=== PATIENT | female | born 1940 | race Caucasian/White ===

== ENCOUNTER → 2018-02-16 13:00 | Outpatient (CLI) | payer MEDICARE, SELFPAY | PROVIDERS: PCP Family Medicine | DX: Z23 Encounter for immunization (principal) | CPT/HCPCS: 90471; 90662 ==

== ENCOUNTER → 2018-06-16 08:42 | Outpatient (CLI) | payer MEDICARE, SELFPAY ==
[2018-06-16 10:00] LABS: Hemoglobin A1C% w Est Avg Glu 5.7 % (4.0-6.0)
[2018-06-16 10:43] LABS: Alanine Aminotransferase 25 IU/L (9-52); Albumin 4.4 g/dL (3.5-5.0); Albumin Globulin Ratio 1.5 (1.0-2.8); Alkaline Phosphatase 53 U/L (38-126); Aspartate Aminotransferase 27 IU/L (14-36); BUN Creatinine Ratio 25.7 (6-22); Bilirubin Total 0.7 mg/dL (0.2-1.3); Blood Urea Nitrogen 18 mg/dL (7-17); Calcium 9.8 mg/dL (8.4-10.2); Carbon Dioxide 28 mmol/L (22-32); Chloride 102 mmol/L (98-107); Cholesterol 203 mg/dL (140-199); Estimated Glomerular Filt Rate > 60.0 mL/min (>60); Globulin 2.9 g/dL (1.7-4.1); Glucose 114 mg/dL (80-110); HDL Cholesterol 55 mg/dL (40-60); HEMOLYSIS < 15 (0-50); LDL Cholesterol Calculated 120 mg/dL (<100); Potassium 5.1 mmol/L (3.4-5.1); Sodium 140 mmol/L (137-145); Total Protein 7.3 g/dL (6.3-8.2); Triglycerides 141 mg/dL (35-150)
== END ==
PROVIDERS: PCP Family Medicine; Visit Provider Family Medicine
DX: E11.9 Type 2 diabetes mellitus without complications (principal); Z13.220 Encounter for screening for lipoid disorders
CPT/HCPCS: 36415; 80053; 80061; 83036

== ENCOUNTER → 2019-03-10 17:59 | Outpatient (CLI) | payer MEDICARE, SELFPAY | PROVIDERS: PCP Family Medicine | DX: Z23 Encounter for immunization (principal) | CPT/HCPCS: 90471; 90662 ==

== ENCOUNTER → 2020-01-29 14:08 | Outpatient (CLI) | payer MEDICARE, SELFPAY ==
[2020-01-30 22:54] LABS: COVID19 Sendout Not Detected (Not Detected)
== END ==
PROVIDERS: PCP Family Medicine; Visit Provider Physician Assistant
DX: Z11.59 Encounter for screening for other viral diseases (principal)
CPT/HCPCS: 87635

== ENCOUNTER 2020-02-01 10:24 | Day surgery (SDC) | payer MEDICARE, SELFPAY ==
--- NOTE | 2020-01-30 12:48 | PM.PREOP ---
Pre-operative Note COVID-19 COVID-19 status: Negative Interval Note History & Physical reviewed/Exam performed by Physician: Yes Changes to H&P: No H&P completed within 30 days and has changed as indicated here:: Fasting glucose at surgery 120
--- NOTE | 2020-02-01 08:37 | P.OP_ITS ---
Operative Date/Time/Diagnoses Date of procedure: 02/01/20 Time of procedure: 11:45 Procedure & Clinicians Procedure: Preoperative diagnoses: 1. Right nuclear sclerotic and cortical cataract. 2. Diabetes without retinopathy. No longer treated after 100 lb weight loss. 3. status post left lower lid resection for basal cell carcinoma. Postoperative diagnoses: 1. Cataract removed by phacoemulsification with placement of posterior chamber intraocular lens. Procedure: Phacoemulsification with posterior chamber intraocular lens implant Surgeon: Mouna Wang MD Complications: None Specimen: None Implant: [id number]+22.5 Blood loss: None Anesthesia: Retrobulbar with monitored standby Description of procedure: Patient presents with a complaint of decreased vision due to cataract which is affecting activities of daily living distance and near. The patient wants surgery to improve vision. She understands the extra risk of having surgery during cold with 19 and tested negative prior to surgery for the virus. The patient was taken to the operating room and given IV sedation. A retrobulbar block consisting of 6 cc of 2% xylocaine without epinephrine mixed half and half with 0.5% Marcaine with 1 cc of hyaluronidase added is placed between the medial and lateral 1/3 of the inferior orbital rim. The eye is manually massaged for 30 sec, prepped using Betadine solution, and draped in the usual sterile fashion. Temporal approach was made, a 1 mm side-port incision was made 90? from the proposed clear corneal incision position. Phenylephrine 1.5% mixed with 1% xylocaine 0.2 cc was placed into the anterior chamber. Viscoat followed by Healon was then placed. A 2.6 mm clear incision with a 2.6 mm blade was placed. A 360 degree capsulorrhexis style capsulotomy was then performed with a cystitome needle on a Healon. Hydrodelineation and hydrodissection were performed. The phacoemulsification unit is introduced, and sculpting notice used to groove the central lens. It is then removed in chopping mode. Epi nucleus is removed with epinuclear mode and irrigation aspiration was used to remove the peripheral cortex. The posterior capsule is polished. The intraocular lens is selected, inspected, power confirmed, and placed in the posterior chamber. The wound was stromally hydrated and tested for leaks, there was none and it was left sutureless. Vigamox 0.1 cc was placed into the anterior chamber. Kenalog 0.2 cc was placed in the superior subconjunctival space. A drop of antibiotic and was placed and the eye was patched and shielded. The patient was stable and returned to the recovery room in excellent condition. Dictated by: Mouna Wang MD Copy to: [facility] Same procedure as scheduled: Yes
[2020-02-01] MEDS: PROPARACAINE 0.5% OPHTH SOL 2 DROPS EYE-OP (10:55)
[2020-02-01] MEDS: CATARACT EYE COMPOUND (10 DROPS/SYRINGE) 3 DROPS EYE-OP (10:58)
[2020-02-01 10:59] VITALS: BP 155/78; PULSE 70; RESP 114; TEMP 37; O2SAT 100; BMI 22.6
[2020-02-01] MEDS: LIDOCAINE 2% 4 ML, BUPIVACAINE 0.5% (PF) 4 ML, HYALURONIDASE 150 UNIT INJ (12:13)
[2020-02-01] MEDS: CHONDROIDTIN/SOD HYALURONATE 1.05 ML SYRINGE INTRAOCULA (12:24)
[2020-02-01] MEDS: ERYTHROMYCIN OPHTH 1 GM OINT 1 APPLIC EYE-RIGHT (12:25)
[2020-02-01] MEDS: HYALURONATE SODIUM 10 MG/ML SYRINGE INJ (12:25)
[2020-02-01] MEDS: MOXIFLOXACIN INJ 5 MG/ML VIAL EYE-OP (12:25)
[2020-02-01] MEDS: BALANCED SALT IRRIG SOLN NO.2 500 ML, EPINEPHrine 1 MG IRR (12:26)
[2020-02-01] MEDS: PHENYLEPHRINE/LIDOCAINE VIAL (OR) 0.2 ML EYE-OP (12:26)
[2020-02-01] MEDS: TRIAMCINOLONE 50 MG/5 ML VIAL INJ (12:26)
[2020-02-01 13:00] VITALS: BP 149/76; PULSE 57; RESP 16; TEMP 36.7; O2SAT 100
== END 2020-02-01 13:32 | disposition home or self-care (01) ==
LOC: OR 10:26
PROVIDERS: PCP Family Medicine; Referring Provider Ophthalmology; Visit Provider Ophthalmology
PROC: (CPT 66984; principal; 2020-02-01 11:45)
DX: H25.811 Combined forms of age-related cataract, right eye (principal); E11.9 Type 2 diabetes mellitus without complications
CPT/HCPCS: 66984; J0171; J2704; J3301; J3470

== ENCOUNTER → 2020-02-12 08:57 | Outpatient (CLI) | payer MEDICARE, SELFPAY ==
[2020-02-13 13:21] LABS: COVID19 Sendout Not Detected (Not Detect)
== END ==
PROVIDERS: PCP Family Medicine; Visit Provider Nurse Practitioner
DX: Z11.59 Encounter for screening for other viral diseases (principal)
CPT/HCPCS: 87635

== ENCOUNTER 2020-02-15 07:27 | Day surgery (SDC) | payer MEDICARE, SELFPAY ==
--- NOTE | 2020-02-14 17:36 | PM.PREOP ---
Pre-operative Note COVID-19 COVID-19 status: Negative Interval Note History & Physical reviewed/Exam performed by Physician: Yes Changes to H&P: No H&P completed within 30 days and has changed as indicated here:: No longer diabetic since 60 pound weight loss Fasting glucose this AM 121.
--- NOTE | 2020-02-15 07:41 | PM.OP.1 ---
Operative Date/Time/Diagnoses Date of procedure: 02/15/20 Time of procedure: 08:45 Procedure & Clinicians Procedure: Preoperative diagnoses: 1. Complex left advanced nuclear sclerotic and cortical cataract. 2. Diabetes controlled with weight loss. 3. Basal cell removal left lower lid by Mohs procedure with secondary reconstruction. Postoperative diagnoses: 1. Complex Cataract removed by phacoemulsification with placement of posterior chamber intraocular lens. Capsular dye was used. Procedure: Phacoemulsification with posterior chamber intraocular lens implant Surgeon: Mouna Wang MD Complications: None Specimen: None Implant: +25.5, target -1.50 Blood loss: None Anesthesia: Retrobulbar with monitored standby Description of procedure: Patient presents with a complaint of decreased vision due to cataract which is affecting activities of daily living. The patient wants surgery to improve vision. The cataract is now advanced due to delay of surgery for Covid 19 and for previous resection left lower lid for carcinoma. She required capsular dye. She has chosen a modified monovision target of -1.50. The patient was taken to the operating room and given IV sedation. A retrobulbar block consisting of 6 cc of 2% xylocaine without epinephrine mixed half and half with 0.5% Marcaine with 1 cc of hyaluronidase added is placed between the medial and lateral 1/3 of the inferior orbital rim. The eye is manually massaged for 30 sec, prepped using Betadine solution, and draped in the usual sterile fashion. Temporal approach was made, a 1 mm side-port incision was made 90? from the proposed clear corneal incision position. Phenylephrine 1.5% mixed with 1% xylocaine 0.2 cc was placed into the anterior chamber. A poor red reflex with anterior stromal haze was present. An air bubble was placed in this was followed by vision dye. This was then irrigated out with BSS. Viscoat followed by Healon was then placed. A 2.6 mm clear incision with a 2.6 mm blade was placed. A 360 degree capsulorrhexis style capsulotomy was then performed with a cystitome needle on a Healon greatly aided by the capsular dye. Hydrodelineation and hydrodissection were performed. The phacoemulsification unit is introduced, and sculpting notice used to groove the central lens. It is then removed in chopping mode. Epi nucleus is removed with epinuclear mode and irrigation aspiration was used to remove the peripheral cortex. The posterior capsule is polished. The intraocular lens is selected, inspected, power confirmed, and placed in the posterior chamber. The wound was stromally hydrated and tested for leaks, there was none and it was left sutureless. Vigamox 0.1 cc was placed into the anterior chamber. Kenalog 0.2 cc was placed in the superior subconjunctival space. A drop of antibiotic and was placed and the eye was patched and shielded. The patient was stable and returned to the recovery room in excellent condition. Dictated by: Mouna Wang MD Copy to: [facility] Same procedure as scheduled: Yes
[2020-02-15] MEDS: PROPARACAINE 0.5% OPHTH SOL 2 DROPS EYE-OP (07:55)
[2020-02-15] MEDS: CATARACT EYE COMPOUND (10 DROPS/SYRINGE) 3 DROPS EYE-OP (07:59)
[2020-02-15 08:07] VITALS: BP 180/72; PULSE 67; RESP 16; TEMP 36.8; O2SAT 97; BMI 22.4
[2020-02-15] MEDS: LIDOCAINE 2% 4 ML, BUPIVACAINE 0.5% (PF) 4 ML, HYALURONIDASE 150 UNIT INJ (08:50)
[2020-02-15] MEDS: ERYTHROMYCIN OPHTH 1 GM OINT 1 APPLIC EYE-LEFT (09:07)
[2020-02-15] MEDS: HYALURONATE SODIUM 10 MG/ML SYRINGE INJ (09:07)
[2020-02-15] MEDS: CHONDROIDTIN/SOD HYALURONATE 1.05 ML SYRINGE INTRAOCULA (09:07)
[2020-02-15] MEDS: MOXIFLOXACIN INJ 5 MG/ML VIAL EYE-OP (09:07)
[2020-02-15] MEDS: TRIAMCINOLONE 50 MG/5 ML VIAL INJ (09:08)
[2020-02-15] MEDS: PHENYLEPHRINE/LIDOCAINE VIAL (OR) 0.2 ML EYE-OP (09:08)
[2020-02-15] MEDS: TRYPAN BLUE 0.5 ML SYRINGE INJ (09:08)
[2020-02-15] MEDS: BALANCED SALT IRRIG SOLN NO.2 500 ML, EPINEPHrine 1 MG IRR (09:09)
[2020-02-15 09:35] VITALS: BP 157/72; PULSE 56; RESP 16; TEMP 36.1; O2SAT 98
== END 2020-02-15 10:07 | disposition home or self-care (01) ==
LOC: OR 07:29
PROVIDERS: PCP Family Medicine; Referring Provider Family Medicine; Visit Provider Ophthalmology
PROC: (CPT 66982; principal; 2020-02-15 08:45)
DX: H25.812 Combined forms of age-related cataract, left eye (principal); E11.9 Type 2 diabetes mellitus without complications
CPT/HCPCS: 66982; J0171; J2704; J3301; J3470

== ENCOUNTER → 2020-03-05 07:40 | Outpatient (CLI) | payer MEDICARE, SELFPAY ==
[2020-03-05 08:40] LABS: Hemoglobin A1C% w Est Avg Glu 5.7 % (4.0-6.0)
[2020-03-05 08:54] LABS: Alanine Aminotransferase 18 IU/L (<35); Albumin 4.5 g/dL (3.5-5.0); Albumin Globulin Ratio 1.7 (1.0-2.8); Alkaline Phosphatase 81 U/L (38-126); Aspartate Aminotransferase 27 IU/L (14-36); BUN Creatinine Ratio 25.8 (6-22); Bilirubin Total 0.6 mg/dL (0.2-1.3); Blood Urea Nitrogen 16 mg/dL (7-17); Calcium 9.5 mg/dL (8.4-10.2); Carbon Dioxide 29 mmol/L (22-32); Chloride 98 mmol/L (98-107); Cholesterol 178 mg/dL (140-199); Estimated Glomerular Filt Rate > 60.0 mL/min (>60); Globulin 2.7 g/dL (1.7-4.1); Glucose 96 mg/dL (80-110); HDL Cholesterol 70 mg/dL (40-60); HEMOLYSIS < 15 (0-50); LDL Cholesterol Calculated 90 mg/dL (<100); Potassium 4.7 mmol/L (3.4-5.1); Sodium 135 mmol/L (137-145); Total Protein 7.2 g/dL (6.3-8.2); Triglycerides 91 mg/dL (35-150)
== END ==
PROVIDERS: PCP Family Medicine; Referring Provider Family Medicine; Visit Provider Family Medicine
DX: E11.9 Type 2 diabetes mellitus without complications (principal); E66.3 Overweight; E78.5 Hyperlipidemia, unspecified
CPT/HCPCS: 36415; 80053; 80061; 83036

== ENCOUNTER → 2020-03-08 | Outpatient (CLI) | payer MEDICARE, SELFPAY | PROVIDERS: PCP Family Medicine; Referring Provider Internal Medicine; Visit Provider Internal Medicine | DX: Z23 Encounter for immunization (principal) | CPT/HCPCS: 90471; 90686 ==

== ENCOUNTER → 2020-04-06 09:01 | Outpatient (CLI) | payer MEDICARE, SELFPAY ==
--- NOTE | 2020-04-06 09:03 | DI.MG.S_ITS ---
BILATERAL DIGITAL SCREENING MAMMOGRAM 3D/2D WITH CAD: 04/06/2020 CLINICAL: Routine screening. Comparison is made to exams dated: 10/11/2015 mammogram, 07/25/2014 mammogram, and 02/24/2013 mammogram - [facility]. There are scattered fibroglandular elements in both breasts. Current study was also evaluated with a Computer Aided Detection (CAD) system. No significant masses, calcifications, or other findings are seen in either breast. There has been no significant interval change. IMPRESSION: NEGATIVE There is no mammographic evidence of malignancy. A 1 year screening mammogram is recommended. This exam was interpreted at Station ID: [id number]. NOTE: For mammograms, a report in lay terms will be sent to the patient. Approximately 15% of breast malignancies will not be visualized mammographically. In the management of a palpable breast mass, a negative mammogram must not discourage biopsy of a clinically suspicious lesion. Electronically Signed By: Alfonso dias/komal:04/06/2020 10:59:51 letter sent: Normal Exam ACR BI-RADS Category 1: Negative [id number]
--- NOTE | 2020-04-06 09:03 | DI.ECHO.S_ITS ---
[place]---------+ [facility] +---------+ : : [address] : : : : [phone] : : : : Phone: [phone] Echocardiogram Report + + :Name: MILAN KEITA Study Date: 04/06/2020 Height: 70 in : :[facility] Weight: 153 lb : : Gender: Female BSA: 1.9 m2 : :: 1940 Age: 80 yrs BP: 183/88 mmHg: :Reason For Study: MURMUR : :Ordering Physician: Lily : :Buck Performed By: Hollie Arguello : :Referring: LILY GREY : + + Interpretation Summary 1) Normal left ventricular thickness, size, wall motion, and systolic function (EF 60-65%). 2) The right ventricle is mildly dilated and has normal function. 3) Aortic valve is sclerotic with no stenosis or regurgitation. 4) Severe hypertension present during the study (BP 183/88mmHg). 5) No prior Echo available for comparison. Procedure: A two-dimensional transthoracic echocardiogram with color flow and Doppler was performed. The study quality was technically adequate. There is no prior echocardiogram noted for this patient. The patient was in normal sinus rhythm during the exam. Left Ventricle: The left ventricle is normal in size and wall thickness. Proximal septal thickening is noted. The ejection fraction is estimated to be 60-65%. Left ventricular systolic function appears normal without focal wall motion abnormalities. Diastolic parameters suggest probable normal left ventricular diastolic function and normal filling pressures. Right Ventricle: The right ventricle is mildly dilated. The right ventricular systolic function is normal. Atria: The left atrial size is normal. Right atrial size is normal. There is no Doppler evidence for an interatrial shunt. Mitral Valve: The mitral valve leaflets are mildly calcified. There is mild mitral annular calcification. There is trace mitral regurgitation. Aortic Valve: The aortic valve is trileaflet. The aortic valve opens well. The aortic valve is mildly calcified. There is no aortic valve stenosis. No aortic regurgitation is present. Tricuspid Valve: The tricuspid valve is normal in structure and function. There is mild tricuspid regurgitation. The right ventricular systolic pressure is estimated to be at least 28 mmHg based on an estimated right atrial pressure of 3 mm Hg. Pulmonic Valve: The pulmonic valve leaflets are thin and pliable; valve motion is normal. There is mild pulmonic regurgitation. Great Vessels: The aortic root is normal size. The ascending aorta is at the upper limits of normal in size. The pulmonary artery is normal size. The IVC is of normal diameter and collapses greater than 50% with a sniff. This suggests a low right atrial pressure of 3 mm Hg. Pericardium/ Pleura There is no pericardial effusion. MMode/2D Measurements & Calculations LVIDd: 4.3 cm LVOT diam: 2.2 cm LVIDs: 3.0 cm Ao root diam: 3.3 cm FS: 29.6 % asc Aorta Diam: 3.6 cm IVSd: 0.84 cm LVPWd: 0.75 cm LV connelly. diameter/BSA (cm/m^2): 2.3 LV sys. diameter/BSA (cm/m^2): 1.6 LA A2 area: 22.6 cm2 RA long axis: 5.4 cm LA A4 area: 16.0 cm2 RA area: 16.8 cm2 LA length (vol): 5.0 cm RA vol: 44.3 ml LA vol: 61.1 ml RA : 23.8 ml/m2 LA vol index: 32.8 ml/m2 IVC diam: 2.0 cm RVD1 (basal): 4.7 cm TAPSE: 2.8 cm Doppler Measurements & Calculations Ao V2 max: 189.4 cm/sec LVOT Max Yovany: 139.3 cm/sec Ao V2 mean: 130.6 cm/sec LV V1 max P.8 mmHg Ao max P.3 mmHg LV V1 VTI: 30.9 cm Ao mean P.9 mmHg JACOB(I,D): 2.8 cm2 Ao V2 VTI: 41.3 cm JACOB(V,D): 2.8 cm2 sev ratio: 0.75 JACOB indexed to BSA (cm^2/m^2): 1.5 MV E max yovany: 56.6 cm/sec TR max yovany: 263.5 cm/sec MV A max yovany: 94.8 cm/sec TR max P.9 mmHg MV E/A: 0.60 PA V2 max: 108.2 cm/sec Med Peak E' Yovany: 5.5 cm/sec PA V2 mean: 73.6 cm/sec E/E' med: 10.3 PA mean P.5 mmHg Lat Peak E' Yovany: 5.7 cm/sec PA Accel Time: 0.11 sec E/E' lat: 10.0 E/e' average: 10.2 MV dec time: 0.29 sec SV(LVOT): 117.3 ml Reading Physician:12:20 PM
== END ==
PROVIDERS: PCP Family Medicine; Referring Provider Family Medicine; Visit Provider Family Medicine
DX: I07.1 Rheumatic tricuspid insufficiency (principal); R01.1 Cardiac murmur, unspecified; Z12.31 Encounter for screening mammogram for malignant neoplasm of breast
CPT/HCPCS: 77063; 77067; 93306

== ENCOUNTER 2020-05-26 14:17 | Emergency (ER) | payer MEDICARE, SELFPAY ==
[2020-05-26 14:25] VITALS: BP 202/91; PULSE 76; RESP 16; TEMP 36.1; O2SAT 99; BMI 21.7
[2020-05-26 16:12] VITALS: PULSE 82; O2SAT 96
[2020-05-26 16:13] VITALS: BP 225/98; PULSE 81; O2SAT 98
--- NOTE | 2020-05-26 16:27 | ED_ITS ---
HPI - Back Pain/Injury General Chief Complaint: Back Pain/Injury Stated Complaint: Lower Back Pain, Left Side, Nauseous Time Seen by Provider: 05/26/20 16:13 Source: patient Mode of arrival: Ambulatory Limitations: no limitations History of Present Illness HPI Narrative: 80-year-old female diabetic complains of many days of left lower back pain. She states the pain is worse when she moves and improves with rest. She denies any radiation of the pain. She has no numbness, tingling or weakness. She denies any specific trauma. She denies any urinary complaints such as dysuria, frequency or urgency. She denies any trouble controlling bowel or bladder. She attributes the low back pain to and uncomfortable sleeping situation at home as she has a broken, old mattress. She denies much in the way of improvement with the Tylenol and Motrin she has been taking. She denies headache, blurred vision or trouble with speech. She denies chest pain or shortness of breath. She denies abdominal pain or nausea or vomiting. MD Complaint: back pain Onset (ago): day(s) Duration: constant Similar Symptoms Previously: No Location: lumbar spine Severity: moderate Quality: aching Radiation: none Relieving factors: immobilization Exacerbating factors: walking Associated symptoms: denies other symptoms Related Data Home Medications Medication Instructions Recorded Confirmed NAPROXEN (NAPROSYN) 500 mg PO Q DAY #0 02/04/12 02/29/20 acetaminophen 500 mg capsule 500 - 1,000 mg PO Q6H PRN 10/31/19 02/29/20 Previous Rx's Medication Instructions Recorded oxyquinoline 0.025 %-sodium lauryl 1 each VAG .3x Weekly #113.4 gram 10/31/19 sulfate 0.01 % vaginal gel cyclobenzaprine 10 mg PO TID PRN #14 tab 05/26/20 lidocaine [Lidoderm] 1 patch TOP DAILY #15 each 05/26/20 Allergies Allergy/AdvReac Type Severity Reaction Status Date / Time No Known Drug Allergies Allergy Verified 05/26/20 14:28 Review of Systems Constitutional Constitutional: Denies chills, Denies fatigue, Denies fever(s), Denies frequent falls, Denies lethargy and Denies weakness Eyes Eyes: Denies change in vision, Denies eye discharge, Denies irritation and Denies loss of vision ENT Ears, Nose, Mouth, and Throat: Denies change in voice, Denies dizziness, Denies neck pain, Denies sore throat and Denies throat swelling Cardiovascular Cardiovascular: Denies chest pain, Denies irregular heart rhythm, Denies lightheadedness, Denies palpitations, Denies dyspnea, Denies dyspnea on exertion and Denies orthopnea Respiratory Respiratory: Denies cough, Denies dyspnea, Denies dyspnea on exertion and Denies wheezing Gastrointestinal Gastrointestinal: Denies abdominal pain, Denies change in bowel habits, Denies diarrhea, Denies nausea and Denies vomiting Musculoskeletal Musculoskeletal: Reports back pain, Denies neck pain and Denies numbness Integumentary/Breasts Skin/Breast: Denies pruritus, Denies erythema, Denies rash and Denies wounds Neurologic Neurologic: Denies behavioral changes, Denies confusion, Denies dizziness, Denies frequent falls, Denies loss of vision, Denies numbness and Denies weakness Psychiatric Psychiatric: Denies anxiety, Denies behavioral changes, Denies confusion, Denies depression, Denies homicidal ideation and Denies suicidal ideation Endocrine Endocrine: Denies fatigue, Denies flushing and Denies palpitations Hematologic/Lymphatic Hematologic/Lymphatic: Denies easy bruising Allergic/Immunologic Allergic/Immunologic: Denies urticaria, Denies throat swelling and Denies wheezing Patient History Medical History Arthritis Cataract Chicken pox Diabetes mellitus (1992) Dry skin dermatitis (2011) Foot pain (2012) 1 para 1 Hearing loss (2010) Intracervical pessary Measles (1948) Mumps (1947) Nasal bone fracture Normal Papanicolaou smear Osteoarthritis Peripheral neuropathy (1992) Rubella Skin cancer (1993) Surgical History Anesthesia History of cataract removal with insertion of prosthetic lens History of cataract removal with insertion of prosthetic lens History of third molar tooth extraction (1953) History of tonsillectomy (1947) Status post biopsy of skin (1987) Status post hysterectomy (03/26/09) Family History Father No problems noted. Grandfather Heart attack Grandmother Leukemia Mother Glioblastoma multiforme Brother No problems noted. Family/Other No problems noted. Social History marital status: household members: none Smoking Status: Former smoker alcohol intake: former substance use type: does not use Smoking Status: Former smoker Substance Use Type: does not use Exam Narrative Exam Narrative: GENERAL: [80] year old patient appears stated age. Well- nourished, well-developed patient, in mild distress. Standing upright in her room, rubbing her left lower back HEAD: Atraumatic. Normocephalic. EYES: Pupils equal round and reactive. Extraocular motions intact. No scleral icterus. No injection or drainage. ENT: Nose without bleeding, purulent drainage. Throat without erythema, tonsillar hypertrophy or exudate. Airway patent. NECK: Trachea midline. Non tender CARDIOVASCULAR: Regular rate and rhythm without murmurs, gallops, or rubs. RESPIRATORY: Clear to auscultation. Breath sounds equal bilaterally. No wheezes, rales, or rhonchi. GASTROINTESTINAL: Abdomen soft, non-tender, nondistended. EXTREMITIES: No edema or joint tenderness. BACK: No CVA tenderness. Patient reports pain in a very precise spot just left of the midline on the left upper sacrum. She has no saddle anesthesia, lower extremity weakness, numbness. Patellar reflexes bilaterally 1+ NEURO: AOx3. SKIN: No rash or erythema of visible areas Initial Vital Signs Initial Vital Signs: Vital Signs Temperature 97.0 F L 05/26/20 14:25 Pulse Rate 76 05/26/20 14:25 Respiratory Rate 16 05/26/20 14:25 Blood Pressure 202/91 H 05/26/20 14:25 Pulse Oximetry 99 05/26/20 14:25 Course Orders Ordered: Discontinued Medications Cyclobenzaprine HCl (Cyclobenzaprine 10 Mg Prepack) 1 bottle MISC SEEINSTR ONE Stop: 05/26/20 17:33 Last Admin: 05/26/20 17:38 Dose: 1 bottle Documented by: RIP Lidocaine (Lidocaine Patch 1 Each Adh..Patch) 1 each TOP NOW ONE Stop: 05/26/20 17:33 Last Admin: 05/26/20 17:38 Dose: 1 each Documented by: RIP Vital Signs Vital signs: Vital Signs - 8 hr 05/26/20 14:25 05/26/20 16:12 05/26/20 16:13 Temperature 97.0 F L Pulse Rate 76 82 81 Respiratory Rate 16 Blood Pressure 202/91 H 225/98 H Pulse Oximetry 99 96 98 05/26/20 17:41 Temperature Pulse Rate 76 Respiratory Rate 18 Blood Pressure 216/95 H Pulse Oximetry 98 MDM - Back Pain/Injury MDM Narrative Medical decision making narrative: Multiple etiologies for patient's symptoms considered including: [Musculoskeletal pain versus kidney stone versus UTI versus lumbar radiculopathy versus other. Multiple etiologies of back pain considered including; Epidural abscess, cauda equina, mass occupying lesion, and other considered Patient's symptoms improved over duration of stay with above-stated therapies. Findings and discharge diagnosis discussed with patient/family followed by verbalization of understanding Return precautions discussed with patient/family whom verbalize understanding. Discharge Plan Departure Patient Disposition: Home Clinical Impression: Lumbar paraspinal muscle spasm Activity Restrictions/Additional Instructions: *You have been diagnosed with [lumbar spasm without sciatica] *What to do: *Take medications as directed *Follow up with your primary care provider in 2-3 days, call for an appointment. Let them know you were seen in the Emergency Department and that we ask that you be seen in follow up *Return to ER if you should have any new, worsening or concerning symptoms Prescriptions: New cyclobenzaprine 10 mg tablet 10 mg PO TID PRN (Reason: muscle spasm) Qty: 14 RF: 0 lidocaine [Lidoderm] 5 % adhesive patch,medicated 1 patch TOP DAILY Qty: 15 RF: 0 No Action NAPROXEN (NAPROSYN) 500 mg PO Q DAY Qty: 0 RF: 0 acetaminophen 500 mg capsule 500 - 1,000 mg PO Q6H PRN (Reason: pain) RF: 0 Trimo-Suazo Jelly 0.025-0.01 % gel 1 each VAG .3x Weekly Qty: 113.4 RF: 12 Referrals: Luz Jane DO [Primary Care Provider] -
[2020-05-26] MEDS: CYCLOBENZAPRINE 10 MG PREPACK 1 BOTTLE MISC (17:38)
[2020-05-26] MEDS: LIDOCAINE PATCH 1 EACH ADH..PATCH TOP (17:38)
[2020-05-26 17:41] VITALS: BP 216/95; PULSE 76; RESP 18; O2SAT 98
== END 2020-05-26 17:48 | disposition home or self-care (01) ==
PROVIDERS: Emergency Provider Emergency Medicine; PCP Family Medicine
DX: M62.830 Muscle spasm of back (principal)
CPT/HCPCS: 99281; 99283

== ENCOUNTER → 2020-05-30 11:05 | Outpatient (CLI) | payer MEDICARE, SELFPAY ==
--- NOTE | 2020-05-30 11:06 | DI.RAD.S_ITS ---
PROCEDURE: XR LUMBAR SPINE 2-3V INDICATIONS: low back pain TECHNIQUE: 3 views of the lumbar spine were acquired. COMPARISON: None. FINDINGS: Bones: [id number] compression fractures involving L1, L2, L3. Remaining vertebral body heights appear grossly preserved. Diffuse spondylosis and facet arthropathy. Multilevel degenerative endplate sclerosis and spurring. Mild to moderate diffuse lumbar disc space . Lateral curvature of the spine. Soft tissues: Scattered vascular calcifications seen in the aorta. IMPRESSION: [id number] L1-L2 and L3 compression fractures, technically age indeterminate. Recommend clinical correlation to assess acuity. If necessary, further evaluation with MRI could be performed Dictated by: Keaton Sequeira M.D. on 05/30/2020 at 13:07 Approved by: Keaton Sequeira M.D. on 05/30/2020 at 13:10
== END ==
PROVIDERS: PCP Family Medicine; Referring Provider Family Medicine; Visit Provider Family Medicine
DX: S32.029A Unspecified fracture of second lumbar vertebra, initial encounter for closed fracture (principal); S32.039A Unspecified fracture of third lumbar vertebra, initial encounter for closed fracture; M62.830 Muscle spasm of back
CPT/HCPCS: 72100

== ENCOUNTER → 2020-06-22 08:07 | Outpatient (CLI) | payer MEDICARE, SELFPAY ==
[2020-06-22] MEDS: COVID-19 VACC #1, MRNA(MOD) 100 MCG/0.5 ML VIAL IM (08:13)
== END ==
PROVIDERS: PCP Family Medicine; Visit Provider Internal Medicine
DX: Z23 Encounter for immunization (principal)
CPT/HCPCS: 0011A; 91301

== ENCOUNTER → 2020-07-20 08:04 | Outpatient (CLI) | payer MEDICARE, SELFPAY ==
[2020-07-20] MEDS: COVID-19 VACC #2, MRNA(MOD) 100 MCG/0.5 ML VIAL IM (08:07)
== END ==
PROVIDERS: PCP Family Medicine; Visit Provider Internal Medicine
DX: Z23 Encounter for immunization (principal)
CPT/HCPCS: 0012A; 91301

== ENCOUNTER 2020-09-07 09:45 | Outpatient (RCR) | payer MEDICARE, SELFPAY ==
--- NOTE | 2020-06-14 11:40 | PT.OIE ---
Current Diagnoses Low back pain (06/14/20) Muscle weakness (generalized) (06/14/20) Other abnormalities of gait and mobility (06/14/20) Abnormal posture (06/14/20) Past Medical History (Last Reviewed 05/26/20 @ 18:52 by Kendrick Santizo DO) Arthritis Cataract Chicken pox Diabetes mellitus (1992) Dry skin dermatitis (2011) Foot pain (2012) 1 para 1 Hearing loss (2010) Intracervical pessary Measles (1947) Mumps (1947) Nasal bone fracture Normal Papanicolaou smear Osteoarthritis Peripheral neuropathy (1992) Rubella Skin cancer (1993) Past Surgical History (Last Reviewed 05/26/20 @ 18:52 by Kendrick Santizo DO) Anesthesia History of cataract removal with insertion of prosthetic lens History of cataract removal with insertion of prosthetic lens History of third molar tooth extraction (1953) History of tonsillectomy (1947) Status post biopsy of skin (1987) Status post hysterectomy (03/26/09) Visit Care Team Role Provider Type Luz Jane DO Attending Provider Physician Primary Care Provider Referring Provider Specialty: [facility] Address: [address] [place] [address], [address], [facility] Email: [email or web address] Physical Therapy Initial Evaluation PT-OP-A Visit Information Start: 06/11/20 18:12 Freq: Status: Active Protocol: Document 06/14/20 09:51 LRN (Rec: 06/14/20 11:35 SURIN [id number]) Out-Patient Physical Therapy Visit Information Visit Information Visit Type Initial Evaluation Visit Start Time 09:51 Visit Stop Time 10:40 Total Visit Minutes 49 Visit Number 1 Evaluation Information Evaluation Date 06/14/20 Precautions Precautions X-rays show Compression fx's L1, L2, L3 age indeterminate. Uncontrolled HBP Diabetes II PT-OP-B Current Condition Start: 06/11/20 18:12 Freq: Status: Active Protocol: Document 06/14/20 09:51 LRN (Rec: 06/14/20 11:35 LRN [id number]) Current Condition History of Current Condition Onset Date 05/24/20 Current Complaints Back pain once up and walking. Back brace helps when moving History of Current Condition States has happened once before in March 2020 and with walking, just got over it, and overdosed self on aspirin, without seeing physician. States this time doesn't know what she did to cause the pain. Currently has been wearing a back brace given by primary care physician when up and moving most of the time unless getting up to get water. Walking again, yesterday walked 4/10 of a mile over the course of the day. Prior Treatments and Tests Pt reports she was told X-rays show L1-L3 has compression fractions. Report 05/30/20 indicates: [id number] L1-L2 and L3 compression fractures, technically age indeterminate. Treatment Goals Patient/Caregiver Goals Pt goal with therapy is to get back walking up/down her hallway 30x (mile and half in the house), elminate back pain , return to prior level of functioin without back brace. Prior Functional Status Baseline Function- ADL's Independent Baseline Function- Mobility Independent Baseline Function- Gait Walked 3-4 miles a day. Current Functional Impairments (Reported) Functional Limitations- ADL's Back pain after 10 steps Functional Limitations- Mobility/Gait Hunched over in standing Not walking outside because too unstable. Walks inside 10x in hallway max. With brace on, no back pain; without brace has back pain. Functional Limitations- Other Refuses to take Opioids. Personal Factors Other Personal Factors That May Effect Lives alone, Diabetes II, Therapy/Recovery neuropathy, high blood pressure uncontrolled, fall history with last in 2013. PT-OP-C Subjective Start: 06/11/20 18:12 Freq: Status: Active Protocol: Document 06/14/20 09:51 LRN (Rec: 06/14/20 11:35 LRN [id number]) Patient Questionnaires Oswestry Low Back Index Oswestry Score 15 Oswestry Impairment 1 to 19% Impaired (Score 1-19) OP-PT Pain Assessment Pain Assessment Grid Paper Pain Assessment Grid Completed Yes Location Back Pain Location Details Centered in the back Intensity 3 Scale Used Numeric (0 - 10) Description Aching,Burning,Dull Pain Duration No pain with back brace Pain Aggravating Factors Walking Other Pain Aggravating Factors Hunched over causing pain, wearing brace there is no pain Pain Alleviating Factors Cold,Heat,Sitting Other Pain Alleviating Factors Lying on side to sleep at night. Patient Stated Pain Goal No pain PT-OP-G Mobility & Gait Start: 06/11/20 18:12 Freq: Status: Active Protocol: Document 06/14/20 09:51 LRN (Rec: 06/14/20 11:35 LRN [id number]) OP Gait Assessment Gait Gait Assistance Required: Independent Able to Maintain Weight Bearing Status Yes During Gait Assistive Devices Assistive Device None Gait Deviations General Gait Pattern Wide Based Gait Factors Limiting Gait Function Factors Limiting Gait Function Decreased Activity Tolerance, Pain Comments Gait Comments Pt ambulates into therapy with notable forward bent posturing. PT-OP-H Neuro Start: 06/11/20 18:12 Freq: Status: Active Protocol: Document 06/14/20 09:51 LRN (Rec: 06/14/20 11:35 LRN [id number]) Sensation Evaluation Gross Sensation Gross Sensation WNL Comments Summary Comments Bottoms of feet not checked. PT-OP-J Posture/Palpation/Skin Start: 06/11/20 18:12 Freq: Status: Active Protocol: Document 06/14/20 09:51 LRN (Rec: 06/14/20 11:35 LRN [id number]) Posture Evaluation Position Sitting Evaluation View Anterior & lateral Head/C-Spine Posture Forward Head T-Spine Posture Increased Kyphosis L-Spine Posture Decreased Lordosis Shoulder Posture (L) Rounded,(R) Rounded,(L) Forward,(R) Forward Standing Evaluation View Anterior & Lateral Head/C-Spine Posture Forward Head T-Spine Posture Increased Kyphosis Shoulder Posture (L) Rounded,(R) Rounded,(L) Forward,(R) Forward Pelvis Posture Posterior Tilted,(R) PSIS Posterior,(L) PSIS Inferior Hip Posture (L) Flexed,(R) Flexed Knee Posture (L) Excess Flexion,(R) Excess Flexion Ankle/Foot Posture (L) Pronated,(R) Pronated Palpation Assessment Location L2 spinous process Palpation Location L2 spinous process with PA pressure Palpation Findings Tenderness Palpation Details No pain at transverse processes. No pain at levels of L1 & L3 of spinous process with PA pressure and at transverse processes. Low Back Palpation Location Sacral region and PSIS bilaterally Palpation Findings Tenderness PT-OP-K Range of Motion Start: 06/11/20 18:12 Freq: Status: Active Protocol: Document 06/14/20 09:51 LRN (Rec: 06/14/20 11:35 LRN [id number]) Lumbar Spine Range of Motion Lumbar Spine Active Degrees Testing Position Standing Flexion 100 Extension 10 Lateral Flexion Left 15 Lateral Flexion Right 10 ROM Limitations Pain Comments Trunk flex is with 90 deg's hip flexion (knees flexed) Trunk ext is with 10 deg's hip ext (knees flexed) PT-OP-M Strength Start: 06/11/20 18:12 Freq: Status: Active Protocol: Document 06/14/20 09:51 LRN (Rec: 06/14/20 11:35 LRN [id number]) Hip Strength Hip Manual Muscle Testing Right Flexion (L2) 3 Fair Abduction 5 Normal Adduction 5 Normal Left Flexion (L2) 3 Fair Abduction 5 Normal Adduction 5 Normal Knee Strength Knee Manual Muscle Testing Right Comments Generally 5/5 Left Comments Generally 5/5 Ankle/Foot Strength Ankle and Foot Manual Muscle Testing Left Dorsiflexion (L4) 3 Fair Plantarflexion (S1) 5 Normal Right Dorsiflexion (L4) 5 Normal Plantarflexion (S1) 5 Normal PT-OP-Q Treatments Start: 06/11/20 18:12 Freq: Status: Active Protocol: Document 06/14/20 09:51 LRN (Rec: 06/14/20 11:35 LRN [id number]) Self-Care/Home Management Treatment Education Patient Education Home Exercise Program,Posture Other Education Pt educated in result of evaluation with goals discussed and set. Pt educated in sitting posture with recommendation to try a folded towel in the small of the back to improve sitting posture. Discussed best method of transfers in/out of bed with log roll method. Activities Self-Care/Home Management Activities I/S pt in QL strengthening for postural retraining. I/S with physical cuing given in sidelie and in sitting. Pt needed much cuing to achieve appropriate contraction of QL to achieve lumbar lordosis and improved posture. I/S repeated several time for holding times and force of contraction to be gradual and slow to avoid increasing pain. PT-OP-T Assessment and Plan Start: 06/11/20 18:12 Freq: Status: Active Protocol: Document 06/14/20 09:51 LRN (Rec: 06/14/20 11:35 LRN [id number]) Physical Therapy Assessment Rehab Potential Rehabilitation Potential Good Evaluation Complexity Number of Personal Factors/Comorbidities 3 or More Number of Body Systems Impaired 4 or More Clinical Presentation at Evaluation Evolving Impairments Impairments Activity Tolerance,Gait,Pain, Posture,Soft Tissue Mobility, Strength Other Impairments L1, L2, L3 compression fractures, technically age indeterminate. Goals Four Impairment Poor posture in sitting and standing Short Term Goal (STG) Pt will demonstrate improved sitting posture knowledge by self correcting on request, and improved standing posture with less flexion at hips and knees (Initial: hip flexion 10 deg's, knee flexion 15 deg's) . STG Duration 07/20/20 Sewer Pipe Layer Helper Goal (LTG) Pt will demonstrate improve posture as noted by decrease vertical distance between C7 and L5 (Initial: 49 cm). LTG Duration 09/12/20 Three Impairment Decreased walking ability Short Term Goal (STG) Pt will be able to walk 10x in hallway without back brace without pain (Initial: pt must use back brace for no pain with walking 10x). STG Duration 07/20/20 Intermediate Goal (LTG) Pt will be able to return to her prior function of walking 1.5 miles in the house in a day without back brace and without pain LTG Duration 09/12/20 Two Impairment Low back pain rated 3/10 with activity/walking Short Term Goal (STG) Decrease low back pain to 1-2/ 10 with activity or walking. STG Duration 07/20/20 Sewer Pipe Layer Helper Goal (LTG) Pt will have 0-1/10 back pain with walking and no pain with functional activities at home (able to stand for functional activities such as cooking). LTG Duration 09/12/20 One Impairment Lack of appropriate self care HEP. Short Term Goal (STG) Pt will be educated on a self care spinal extension program. STG Duration 07/06/20 Intermediate Goal (LTG) Pt will be independent on a self care progressive core stablization program. LTG Duration 09/12/20 Assessment Summary Assessment Pt presents with low back pain at the level of the sacrum that appears to be mechanical in nature due to poor posturing. The lumbar compression fractures are much higher than the level of her pain and are contributing to her LBP because she avoids proper standing posture due to the pain, resulting in her forward bending posture at the hips. The pt does appear to have soft tissue nerve dysfunction on the left at the level of L5, as noted by neurological weakness of her L ankle dorsiflexors. She has no sensation changes or pain, only weakness. Her rehabilitation may be prolonged due to her bony changes and her uncontrolled high blooe pressure. The pt will benefit from skilled physical therapy to decrease her back pain, improve her posture, return the pt to her prior level of function and education and placement on a [facility]. Physical Therapy Plan Frequency and Duration Frequency of Treatment 2x/Week Plan of Care Start Date 06/14/20 Plan of Care End Date 09/12/20 Therapeutic Interventions Therapeutic Interventions Gait Training,Home Exercise Program,Joint Mobilizations, Manual Therapy,Neuromuscular Re-education,Patient/Caregiver Education,Self-Care/Home Management,Soft Tissue Mobilization,Therapeutic Exercises Modalities Cold Pack/Ice Massage,Electric Stimulation,Hot Packs, Ultrasound Next Visit Focus/Plan Next Note Type Treatment Note Next Visit Plan Review QL strengthening ex ( tailbone lift). Educate pt in proper sitting posture ( uncross legs and support low back), STM: Lumbar paraspinals, manual pelvic rocking of sacrum. Progress gentle trunk ext strengthening (for compression fractures) & postural stabilization exercises for spinal ext, stretches: Pecs, and chin tucks. Progress towards improved endurance for walking without brace and pain.
--- NOTE | 2020-06-19 14:40 | PT.OTN ---
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 Back brace helps when moving History of Current Condition States has happened once before in March 2020 and with walking, just got over it, and overdosed self on aspirin, without seeing physician. States this time doesn't know what she did to cause the pain. Currently has been wearing a back brace given by primary care physician when up and moving most of the time unless getting up to get water. Walking again, yesterday walked 4/10 of a mile over the course of the day. Prior Treatments and Tests Pt reports she was told X-rays show L1-L3 has compression fractions. Report 05/30/20 indicates: [id number]-rx-avofpigp L1-L2 and L3 compression fractures, technically age indeterminate. Treatment Goals Patient/Caregiver Goals Pt goal with therapy is to get back walking up/down her hallway 30x (mile and half in the house), elminate back pain , return to prior level of functioin without back brace. Prior Functional Status Baseline Function- ADL's Independent Baseline Function- Mobility Independent Baseline Function- Gait Walked 3-4 miles a day. Current Functional Impairments (Reported) Functional Limitations- ADL's Back pain after 10 steps Functional Limitations- Mobility/Gait Hunched over in standing Not walking outside because too unstable. Walks inside 10x in hallway max. With brace on, no back pain; without brace has back pain. Functional Limitations- Other Refuses to take Opioids. Personal Factors Other Personal Factors That May Effect Lives alone, Diabetes II, Therapy/Recovery neuropathy, high blood pressure uncontrolled, fall history with last in 2013. PT-OP-C Subjective Start: 06/11/20 18:12 Freq: Status: Active Protocol: Document 06/19/20 13:51 SP (Rec: 06/19/20 15:14 SP [id number]) OP-PT Subjective Patient Comments Patient Comments Pt reported has been doing her tailbone lift exercise at home per instruction. PT-OP-G Mobility & Gait Start: 06/11/20 18:12 Freq: Status: Active Protocol: Document 06/14/20 09:51 LRN (Rec: 06/14/20 11:35 LRN [id number]) OP Gait Assessment Gait Gait Assistance Required: Independent Able to Maintain Weight Bearing Status Yes During Gait Assistive Devices Assistive Device None Gait Deviations General Gait Pattern Wide Based Gait Factors Limiting Gait Function Factors Limiting Gait Function Decreased Activity Tolerance, Pain Comments Gait Comments Pt ambulates into therapy with notable forward bent posturing. PT-OP-H Neuro Start: 06/11/20 18:12 Freq: Status: Active Protocol: Document 06/14/20 09:51 LRN (Rec: 06/14/20 11:35 LRN [id number]) Sensation Evaluation Gross Sensation Gross Sensation WNL Comments Summary Comments Bottoms of feet not checked. PT-OP-J Posture/Palpation/Skin Start: 06/11/20 18:12 Freq: Status: Active Protocol: Document 06/14/20 09:51 LRN (Rec: 06/14/20 11:35 LRN [id number]) Posture Evaluation Position Sitting Evaluation View Anterior & lateral Head/C-Spine Posture Forward Head T-Spine Posture Increased Kyphosis L-Spine Posture Decreased Lordosis Shoulder Posture (L) Rounded,(R) Rounded,(L) Forward,(R) Forward Standing Evaluation View Anterior & Lateral Head/C-Spine Posture Forward Head T-Spine Posture Increased Kyphosis Shoulder Posture (L) Rounded,(R) Rounded,(L) Forward,(R) Forward Pelvis Posture Posterior Tilted,(R) PSIS Posterior,(L) PSIS Inferior Hip Posture (L) Flexed,(R) Flexed Knee Posture (L) Excess Flexion,(R) Excess Flexion Ankle/Foot Posture (L) Pronated,(R) Pronated Palpation Assessment Location L2 spinous process Palpation Location L2 spinous process with PA pressure Palpation Findings Tenderness Palpation Details No pain at transverse processes. No pain at levels of L1 & L3 of spinous process with PA pressure and at transverse processes. Low Back Palpation Location Sacral region and PSIS bilaterally Palpation Findings Tenderness PT-OP-K Range of Motion Start: 06/11/20 18:12 Freq: Status: Active Protocol: Document 06/14/20 09:51 LRN (Rec: 06/14/20 11:35 LRN [id number]) Lumbar Spine Range of Motion Lumbar Spine Active Degrees Testing Position Standing Flexion 100 Extension 10 Lateral Flexion Left 15 Lateral Flexion Right 10 ROM Limitations Pain Comments Trunk flex is with 90 deg's hip flexion (knees flexed) Trunk ext is with 10 deg's hip ext (knees flexed) PT-OP-M Strength Start: 06/11/20 18:12 Freq: Status: Active Protocol: Document 06/14/20 09:51 LRN (Rec: 06/14/20 11:35 LRN [id number]) Hip Strength Hip Manual Muscle Testing Right Flexion (L2) 3 Fair Abduction 5 Normal Adduction 5 Normal Left Flexion (L2) 3 Fair Abduction 5 Normal Adduction 5 Normal Knee Strength Knee Manual Muscle Testing Right Comments Generally 5/5 Left Comments Generally 5/5 Ankle/Foot Strength Ankle and Foot Manual Muscle Testing Left Dorsiflexion (L4) 3 Fair Plantarflexion (S1) 5 Normal Right Dorsiflexion (L4) 5 Normal Plantarflexion (S1) 5 Normal PT-OP-Q Treatments Start: 06/11/20 18:12 Freq: Status: Active Protocol: Document 06/19/20 13:51 SP (Rec: 06/19/20 15:14 SP [id number]) Therapeutic Exercises Supine Exercises Ls ext Supine Exercise Name towel roll at LS Comments brief, not tolerated so stopped Sidelying Exercises lumbar ext Sidelying Exercise Name tail bone lift QL facilitation Side bilateral Reps/Minutes 10sec x10 Sitting Exercises pirformis stretch Side bilateral Reps/Minutes 30 x2 Comments cued relax shlds, upright posture seated posture Sitting Exercise Name towel at LS Reps/Minutes 3 min Comments cued buttocks all way back, elevated ribcage, CS ext neutral w/ chin tuck Standing Exercises Self STMs Standing Exercise Name glut med, Pirfor, ES, QL Equipment Used racquetball roll back to wall Reps/Minutes 3 min total Comments good feedback results Manual Therapy Treatment Soft Tissue Mobilization Glut med, pirformis, ES, QL Body Location B Mobilization Type Myofascial Release,Strumming, Sustained Pressure,Other Intensity/Depth Moderate Body Position Sidelying Comments Pillow between B LE *Instructed PT-OP-T Assessment and Plan Start: 06/11/20 18:12 Freq: Status: Active Protocol: Document 06/19/20 13:51 SP (Rec: 06/19/20 15:14 SP [id number]) Physical Therapy Assessment Goals Four Impairment Poor posture in sitting and standing Short Term Goal (STG) Pt will demonstrate improved sitting posture knowledge by self correcting on request, and improved standing posture with less flexion at hips and knees (Initial: hip flexion 10 deg's, knee flexion 15 deg's) . STG Duration 07/20/20 Gantry Crane Operator Goal (LTG) Pt will demonstrate improve posture as noted by decrease vertical distance between C7 and L5 (Initial: 49 cm). LTG Duration 09/12/20 Three Impairment Decreased walking ability Short Term Goal (STG) Pt will be able to walk 10x in hallway without back brace without pain (Initial: pt must use back brace for no pain with walking 10x). STG Duration 07/20/20 Gantry Crane Operator Goal (LTG) Pt will be able to return to her prior function of walking 1.5 miles in the house in a day without back brace and without pain LTG Duration 09/12/20 Two Impairment Low back pain rated 3/10 with activity/walking Short Term Goal (STG) Decrease low back pain to 1-2/ 10 with activity or walking. STG Duration 07/20/20 Gantry Crane Operator Goal (LTG) Pt will have 0-1/10 back pain with walking and no pain with functional activities at home (able to stand for functional activities such as cooking). LTG Duration 09/12/20 One Impairment Lack of appropriate self care HEP. Short Term Goal (STG) Pt will be educated on a self care spinal extension program. STG Duration 07/06/20 Correction Goal (LTG) Pt will be independent on a self care progressive core stablization program. LTG Duration 09/12/20 Progress Towards Goals Progress Towards Goals Progressing Toward Goals,Slow Progress due to Activity Tolerance Progress Comments Pt improved on postural awareness and response to LS ext HEP. Assessment Summary Assessment Pt responded well to tx. Tx focused on manual then instruction on self STMs to B glut med, QL and review LS ext (QL facilitation) HEP with response of my back has felt better doing the tailbone lift told to do last time. Physical Therapy Plan Frequency and Duration Frequency of Treatment 2x/Week Plan of Care Start Date 06/14/20 Plan of Care End Date 09/12/20 Therapeutic Interventions Therapeutic Interventions Gait Training,Home Exercise Program,Joint Mobilizations, Manual Therapy,Neuromuscular Re-education,Patient/Caregiver Education,Self-Care/Home Management,Soft Tissue Mobilization,Therapeutic Exercises Modalities Cold Pack/Ice Massage,Electric Stimulation,Hot Packs, Ultrasound Next Visit Focus/Plan Next Note Type Treatment Note Next Visit Plan Assess response to last tx: manual, HEP review tail bone lift, added pirf stretch/ posture sitting w/ towel roll LS, added self STMs at wall and seated posture. Continue per PT POC: Review QL strengthening ex (tailbone lift). Review proper sitting posture (uncross legs and support low back), STM: Lumbar paraspinals, manual pelvic rocking of sacrum. Progress gentle trunk ext strengthening (for compression fractures) & postural stabilization exercises for spinal ext, stretches: Pecs, and chin tucks. Progress towards improved endurance for walking without brace and pain.
--- NOTE | 2020-06-21 13:53 | PT.OTN ---
Current Diagnoses Low back pain (06/21/20) Muscle weakness (generalized) (06/21/20) Other abnormalities of gait and mobility (06/21/20) Abnormal posture (06/21/20) Physical Therapy Treatment Note PT-OP-A Visit Information Start: 06/11/20 18:12 Freq: Status: Active Protocol: Document 06/21/20 09:54 LRN (Rec: 06/21/20 10:36 LRN [id number]) Out-Patient Physical Therapy Visit Information Visit Information Visit Type Treatment Note Visit Start Time 09:54 Visit Stop Time 10:34 Total Visit Minutes 40 Visit Number 3 Evaluation Information Evaluation Date 06/14/20 Precautions Precautions X-rays show Compression fx's L1, L2, L3 age indeterminate. Uncontrolled HBP Diabetes II PT-OP-B Current Condition Start: 06/11/20 18:12 Freq: Status: Active Protocol: Document 06/14/20 09:51 LRN (Rec: 06/14/20 11:35 LRN [id number]) Current Condition History of Current Condition Onset Date 05/24/20 Current Complaints Back pain once up and walking. Back brace helps when moving History of Current Condition States has happened once before in March 2020 and with walking, just got over it, and overdosed self on aspirin, without seeing physician. States this time doesn't know what she did to cause the pain. Currently has been wearing a back brace given by primary care physician when up and moving most of the time unless getting up to get water. Walking again, yesterday walked 4/10 of a mile over the course of the day. Prior Treatments and Tests Pt reports she was told X-rays show L1-L3 has compression fractions. Report 05/30/20 indicates: [id number] L1-L2 and L3 compression fractures, technically age indeterminate. Treatment Goals Patient/Caregiver Goals Pt goal with therapy is to get back walking up/down her hallway 30x (mile and half in the house), elminate back pain , return to prior level of functioin without back brace. Prior Functional Status Baseline Function- ADL's Independent Baseline Function- Mobility Independent Baseline Function- Gait Walked 3-4 miles a day. Current Functional Impairments (Reported) Functional Limitations- ADL's Back pain after 10 steps Functional Limitations- Mobility/Gait Hunched over in standing Not walking outside because too unstable. Walks inside 10x in hallway max. With brace on, no back pain; without brace has back pain. Functional Limitations- Other Refuses to take Opioids. Personal Factors Other Personal Factors That May Effect Lives alone, Diabetes II, Therapy/Recovery neuropathy, high blood pressure uncontrolled, fall history with last in 2013. PT-OP-C Subjective Start: 06/11/20 18:12 Freq: Status: Active Protocol: Document 06/21/20 09:54 LRN (Rec: 06/21/20 10:36 LRN [id number]) OP-PT Subjective Patient Comments Patient Comments States she felt really good with the STM last visit. Improving much faster with PT compared to the last time. OP-PT Pain Assessment Pain Assessment Grid Paper Pain Assessment Grid Completed No Location Back Pain Location Details R SIJ Intensity 5 PT-OP-G Mobility & Gait Start: 06/11/20 18:12 Freq: Status: Active Protocol: Document 06/14/20 09:51 LRN (Rec: 06/14/20 11:35 LRN [id number]) OP Gait Assessment Gait Gait Assistance Required: Independent Able to Maintain Weight Bearing Status Yes During Gait Assistive Devices Assistive Device None Gait Deviations General Gait Pattern Wide Based Gait Factors Limiting Gait Function Factors Limiting Gait Function Decreased Activity Tolerance, Pain Comments Gait Comments Pt ambulates into therapy with notable forward bent posturing. PT-OP-H Neuro Start: 06/11/20 18:12 Freq: Status: Active Protocol: Document 06/14/20 09:51 LRN (Rec: 06/14/20 11:35 LRN [id number]) Sensation Evaluation Gross Sensation Gross Sensation WNL Comments Summary Comments Bottoms of feet not checked. PT-OP-J Posture/Palpation/Skin Start: 06/11/20 18:12 Freq: Status: Active Protocol: Document 06/14/20 09:51 LRN (Rec: 06/14/20 11:35 LRN [id number]) Posture Evaluation Position Sitting Evaluation View Anterior & lateral Head/C-Spine Posture Forward Head T-Spine Posture Increased Kyphosis L-Spine Posture Decreased Lordosis Shoulder Posture (L) Rounded,(R) Rounded,(L) Forward,(R) Forward Standing Evaluation View Anterior & Lateral Head/C-Spine Posture Forward Head T-Spine Posture Increased Kyphosis Shoulder Posture (L) Rounded,(R) Rounded,(L) Forward,(R) Forward Pelvis Posture Posterior Tilted,(R) PSIS Posterior,(L) PSIS Inferior Hip Posture (L) Flexed,(R) Flexed Knee Posture (L) Excess Flexion,(R) Excess Flexion Ankle/Foot Posture (L) Pronated,(R) Pronated Palpation Assessment Location L2 spinous process Palpation Location L2 spinous process with PA pressure Palpation Findings Tenderness Palpation Details No pain at transverse processes. No pain at levels of L1 & L3 of spinous process with PA pressure and at transverse processes. Low Back Palpation Location Sacral region and PSIS bilaterally Palpation Findings Tenderness PT-OP-K Range of Motion Start: 06/11/20 18:12 Freq: Status: Active Protocol: Document 06/14/20 09:51 LRN (Rec: 06/14/20 11:35 LRN [id number]) Lumbar Spine Range of Motion Lumbar Spine Active Degrees Testing Position Standing Flexion 100 Extension 10 Lateral Flexion Left 15 Lateral Flexion Right 10 ROM Limitations Pain Comments Trunk flex is with 90 deg's hip flexion (knees flexed) Trunk ext is with 10 deg's hip ext (knees flexed) PT-OP-M Strength Start: 06/11/20 18:12 Freq: Status: Active Protocol: Document 06/14/20 09:51 LRN (Rec: 06/14/20 11:35 LRN [id number]) Hip Strength Hip Manual Muscle Testing Right Flexion (L2) 3 Fair Abduction 5 Normal Adduction 5 Normal Left Flexion (L2) 3 Fair Abduction 5 Normal Adduction 5 Normal Knee Strength Knee Manual Muscle Testing Right Comments Generally 5/5 Left Comments Generally 5/5 Ankle/Foot Strength Ankle and Foot Manual Muscle Testing Left Dorsiflexion (L4) 3 Fair Plantarflexion (S1) 5 Normal Right Dorsiflexion (L4) 5 Normal Plantarflexion (S1) 5 Normal PT-OP-Q Treatments Start: 06/11/20 18:12 Freq: Status: Active Protocol: Document 06/21/20 09:54 LRN (Rec: 06/21/20 10:36 LRN [id number]) Therapeutic Exercises Sidelying Exercises lumbar ext Sidelying Exercise Name tail bone lift QL facilitation Side bilateral Reps/Minutes 10sec x8 Sitting Exercises Seated Trunk ext Sitting Exercise Name Trunk ext in proper sitting posture Reps/Minutes 10 x 10 with extra time for training pirformis stretch Side bilateral Reps/Minutes 30 x2 Comments cued relax shlds, upright posture seated posture Sitting Exercise Name towel at LS Reps/Minutes 1 min Comments cued buttocks all way back, elevated ribcage, CS ext neutral w/ chin tuck Standing Exercises Iliopsoas stretch Standing Exercise Name Iliopsoas stretch Side bilateral Reps/Minutes 60 hold f/b 10 active stretches, extra time for training Comments Training for max tolerated stretch and proper positioning Self STMs Standing Exercise Name Glut med, Piriformis review Equipment Used Tennis Reps/Minutes 2' Manual Therapy Treatment Soft Tissue Mobilization Glut med, pirformis, ES, QL Body Location R Glut Med, Pirfomis, QL, L/S extensors. Mobilization Type Myofascial Release,Strumming, Sustained Pressure,Other Intensity/Depth Moderate Body Position Sidelying Comments Pillow between B LE Self-Care/Home Management Treatment Education Patient Education Home Exercise Program Activities Self-Care/Home Management Activities Issued & reviewed HEP: Iliopsoas stretch. PT-OP-T Assessment and Plan Start: 06/11/20 18:12 Freq: Status: Active Protocol: Document 06/21/20 09:54 LRN (Rec: 06/21/20 10:36 LRN [id number]) Physical Therapy Assessment Goals Four Impairment Poor posture in sitting and standing Short Term Goal (STG) Pt will demonstrate improved sitting posture knowledge by self correcting on request, and improved standing posture with less flexion at hips and knees (Initial: hip flexion 10 deg's, knee flexion 15 deg's) . STG Duration 07/20/20 Rosin Barrel Filler Goal (LTG) Pt will demonstrate improve posture as noted by decrease vertical distance between C7 and L5 (Initial: 49 cm). LTG Duration 09/12/20 Three Impairment Decreased walking ability Short Term Goal (STG) Pt will be able to walk 10x in hallway without back brace without pain (Initial: pt must use back brace for no pain with walking 10x). STG Duration 07/20/20 [facility] Goal (LTG) Pt will be able to return to her prior function of walking 1.5 miles in the house in a day without back brace and without pain. (06/21/20: Pt walking 1/4 mile total in hallway with rests without pain, wearing back brace). LTG Duration 09/12/20 Two Impairment Low back pain rated 3/10 with activity/walking Short Term Goal (STG) Decrease low back pain to 1-2/ 10 with activity or walking. STG Duration 07/20/20 (06/21/20: Rosin Barrel Filler Goal (LTG) Pt will have 0-1/10 back pain with walking and no pain with functional activities at home (able to stand for functional activities such as cooking). LTG Duration 09/12/20 One Impairment Lack of appropriate self care HEP. Short Term Goal (STG) Pt will be educated on a self care spinal extension program. STG Duration 07/06/20 [facility] Goal (LTG) Pt will be independent on a self care progressive core stablization program. LTG Duration 09/12/20 (06/21/20: Progressing) Progress Towards Goals Progress Comments Pt pain in R SIJ started 10/08, ending 0/10 after treatment ( STM). Piriformis stretching helps reduce pt as well. Assessment Summary Assessment Pt showed very good understanding of her HEP. Pt responding well to therapy with decrease in back pain after STM. Pt able to perform QL contraction in sidelie with L/S positioning to neutral (no lordosis). Physical Therapy Plan Frequency and Duration Frequency of Treatment 2x/Week Plan of Care Start Date 06/14/20 Plan of Care End Date 09/12/20 Next Visit Focus/Plan Next Note Type Treatment Note Next Visit Plan Review Iliopsoas stretch HEP from last tx. Continue per PT POC: Start lumbar ext strengthening ( gentle trunk ext strengthening for compression fractures & postural stabilization exercises for spinal ext), Progress QL strengthening ex ( tailbone lift). Assess pt's sitting posture prior to cuing. Review proper sitting posture (uncross legs and support low back), STM: Lumbar paraspinals, manual pelvic rocking of sacrum. Add Stretches: Pecs. Progress towards improved endurance for walking without brace and pain.
--- NOTE | 2020-06-26 10:32 | PT.OTN ---
Current Diagnoses Low back pain (06/26/20) Muscle weakness (generalized) (06/26/20) Other abnormalities of gait and mobility (06/26/20) Abnormal posture (06/26/20) Physical Therapy Treatment Note PT-OP-A Visit Information Start: 06/11/20 18:12 Freq: Status: Active Protocol: Document 06/26/20 09:46 LD (Rec: 06/26/20 12:03 LD [id number]) Out-Patient Physical Therapy Visit Information Visit Information Visit Type Treatment Note Visit Note CORTES Walter led treatment with supervision of IGOR Saeed. Visit Start Time 09:46 Visit Stop Time 10:32 Total Visit Minutes 45 Visit Number 4 Number of DIRECTOR OF HOME ECONOMICS Visits 2 PT-OP-B Current Condition Start: 06/11/20 18:12 Freq: Status: Active Protocol: Document 06/14/20 09:51 LRN (Rec: 06/14/20 11:35 LRN [id number]) Current Condition History of Current Condition Onset Date 05/24/20 Current Complaints Back pain once up and walking. Back brace helps when moving History of Current Condition States has happened once before in March 2020 and with walking, just got over it, and overdosed self on aspirin, without seeing physician. States this time doesn't know what she did to cause the pain. Currently has been wearing a back brace given by primary care physician when up and moving most of the time unless getting up to get water. Walking again, yesterday walked 4/10 of a mile over the course of the day. Prior Treatments and Tests Pt reports she was told X-rays show L1-L3 has compression fractions. Report 05/30/20 indicates: [id number] L1-L2 and L3 compression fractures, technically age indeterminate. Treatment Goals Patient/Caregiver Goals Pt goal with therapy is to get back walking up/down her hallway 30x (mile and half in the house), elminate back pain , return to prior level of functioin without back brace. Prior Functional Status Baseline Function- ADL's Independent Baseline Function- Mobility Independent Baseline Function- Gait Walked 3-4 miles a day. Current Functional Impairments (Reported) Functional Limitations- ADL's Back pain after 10 steps Functional Limitations- Mobility/Gait Hunched over in standing Not walking outside because too unstable. Walks inside 10x in hallway max. With brace on, no back pain; without brace has back pain. Functional Limitations- Other Refuses to take Opioids. Personal Factors Other Personal Factors That May Effect Lives alone, Diabetes II, Therapy/Recovery neuropathy, high blood pressure uncontrolled, fall history with last in 2013. PT-OP-C Subjective Start: 06/11/20 18:12 Freq: Status: Active Protocol: Document 06/26/20 09:46 LD (Rec: 06/26/20 12:03 LD [id number]) OP-PT Subjective Patient Comments Patient Comments Pt reports that she is doing alot better, 'still hunched over.' HEP is helpful. Bought herself a raquetball and is performing self massage at home, relieves pain. PT-OP-G Mobility & Gait Start: 06/11/20 18:12 Freq: Status: Active Protocol: Document 06/14/20 09:51 LRN (Rec: 06/14/20 11:35 LRN [id number]) OP Gait Assessment Gait Gait Assistance Required: Independent Able to Maintain Weight Bearing Status Yes During Gait Assistive Devices Assistive Device None Gait Deviations General Gait Pattern Wide Based Gait Factors Limiting Gait Function Factors Limiting Gait Function Decreased Activity Tolerance, Pain Comments Gait Comments Pt ambulates into therapy with notable forward bent posturing. PT-OP-H Neuro Start: 06/11/20 18:12 Freq: Status: Active Protocol: Document 06/14/20 09:51 LRN (Rec: 06/14/20 11:35 LRN [id number]) Sensation Evaluation Gross Sensation Gross Sensation WNL Comments Summary Comments Bottoms of feet not checked. PT-OP-J Posture/Palpation/Skin Start: 06/11/20 18:12 Freq: Status: Active Protocol: Document 06/14/20 09:51 LRN (Rec: 06/14/20 11:35 LRN [id number]) Posture Evaluation Position Sitting Evaluation View Anterior & lateral Head/C-Spine Posture Forward Head T-Spine Posture Increased Kyphosis L-Spine Posture Decreased Lordosis Shoulder Posture (L) Rounded,(R) Rounded,(L) Forward,(R) Forward Standing Evaluation View Anterior & Lateral Head/C-Spine Posture Forward Head T-Spine Posture Increased Kyphosis Shoulder Posture (L) Rounded,(R) Rounded,(L) Forward,(R) Forward Pelvis Posture Posterior Tilted,(R) PSIS Posterior,(L) PSIS Inferior Hip Posture (L) Flexed,(R) Flexed Knee Posture (L) Excess Flexion,(R) Excess Flexion Ankle/Foot Posture (L) Pronated,(R) Pronated Palpation Assessment Location L2 spinous process Palpation Location L2 spinous process with PA pressure Palpation Findings Tenderness Palpation Details No pain at transverse processes. No pain at levels of L1 & L3 of spinous process with PA pressure and at transverse processes. Low Back Palpation Location Sacral region and PSIS bilaterally Palpation Findings Tenderness PT-OP-K Range of Motion Start: 06/11/20 18:12 Freq: Status: Active Protocol: Document 06/14/20 09:51 LRN (Rec: 06/14/20 11:35 LRN [id number]) Lumbar Spine Range of Motion Lumbar Spine Active Degrees Testing Position Standing Flexion 100 Extension 10 Lateral Flexion Left 15 Lateral Flexion Right 10 ROM Limitations Pain Comments Trunk flex is with 90 deg's hip flexion (knees flexed) Trunk ext is with 10 deg's hip ext (knees flexed) PT-OP-M Strength Start: 06/11/20 18:12 Freq: Status: Active Protocol: Document 06/14/20 09:51 LRN (Rec: 06/14/20 11:35 LRN [id number]) Hip Strength Hip Manual Muscle Testing Right Flexion (L2) 3 Fair Abduction 5 Normal Adduction 5 Normal Left Flexion (L2) 3 Fair Abduction 5 Normal Adduction 5 Normal Knee Strength Knee Manual Muscle Testing Right Comments Generally 5/5 Left Comments Generally 5/5 Ankle/Foot Strength Ankle and Foot Manual Muscle Testing Left Dorsiflexion (L4) 3 Fair Plantarflexion (S1) 5 Normal Right Dorsiflexion (L4) 5 Normal Plantarflexion (S1) 5 Normal PT-OP-Q Treatments Start: 06/11/20 18:12 Freq: Status: Active Protocol: Document 06/26/20 09:46 LD (Rec: 06/26/20 12:03 LD [id number]) Therapeutic Exercises Supine Exercises Bridge Supine Exercise Name ADD HEP Side bilateral Reps/Minutes 10 Comments Cued for 'tailbone lift' ( lumbar ext) w/ core activation Core heel slide Supine Exercise Name Add HEP Side bilateral Reps/Minutes 10 Comments Cued for 'tailbone lift' ( lumbar ext.) w/core activation Sitting Exercises seated posture Sitting Exercise Name towel at LS Reps/Minutes 1 min Comments cued buttocks all way back, elevated ribcage, CS ext neutral w/ chin tuck Standing Exercises Pec corner stretch Standing Exercise Name Add HEP Equipment Used corner, doorway Reps/Minutes 2-3 for 15 Comments Cued for chin tuck, also performs her own chest stretch w/ arm held in back Manual Therapy Treatment Soft Tissue Mobilization Glut med, pirformis, ES, QL Body Location R Glut Med, Pirfomis, QL, L/S extensors. Mobilization Type Myofascial Release,Strumming, Sustained Pressure,Other Intensity/Depth Moderate Body Position Sidelying Comments Pillow between B LE PT-OP-T Assessment and Plan Start: 06/11/20 18:12 Freq: Status: Active Protocol: Document 06/26/20 09:46 LD (Rec: 06/26/20 12:03 LD [id number]) Physical Therapy Assessment Goals Four Impairment Poor posture in sitting and standing Short Term Goal (STG) Pt will demonstrate improved sitting posture knowledge by self correcting on request, and improved standing posture with less flexion at hips and knees (Initial: hip flexion 10 deg's, knee flexion 15 deg's) . STG Duration 07/20/20 Powerhouse Electrician Goal (LTG) Pt will demonstrate improve posture as noted by decrease vertical distance between C7 and L5 (Initial: 49 cm). LTG Duration 09/12/20 Three Impairment Decreased walking ability Short Term Goal (STG) Pt will be able to walk 10x in hallway without back brace without pain (Initial: pt must use back brace for no pain with walking 10x). STG Duration 07/20/20 Powerhouse Electrician Goal (LTG) Pt will be able to return to her prior function of walking 1.5 miles in the house in a day without back brace and without pain. (06/21/20: Pt walking 1/4 mile total in hallway with rests without pain, wearing back brace). LTG Duration 09/12/20 Two Impairment Low back pain rated 3/10 with activity/walking Short Term Goal (STG) Decrease low back pain to 1-2/ 10 with activity or walking. STG Duration 07/20/20 (06/21/20: Powerhouse Electrician Goal (LTG) Pt will have 0-1/10 back pain with walking and no pain with functional activities at home (able to stand for functional activities such as cooking). LTG Duration 09/12/20 One Impairment Lack of appropriate self care HEP. Short Term Goal (STG) Pt will be educated on a self care spinal extension program. STG Duration 07/06/20 Powerhouse Electrician Goal (LTG) Pt will be independent on a self care progressive core stablization program. LTG Duration 09/12/20 (06/21/20: Progressing) Progress Towards Goals Progress Towards Goals Progressing Toward Goals Assessment Summary Assessment Pt is responding well to her HEP. Added heel slide and bridge for focus on lumbar extension and core activation. Physical Therapy Plan Frequency and Duration Frequency of Treatment 2x/Week Plan of Care Start Date 06/14/20 Plan of Care End Date 09/12/20 Therapeutic Interventions Therapeutic Interventions Gait Training,Home Exercise Program,Joint Mobilizations, Manual Therapy,Neuromuscular Re-education,Patient/Caregiver Education,Self-Care/Home Management,Soft Tissue Mobilization,Therapeutic Exercises Modalities Cold Pack/Ice Massage,Electric Stimulation,Hot Packs, Ultrasound Next Visit Focus/Plan Next Note Type Treatment Note Next Visit Plan Assess repsonse to added bridge, heel slide and pec stretch. HEP review. Continue per PT POC: Continue lumbar ext strengthening (gentle trunk ext strengthening for compression fractures & postural stabilization exercises for spinal ext), Progress QL strengthening ex ( tailbone lift). Assess pt's sitting posture prior to cuing. Review proper sitting posture (uncross legs and support low back), STM: Lumbar paraspinals, manual pelvic rocking of sacrum. Add Stretches: Pecs. Progress towards improved endurance for walking without brace and pain. [ End ]
--- NOTE | 2020-06-28 16:57 | PT.OTN ---
Current Diagnoses Low back pain (06/28/20) Muscle weakness (generalized) (06/28/20) Other abnormalities of gait and mobility (06/28/20) Abnormal posture (06/28/20) Physical Therapy Treatment Note PT-OP-A Visit Information Start: 06/11/20 18:12 Freq: Status: Active Protocol: Document 06/28/20 09:52 LRN (Rec: 06/28/20 10:36 LRN [id number]) Out-Patient Physical Therapy Visit Information Visit Information Visit Type Treatment Note Visit Start Time 09:52 Visit Stop Time 10:33 Total Visit Minutes 41 Visit Number 5 Evaluation Information Evaluation Date 06/14/20 Precautions Precautions X-rays show Compression fx's L1, L2, L3 age indeterminate. Uncontrolled HBP Diabetes II PT-OP-B Current Condition Start: 06/11/20 18:12 Freq: Status: Active Protocol: Document 06/14/20 09:51 LRN (Rec: 06/14/20 11:35 LRN [id number]) Current Condition History of Current Condition Onset Date 05/24/20 Current Complaints Back pain once up and walking. Back brace helps when moving History of Current Condition States has happened once before in March 2020 and with walking, just got over it, and overdosed self on aspirin, without seeing physician. States this time doesn't know what she did to cause the pain. Currently has been wearing a back brace given by primary care physician when up and moving most of the time unless getting up to get water. Walking again, yesterday walked 4/10 of a mile over the course of the day. Prior Treatments and Tests Pt reports she was told X-rays show L1-L3 has compression fractions. Report 05/30/20 indicates: [id number] L1-L2 and L3 compression fractures, technically age indeterminate. Treatment Goals Patient/Caregiver Goals Pt goal with therapy is to get back walking up/down her hallway 30x (mile and half in the house), elminate back pain , return to prior level of functioin without back brace. Prior Functional Status Baseline Function- ADL's Independent Baseline Function- Mobility Independent Baseline Function- Gait Walked 3-4 miles a day. Current Functional Impairments (Reported) Functional Limitations- ADL's Back pain after 10 steps Functional Limitations- Mobility/Gait Hunched over in standing Not walking outside because too unstable. Walks inside 10x in hallway max. With brace on, no back pain; without brace has back pain. Functional Limitations- Other Refuses to take Opioids. Personal Factors Other Personal Factors That May Effect Lives alone, Diabetes II, Therapy/Recovery neuropathy, high blood pressure uncontrolled, fall history with last in 2013. PT-OP-C Subjective Start: 06/11/20 18:12 Freq: Status: Active Protocol: Document 06/28/20 09:52 LRN (Rec: 06/28/20 10:36 LRN [id number]) OP-PT Subjective Patient Comments Patient Comments States she is improving much faster than she does when she tries to get better on her own . Pt reports increasing her walking time to 10'. PT-OP-G Mobility & Gait Start: 06/11/20 18:12 Freq: Status: Active Protocol: Document 06/14/20 09:51 LRN (Rec: 06/14/20 11:35 LRN [id number]) OP Gait Assessment Gait Gait Assistance Required: Independent Able to Maintain Weight Bearing Status Yes During Gait Assistive Devices Assistive Device None Gait Deviations General Gait Pattern Wide Based Gait Factors Limiting Gait Function Factors Limiting Gait Function Decreased Activity Tolerance, Pain Comments Gait Comments Pt ambulates into therapy with notable forward bent posturing. PT-OP-H Neuro Start: 06/11/20 18:12 Freq: Status: Active Protocol: Document 06/14/20 09:51 LRN (Rec: 06/14/20 11:35 LRN [id number]) Sensation Evaluation Gross Sensation Gross Sensation WNL Comments Summary Comments Bottoms of feet not checked. PT-OP-J Posture/Palpation/Skin Start: 06/11/20 18:12 Freq: Status: Active Protocol: Document 06/14/20 09:51 LRN (Rec: 06/14/20 11:35 LRN [id number]) Posture Evaluation Position Sitting Evaluation View Anterior & lateral Head/C-Spine Posture Forward Head T-Spine Posture Increased Kyphosis L-Spine Posture Decreased Lordosis Shoulder Posture (L) Rounded,(R) Rounded,(L) Forward,(R) Forward Standing Evaluation View Anterior & Lateral Head/C-Spine Posture Forward Head T-Spine Posture Increased Kyphosis Shoulder Posture (L) Rounded,(R) Rounded,(L) Forward,(R) Forward Pelvis Posture Posterior Tilted,(R) PSIS Posterior,(L) PSIS Inferior Hip Posture (L) Flexed,(R) Flexed Knee Posture (L) Excess Flexion,(R) Excess Flexion Ankle/Foot Posture (L) Pronated,(R) Pronated Palpation Assessment Location L2 spinous process Palpation Location L2 spinous process with PA pressure Palpation Findings Tenderness Palpation Details No pain at transverse processes. No pain at levels of L1 & L3 of spinous process with PA pressure and at transverse processes. Low Back Palpation Location Sacral region and PSIS bilaterally Palpation Findings Tenderness PT-OP-K Range of Motion Start: 06/11/20 18:12 Freq: Status: Active Protocol: Document 06/14/20 09:51 LRN (Rec: 06/14/20 11:35 LRN [id number]) Lumbar Spine Range of Motion Lumbar Spine Active Degrees Testing Position Standing Flexion 100 Extension 10 Lateral Flexion Left 15 Lateral Flexion Right 10 ROM Limitations Pain Comments Trunk flex is with 90 deg's hip flexion (knees flexed) Trunk ext is with 10 deg's hip ext (knees flexed) PT-OP-M Strength Start: 06/11/20 18:12 Freq: Status: Active Protocol: Document 06/14/20 09:51 LRN (Rec: 06/14/20 11:35 LRN [id number]) Hip Strength Hip Manual Muscle Testing Right Flexion (L2) 3 Fair Abduction 5 Normal Adduction 5 Normal Left Flexion (L2) 3 Fair Abduction 5 Normal Adduction 5 Normal Knee Strength Knee Manual Muscle Testing Right Comments Generally 5/5 Left Comments Generally 5/5 Ankle/Foot Strength Ankle and Foot Manual Muscle Testing Left Dorsiflexion (L4) 3 Fair Plantarflexion (S1) 5 Normal Right Dorsiflexion (L4) 5 Normal Plantarflexion (S1) 5 Normal PT-OP-Q Treatments Start: 06/11/20 18:12 Freq: Status: Active Protocol: Document 06/28/20 09:52 LRN (Rec: 06/28/20 10:36 LRN [id number]) Therapeutic Exercises Supine Exercises Trunk ext Supine Exercise Name Hooklie: Hands press into table Side bilateral Reps/Minutes 2 sets: 10 hold x 10, Extra time for training proper positioning Comments V. & phys cuing throughout exercise. Bridge Supine Exercise Name Bridge with rolling up of back Comments Pt not able to maintain lumbar stab; so had pt roll as a starting point Core heel slide Supine Exercise Name TA with heel slides Side bilateral Reps/Minutes Until fatigue Sidelying Exercises lumbar ext Sidelying Exercise Name tail bone lift QL facilitation Side bilateral Reps/Minutes 10sec x 10 Standing Exercises Shoulder ext Standing Exercise Name Shoulder extension Reps/Minutes 2' Pec corner stretch Standing Exercise Name Pec stretch Equipment Used corner Reps/Minutes 2-3 for 15 Comments Pt arms fatigued, not able to maintain arms in position for stretch Self-Care/Home Management Treatment Education Patient Education Home Exercise Program Activities Self-Care/Home Management Activities Issued & reviewed HEP: Supine hand push (thoracic ext) and standing shoulder extension. Held standing end-range forward flexion. PT-OP-T Assessment and Plan Start: 06/11/20 18:12 Freq: Status: Active Protocol: Document 06/28/20 09:52 LRN (Rec: 06/28/20 10:36 LRN [id number]) Physical Therapy Assessment Goals Four Impairment Poor posture in sitting and standing Short Term Goal (STG) Pt will demonstrate improved sitting posture knowledge by self correcting on request, and improved standing posture with less flexion at hips and knees (Initial: hip flexion 10 deg's, knee flexion 15 deg's) . STG Duration 07/20/20 Block Out Machine Operator Goal (LTG) Pt will demonstrate improve posture as noted by decrease vertical distance between C7 and L5 (Initial: 49 cm). LTG Duration 09/12/20 Three Impairment Decreased walking ability Short Term Goal (STG) Pt will be able to walk 10x in hallway without back brace without pain (Initial: pt must use back brace for no pain with walking 10x). STG Duration 07/20/20 Mcfp Goal (LTG) Pt will be able to return to her prior function of walking 1.5 miles in the house in a day without back brace and without pain. (06/21/20: Pt walking 1/4 mile total in hallway with rests without pain, wearing back brace). LTG Duration 09/12/20 Two Impairment Low back pain rated 3/10 with activity/walking Short Term Goal (STG) Decrease low back pain to 1-2/ 10 with activity or walking. STG Duration 07/20/20 (06/21/20: Mcfp Goal (LTG) Pt will have 0-1/10 back pain with walking and no pain with functional activities at home (able to stand for functional activities such as cooking). LTG Duration 09/12/20 One Impairment Lack of appropriate self care HEP. Short Term Goal (STG) Pt will be educated on a self care spinal extension program. STG Duration 07/06/20 Mcfp Goal (LTG) Pt will be independent on a self care progressive core stablization program. LTG Duration 09/12/20 (06/28/20: Progressing) Assessment Summary Assessment + response to hand push/trunk ext exercise. Review of last session exercises was helpful. Pt was able to tolerate supine lying with head elevated, on big black plinth without complaints of spinal pain. Pt has better understanding of how to do thoracic extension. Physical Therapy Plan Frequency and Duration Frequency of Treatment 2x/Week Plan of Care Start Date 06/14/20 Plan of Care End Date 09/12/20 Next Visit Focus/Plan Next Note Type Treatment Note Next Visit Plan Assess response to added HEP of thoracic ext in supine & standing. Review bridging and put on hold if pt not able to bridge keeping lumbar lordosis. Stretch to hip flexors for upright posturing. Add hooklie, front chest opening stretch. Continue per PT POC: Assess pt's sitting posture prior to cuing. Review proper sitting posture (uncross legs and support low back), Continue lumbar ext strengthening (gentle trunk ext strengthening for compression fractures & postural stabilization exercises for spinal ext), Progress QL strengthening ex to sitting (tailbone lift). STM: Lumbar paraspinals, manual pelvic rocking of sacrum. Add Stretches: Progress towards improved endurance for walking without brace and pain. [ End ]
--- NOTE | 2020-07-03 10:36 | PT.OTN ---
Current Diagnoses Low back pain (07/03/20) Muscle weakness (generalized) (07/03/20) Other abnormalities of gait and mobility (07/03/20) Abnormal posture (07/03/20) Physical Therapy Treatment Note PT-OP-A Visit Information Start: 06/11/20 18:12 Freq: Status: Active Protocol: Document 07/03/20 09:47 LD (Rec: 07/03/20 13:45 LD [id number]) Out-Patient Physical Therapy Visit Information Visit Information Visit Type Treatment Note Visit Note CORTES Walter led tx w/ supervisionof IGOR Saeed. Visit Start Time 09:47 Visit Stop Time 10:36 Total Visit Minutes 49 Visit Number 6 Number of ENERGY AND SUSTAINABILITY MANAGER Visits 3 PT-OP-B Current Condition Start: 06/11/20 18:12 Freq: Status: Active Protocol: Document 06/14/20 09:51 LRN (Rec: 06/14/20 11:35 LRN [id number]) Current Condition History of Current Condition Onset Date 05/24/20 Current Complaints Back pain once up and walking. Back brace helps when moving History of Current Condition States has happened once before in March 2020 and with walking, just got over it, and overdosed self on aspirin, without seeing physician. States this time doesn't know what she did to cause the pain. Currently has been wearing a back brace given by primary care physician when up and moving most of the time unless getting up to get water. Walking again, yesterday walked 4/10 of a mile over the course of the day. Prior Treatments and Tests Pt reports she was told X-rays show L1-L3 has compression fractions. Report 05/30/20 indicates: [id number] L1-L2 and L3 compression fractures, technically age indeterminate. Treatment Goals Patient/Caregiver Goals Pt goal with therapy is to get back walking up/down her hallway 30x (mile and half in the house), elminate back pain , return to prior level of functioin without back brace. Prior Functional Status Baseline Function- ADL's Independent Baseline Function- Mobility Independent Baseline Function- Gait Walked 3-4 miles a day. Current Functional Impairments (Reported) Functional Limitations- ADL's Back pain after 10 steps Functional Limitations- Mobility/Gait Hunched over in standing Not walking outside because too unstable. Walks inside 10x in hallway max. With brace on, no back pain; without brace has back pain. Functional Limitations- Other Refuses to take Opioids. Personal Factors Other Personal Factors That May Effect Lives alone, Diabetes II, Therapy/Recovery neuropathy, high blood pressure uncontrolled, fall history with last in 2013. PT-OP-C Subjective Start: 06/11/20 18:12 Freq: Status: Active Protocol: Document 07/03/20 09:47 LD (Rec: 07/03/20 13:45 LD [id number]) OP-PT Subjective Patient Comments Patient Comments Pt reports that she is feeling better and standing more taller. Has been performing her HEP at home every day and wanting to review to be sure doing correctly. Patient Reported Progress Improving PT-OP-G Mobility & Gait Start: 06/11/20 18:12 Freq: Status: Active Protocol: Document 06/14/20 09:51 LRN (Rec: 06/14/20 11:35 LRN [id number]) OP Gait Assessment Gait Gait Assistance Required: Independent Able to Maintain Weight Bearing Status Yes During Gait Assistive Devices Assistive Device None Gait Deviations General Gait Pattern Wide Based Gait Factors Limiting Gait Function Factors Limiting Gait Function Decreased Activity Tolerance, Pain Comments Gait Comments Pt ambulates into therapy with notable forward bent posturing. PT-OP-H Neuro Start: 06/11/20 18:12 Freq: Status: Active Protocol: Document 06/14/20 09:51 LRN (Rec: 06/14/20 11:35 LRN [id number]) Sensation Evaluation Gross Sensation Gross Sensation WNL Comments Summary Comments Bottoms of feet not checked. PT-OP-J Posture/Palpation/Skin Start: 06/11/20 18:12 Freq: Status: Active Protocol: Document 06/14/20 09:51 LRN (Rec: 06/14/20 11:35 LRN [id number]) Posture Evaluation Position Sitting Evaluation View Anterior & lateral Head/C-Spine Posture Forward Head T-Spine Posture Increased Kyphosis L-Spine Posture Decreased Lordosis Shoulder Posture (L) Rounded,(R) Rounded,(L) Forward,(R) Forward Standing Evaluation View Anterior & Lateral Head/C-Spine Posture Forward Head T-Spine Posture Increased Kyphosis Shoulder Posture (L) Rounded,(R) Rounded,(L) Forward,(R) Forward Pelvis Posture Posterior Tilted,(R) PSIS Posterior,(L) PSIS Inferior Hip Posture (L) Flexed,(R) Flexed Knee Posture (L) Excess Flexion,(R) Excess Flexion Ankle/Foot Posture (L) Pronated,(R) Pronated Palpation Assessment Location L2 spinous process Palpation Location L2 spinous process with PA pressure Palpation Findings Tenderness Palpation Details No pain at transverse processes. No pain at levels of L1 & L3 of spinous process with PA pressure and at transverse processes. Low Back Palpation Location Sacral region and PSIS bilaterally Palpation Findings Tenderness PT-OP-K Range of Motion Start: 06/11/20 18:12 Freq: Status: Active Protocol: Document 06/14/20 09:51 LRN (Rec: 06/14/20 11:35 LRN [id number]) Lumbar Spine Range of Motion Lumbar Spine Active Degrees Testing Position Standing Flexion 100 Extension 10 Lateral Flexion Left 15 Lateral Flexion Right 10 ROM Limitations Pain Comments Trunk flex is with 90 deg's hip flexion (knees flexed) Trunk ext is with 10 deg's hip ext (knees flexed) PT-OP-M Strength Start: 06/11/20 18:12 Freq: Status: Active Protocol: Document 06/14/20 09:51 LRN (Rec: 06/14/20 11:35 LRN [id number]) Hip Strength Hip Manual Muscle Testing Right Flexion (L2) 3 Fair Abduction 5 Normal Adduction 5 Normal Left Flexion (L2) 3 Fair Abduction 5 Normal Adduction 5 Normal Knee Strength Knee Manual Muscle Testing Right Comments Generally 5/5 Left Comments Generally 5/5 Ankle/Foot Strength Ankle and Foot Manual Muscle Testing Left Dorsiflexion (L4) 3 Fair Plantarflexion (S1) 5 Normal Right Dorsiflexion (L4) 5 Normal Plantarflexion (S1) 5 Normal PT-OP-Q Treatments Start: 06/11/20 18:12 Freq: Status: Active Protocol: Document 07/03/20 09:47 LD (Rec: 07/03/20 13:45 LD [id number]) Therapeutic Exercises Supine Exercises Trunk ext Supine Exercise Name Hooklie: Hands press into table Side bilateral Reps/Minutes 2 sets: 10 hold x 10, Extra time for training proper positioning Comments V. & phys cuing throughout exercise for gentle ext 30-50% . Sidelying Exercises lumbar ext Sidelying Exercise Name tail bone lift QL facilitation Side bilateral Reps/Minutes 10sec x 10 Sitting Exercises Seated Trunk ext Sitting Exercise Name Trunk ext in proper sitting posture Equipment Used towel horizontal TS Reps/Minutes 10 x 10 with extra time for training Standing Exercises Shoulder ext Standing Exercise Name Shoulder extension Reps/Minutes 2' Comments cued scap retract/ depression stabilization Pec corner stretch Standing Exercise Name Pec stretch Equipment Used corner Reps/Minutes 2-3 for 15 Comments hands at neck level, CS chin tuck into neutral Iliopsoas stretch Standing Exercise Name Iliopsoas stretch (lunge stretch) Side bilateral Reps/Minutes 60 hold f/b 10 active stretches, extra time for training Comments Training for max tolerated stretch and proper positioning Therapeutic Activity Therapeutic Activity on /off floor supine HEP Name transfers to floor, supine towel roll along spine scap retraction relax pos Reps/Minutes 2 min Comments assess ability to get on/ off floor to lay spine over towel roll vertical and horizontal with good response. (next tx incorporate HEP in this position) PT-OP-T Assessment and Plan Start: 06/11/20 18:12 Freq: Status: Active Protocol: Document 07/03/20 09:47 LD (Rec: 07/03/20 13:45 LD [id number]) Physical Therapy Assessment Goals Four Impairment Poor posture in sitting and standing Short Term Goal (STG) Pt will demonstrate improved sitting posture knowledge by self correcting on request, and improved standing posture with less flexion at hips and knees (Initial: hip flexion 10 deg's, knee flexion 15 deg's) . STG Duration 07/20/20 Mcc Goal (LTG) Pt will demonstrate improve posture as noted by decrease vertical distance between C7 and L5 (Initial: 49 cm). LTG Duration 09/12/20 Three Impairment Decreased walking ability Short Term Goal (STG) Pt will be able to walk 10x in hallway without back brace without pain (Initial: pt must use back brace for no pain with walking 10x). STG Duration 07/20/20 Mcc Goal (LTG) Pt will be able to return to her prior function of walking 1.5 miles in the house in a day without back brace and without pain. (06/21/20: Pt walking 1/4 mile total in hallway with rests without pain, wearing back brace). LTG Duration 09/12/20 Two Impairment Low back pain rated 3/10 with activity/walking Short Term Goal (STG) Decrease low back pain to 1-2/ 10 with activity or walking. STG Duration 07/20/20 (06/21/20: Mcc Goal (LTG) Pt will have 0-1/10 back pain with walking and no pain with functional activities at home (able to stand for functional activities such as cooking). LTG Duration 09/12/20 One Impairment Lack of appropriate self care HEP. Short Term Goal (STG) Pt will be educated on a self care spinal extension program. STG Duration 07/06/20 Production Foreman Goal (LTG) Pt will be independent on a self care progressive core stablization program. LTG Duration 09/12/20 (06/28/20: Progressing) Assessment Summary Assessment Pt has a good understanding of her HEP. Pt was able to tolerate a towel roll along and horizontal on her spine, lying supine on [employer] mat floor, w/ cues given how to get on and off the mat, w/ no complaints of spinal pain. Pt inquired of floor mat used in tx for get for home [employer]. Physical Therapy Plan Frequency and Duration Frequency of Treatment 2x/Week Plan of Care Start Date 06/14/20 Plan of Care End Date 09/12/20 Therapeutic Interventions Therapeutic Interventions Gait Training,Home Exercise Program,Joint Mobilizations, Manual Therapy,Neuromuscular Re-education,Patient/Caregiver Education,Self-Care/Home Management,Soft Tissue Mobilization,Therapeutic Exercises Modalities Cold Pack/Ice Massage,Electric Stimulation,Hot Packs, Ultrasound Next Visit Focus/Plan Next Note Type Treatment Note Next Visit Plan Assess response to laying over towel roll on spine. HEP review. Continue reveiw HEP for proper form/ not over activate lumbar ext in supine floor mat and initiate QL strengthening in sitting and warm up on Treadmill next tx. Continue per PT POC: Progress strengthening when able ( gentle trunk ext strengthening for compression fractures & postural stabilization exercises for spinal ext), STM: Lumbar paraspinals, manual pelvic rocking of sacrum if needed. Add Stretches: Progress towards improved endurance for walking without brace and pain.
--- NOTE | 2020-07-05 11:48 | PT.OTN ---
Current Diagnoses Low back pain (07/05/20) Muscle weakness (generalized) (07/05/20) Other abnormalities of gait and mobility (07/05/20) Abnormal posture (07/05/20) Physical Therapy Treatment Note PT-OP-A Visit Information Start: 06/11/20 18:12 Freq: Status: Active Protocol: Document 07/05/20 10:38 LRN (Rec: 07/05/20 11:47 LRN [id number]) Out-Patient Physical Therapy Visit Information Visit Information Visit Type Treatment Note Visit Start Time 10:38 Visit Stop Time 11:25 Total Visit Minutes 47 Visit Number 7 Evaluation Information Evaluation Date 06/14/20 Precautions Precautions X-rays show Compression fx's L1, L2, L3 age indeterminate. Uncontrolled HBP Diabetes II PT-OP-B Current Condition Start: 06/11/20 18:12 Freq: Status: Active Protocol: Document 06/14/20 09:51 LRN (Rec: 06/14/20 11:35 LRN [id number]) Current Condition History of Current Condition Onset Date 05/24/20 Current Complaints Back pain once up and walking. Back brace helps when moving History of Current Condition States has happened once before in March 2020 and with walking, just got over it, and overdosed self on aspirin, without seeing physician. States this time doesn't know what she did to cause the pain. Currently has been wearing a back brace given by primary care physician when up and moving most of the time unless getting up to get water. Walking again, yesterday walked 4/10 of a mile over the course of the day. Prior Treatments and Tests Pt reports she was told X-rays show L1-L3 has compression fractions. Report 05/30/20 indicates: [id number] L1-L2 and L3 compression fractures, technically age indeterminate. Treatment Goals Patient/Caregiver Goals Pt goal with therapy is to get back walking up/down her hallway 30x (mile and half in the house), elminate back pain , return to prior level of functioin without back brace. Prior Functional Status Baseline Function- ADL's Independent Baseline Function- Mobility Independent Baseline Function- Gait Walked 3-4 miles a day. Current Functional Impairments (Reported) Functional Limitations- ADL's Back pain after 10 steps Functional Limitations- Mobility/Gait Hunched over in standing Not walking outside because too unstable. Walks inside 10x in hallway max. With brace on, no back pain; without brace has back pain. Functional Limitations- Other Refuses to take Opioids. Personal Factors Other Personal Factors That May Effect Lives alone, Diabetes II, Therapy/Recovery neuropathy, high blood pressure uncontrolled, fall history with last in 2013. PT-OP-C Subjective Start: 06/11/20 18:12 Freq: Status: Active Protocol: Document 07/05/20 10:38 LRN (Rec: 07/05/20 11:47 LRN [id number]) OP-PT Subjective Patient Comments Patient Comments States at end of day she has pain in the R low back. Asks what she can do about it. States she is walking 1 mile ( taking 10 minutes) in home, several times a day, PT-OP-G Mobility & Gait Start: 06/11/20 18:12 Freq: Status: Active Protocol: Document 06/14/20 09:51 LRN (Rec: 06/14/20 11:35 LRN [id number]) OP Gait Assessment Gait Gait Assistance Required: Independent Able to Maintain Weight Bearing Status Yes During Gait Assistive Devices Assistive Device None Gait Deviations General Gait Pattern Wide Based Gait Factors Limiting Gait Function Factors Limiting Gait Function Decreased Activity Tolerance, Pain Comments Gait Comments Pt ambulates into therapy with notable forward bent posturing. PT-OP-H Neuro Start: 06/11/20 18:12 Freq: Status: Active Protocol: Document 06/14/20 09:51 LRN (Rec: 06/14/20 11:35 LRN [id number]) Sensation Evaluation Gross Sensation Gross Sensation WNL Comments Summary Comments Bottoms of feet not checked. PT-OP-J Posture/Palpation/Skin Start: 06/11/20 18:12 Freq: Status: Active Protocol: Document 06/14/20 09:51 LRN (Rec: 06/14/20 11:35 LRN [id number]) Posture Evaluation Position Sitting Evaluation View Anterior & lateral Head/C-Spine Posture Forward Head T-Spine Posture Increased Kyphosis L-Spine Posture Decreased Lordosis Shoulder Posture (L) Rounded,(R) Rounded,(L) Forward,(R) Forward Standing Evaluation View Anterior & Lateral Head/C-Spine Posture Forward Head T-Spine Posture Increased Kyphosis Shoulder Posture (L) Rounded,(R) Rounded,(L) Forward,(R) Forward Pelvis Posture Posterior Tilted,(R) PSIS Posterior,(L) PSIS Inferior Hip Posture (L) Flexed,(R) Flexed Knee Posture (L) Excess Flexion,(R) Excess Flexion Ankle/Foot Posture (L) Pronated,(R) Pronated Palpation Assessment Location L2 spinous process Palpation Location L2 spinous process with PA pressure Palpation Findings Tenderness Palpation Details No pain at transverse processes. No pain at levels of L1 & L3 of spinous process with PA pressure and at transverse processes. Low Back Palpation Location Sacral region and PSIS bilaterally Palpation Findings Tenderness PT-OP-K Range of Motion Start: 06/11/20 18:12 Freq: Status: Active Protocol: Document 06/14/20 09:51 LRN (Rec: 06/14/20 11:35 LRN [id number]) Lumbar Spine Range of Motion Lumbar Spine Active Degrees Testing Position Standing Flexion 100 Extension 10 Lateral Flexion Left 15 Lateral Flexion Right 10 ROM Limitations Pain Comments Trunk flex is with 90 deg's hip flexion (knees flexed) Trunk ext is with 10 deg's hip ext (knees flexed) PT-OP-M Strength Start: 06/11/20 18:12 Freq: Status: Active Protocol: Document 06/14/20 09:51 LRN (Rec: 06/14/20 11:35 LRN [id number]) Hip Strength Hip Manual Muscle Testing Right Flexion (L2) 3 Fair Abduction 5 Normal Adduction 5 Normal Left Flexion (L2) 3 Fair Abduction 5 Normal Adduction 5 Normal Knee Strength Knee Manual Muscle Testing Right Comments Generally 5/5 Left Comments Generally 5/5 Ankle/Foot Strength Ankle and Foot Manual Muscle Testing Left Dorsiflexion (L4) 3 Fair Plantarflexion (S1) 5 Normal Right Dorsiflexion (L4) 5 Normal Plantarflexion (S1) 5 Normal PT-OP-Q Treatments Start: 06/11/20 18:12 Freq: Status: Active Protocol: Document 07/05/20 10:38 LRN (Rec: 07/05/20 11:47 LRN [id number]) Therapeutic Exercises Supine Exercises Lying on towel roll Supine Exercise Name Pec stretch f/b active scapular pinches Reps/Minutes 6' Comments Extra time for proper positioning each time Trunk ext Supine Exercise Name Hooklie: Elbow/Hands press into table Side bilateral Reps/Minutes 2 sets: 10 hold x 10, Extra time for training proper positioning Comments V. & phys cuing throughout exercise for gentle ext 30-50% . Sidelying Exercises lumbar ext Sidelying Exercise Name tail bone lift QL facilitation, position btn 2 sheets of glass Side bilateral Reps/Minutes 10sec x 10 Comments Extra time to correct ex posture Sitting Exercises Seated Trunk ext Sitting Exercise Name Scapular pinches in proper sitting posture Equipment Used towel horizontal TS, Lev 1 TB Reps/Minutes 10 x 10 with extra time for training Standing Exercises Iliopsoas stretch Standing Exercise Name Iliopsoas stretch f/b active hip ext Side bilateral Reps/Minutes 60 hold f/b 10 active stretches via pelvic tilts and hip ext Comments Extra time for proper positioning & teaching active stretch. Self-Care/Home Management Treatment Education Patient Education Home Exercise Program,Pain Management Caregiver Education Discussed options of care for managing pain in evening. Other Education Issued & reviewed HEP & Lev 1 TB: Supine: Anter trunk stretch Trunk Ext-Elbow dig Sitting: Scap pinches w/TB PT-OP-T Assessment and Plan Start: 06/11/20 18:12 Freq: Status: Active Protocol: Document 07/05/20 10:38 LRN (Rec: 07/05/20 11:47 LRN [id number]) Physical Therapy Assessment Goals Four Impairment Poor posture in sitting and standing Short Term Goal (STG) Pt will demonstrate improved sitting posture knowledge by self correcting on request, and improved standing posture with less flexion at hips and knees (Initial: hip flexion 10 deg's, knee flexion 15 deg's) . STG Duration 07/20/20 Locator Specialist Goal (LTG) Pt will demonstrate improve posture as noted by decrease vertical distance between C7 and L5 (Initial: 49 cm). LTG Duration 09/12/20 Three Impairment Decreased walking ability Short Term Goal (STG) Pt will be able to walk 10x in hallway without back brace without pain (Initial: pt must use back brace for no pain with walking 10x). STG Duration 07/20/20 Nursing Home Goal (LTG) Pt will be able to return to her prior function of walking 1.5 miles in the house in a day without back brace and without pain. (06/21/20: Pt walking 1/4 mile total in hallway with rests without pain, wearing back brace). LTG Duration 09/12/20 Two Impairment Low back pain rated 3/10 with activity/walking Short Term Goal (STG) Decrease low back pain to 1-2/ 10 with activity or walking. STG Duration 07/20/20 (06/21/20: Locator Specialist Goal (LTG) Pt will have 0-1/10 back pain with walking and no pain with functional activities at home (able to stand for functional activities such as cooking). LTG Duration 09/12/20 One Impairment Lack of appropriate self care HEP. Short Term Goal (STG) Pt will be educated on a self care spinal extension program. (07/05/20: Added to HEP: SUPINE: anter chest stretch and elbow dig for spinal ext; SITTING: Scap retract w/TB) STG Duration 07/06/20 (07/05/20: Progressing) Locator Specialist Goal (LTG) Pt will be independent on a self care progressive core stablization program. LTG Duration 09/12/20 (06/28/20: Progressing) Assessment Summary Assessment Good tolerance to supine on towel roll for anterior chest stretching. Pt having difficulty holding erect posture; therefore withheld use of TM. Pt might repond better to active walking around clinic until loss of more neutral posturing begins. Iliopsoas active stretch best with Gluteal set vs posterior pelvic tilt. Pt gluteals atrophied. Pt ability to get on/off floor is very difficult at this time; therefore pt will continue supine lying stretch on bed with removal of pillow support height as tolerated. Physical Therapy Plan Frequency and Duration Frequency of Treatment 2x/Week Plan of Care Start Date 06/14/20 Plan of Care End Date 09/12/20 Next Visit Focus/Plan Next Note Type Treatment Note Next Visit Plan HEP review. Continue review HEP for proper form/not over activate lumbar ext. Check progress to goal #3 & #4 . Initiate QL strengthening in sitting. Try walking warm up (monitor pain-goal #2) in clinic until loss of posture begins. Continue per PT POC: Progress strengthening when able ( gentle trunk ext strengthening for compression fractures & postural stabilization exercises for spinal ext), STM: Lumbar paraspinals, manual pelvic rocking of sacrum if needed. Add Manual STM to Iliopsoas to improve hip ext mobility and glut strength. Progress towards improved endurance for walking without brace and pain.
--- NOTE | 2020-07-10 11:18 | PT.OTN ---
Current Diagnoses Low back pain (07/10/20) Muscle weakness (generalized) (07/10/20) Other abnormalities of gait and mobility (07/10/20) Abnormal posture (07/10/20) Physical Therapy Treatment Note PT-OP-A Visit Information Start: 06/11/20 18:12 Freq: Status: Active Protocol: Document 07/10/20 10:35 SP (Rec: 07/10/20 11:30 SP [id number]) Out-Patient Physical Therapy Visit Information Visit Information Visit Type Treatment Note Visit Note SPTA attended tx and assist Visit Start Time 10:35 Visit Stop Time 11:18 Total Visit Minutes 42 Visit Number 8 Number of STEMHOLE BORER AND TOPPER Visits 1 PT-OP-B Current Condition Start: 06/11/20 18:12 Freq: Status: Active Protocol: Document 06/14/20 09:51 LRN (Rec: 06/14/20 11:35 LRN [id number]) Current Condition History of Current Condition Onset Date 05/24/20 Current Complaints Back pain once up and walking. Back brace helps when moving History of Current Condition States has happened once before in March 2020 and with walking, just got over it, and overdosed self on aspirin, without seeing physician. States this time doesn't know what she did to cause the pain. Currently has been wearing a back brace given by primary care physician when up and moving most of the time unless getting up to get water. Walking again, yesterday walked 4/10 of a mile over the course of the day. Prior Treatments and Tests Pt reports she was told X-rays show L1-L3 has compression fractions. Report 05/30/20 indicates: [id number] L1-L2 and L3 compression fractures, technically age indeterminate. Treatment Goals Patient/Caregiver Goals Pt goal with therapy is to get back walking up/down her hallway 30x (mile and half in the house), elminate back pain , return to prior level of functioin without back brace. Prior Functional Status Baseline Function- ADL's Independent Baseline Function- Mobility Independent Baseline Function- Gait Walked 3-4 miles a day. Current Functional Impairments (Reported) Functional Limitations- ADL's Back pain after 10 steps Functional Limitations- Mobility/Gait Hunched over in standing Not walking outside because too unstable. Walks inside 10x in hallway max. With brace on, no back pain; without brace has back pain. Functional Limitations- Other Refuses to take Opioids. Personal Factors Other Personal Factors That May Effect Lives alone, Diabetes II, Therapy/Recovery neuropathy, high blood pressure uncontrolled, fall history with last in 2013. PT-OP-C Subjective Start: 06/11/20 18:12 Freq: Status: Active Protocol: Document 07/10/20 10:35 SP (Rec: 07/10/20 11:30 SP [id number]) OP-PT Subjective Patient Comments Patient Comments Pt stated is able to shower without needing stop 1/2 way, muscles loosening up but when start walking hard to maintain . Her low back huring more today, stated maybe because was standing for approx and hour cooking a big batch of food. Needed to lay down for 20 min and went away. Patient Reported Progress Improving PT-OP-G Mobility & Gait Start: 06/11/20 18:12 Freq: Status: Active Protocol: Document 06/14/20 09:51 LRN (Rec: 06/14/20 11:35 LRN [id number]) OP Gait Assessment Gait Gait Assistance Required: Independent Able to Maintain Weight Bearing Status Yes During Gait Assistive Devices Assistive Device None Gait Deviations General Gait Pattern Wide Based Gait Factors Limiting Gait Function Factors Limiting Gait Function Decreased Activity Tolerance, Pain Comments Gait Comments Pt ambulates into therapy with notable forward bent posturing. PT-OP-H Neuro Start: 06/11/20 18:12 Freq: Status: Active Protocol: Document 06/14/20 09:51 LRN (Rec: 06/14/20 11:35 LRN [id number]) Sensation Evaluation Gross Sensation Gross Sensation WNL Comments Summary Comments Bottoms of feet not checked. PT-OP-J Posture/Palpation/Skin Start: 06/11/20 18:12 Freq: Status: Active Protocol: Document 06/14/20 09:51 LRN (Rec: 06/14/20 11:35 LRN [id number]) Posture Evaluation Position Sitting Evaluation View Anterior & lateral Head/C-Spine Posture Forward Head T-Spine Posture Increased Kyphosis L-Spine Posture Decreased Lordosis Shoulder Posture (L) Rounded,(R) Rounded,(L) Forward,(R) Forward Standing Evaluation View Anterior & Lateral Head/C-Spine Posture Forward Head T-Spine Posture Increased Kyphosis Shoulder Posture (L) Rounded,(R) Rounded,(L) Forward,(R) Forward Pelvis Posture Posterior Tilted,(R) PSIS Posterior,(L) PSIS Inferior Hip Posture (L) Flexed,(R) Flexed Knee Posture (L) Excess Flexion,(R) Excess Flexion Ankle/Foot Posture (L) Pronated,(R) Pronated Palpation Assessment Location L2 spinous process Palpation Location L2 spinous process with PA pressure Palpation Findings Tenderness Palpation Details No pain at transverse processes. No pain at levels of L1 & L3 of spinous process with PA pressure and at transverse processes. Low Back Palpation Location Sacral region and PSIS bilaterally Palpation Findings Tenderness PT-OP-K Range of Motion Start: 06/11/20 18:12 Freq: Status: Active Protocol: Document 06/14/20 09:51 LRN (Rec: 06/14/20 11:35 LRN [id number]) Lumbar Spine Range of Motion Lumbar Spine Active Degrees Testing Position Standing Flexion 100 Extension 10 Lateral Flexion Left 15 Lateral Flexion Right 10 ROM Limitations Pain Comments Trunk flex is with 90 deg's hip flexion (knees flexed) Trunk ext is with 10 deg's hip ext (knees flexed) PT-OP-M Strength Start: 06/11/20 18:12 Freq: Status: Active Protocol: Document 06/14/20 09:51 LRN (Rec: 06/14/20 11:35 LRN [id number]) Hip Strength Hip Manual Muscle Testing Right Flexion (L2) 3 Fair Abduction 5 Normal Adduction 5 Normal Left Flexion (L2) 3 Fair Abduction 5 Normal Adduction 5 Normal Knee Strength Knee Manual Muscle Testing Right Comments Generally 5/5 Left Comments Generally 5/5 Ankle/Foot Strength Ankle and Foot Manual Muscle Testing Left Dorsiflexion (L4) 3 Fair Plantarflexion (S1) 5 Normal Right Dorsiflexion (L4) 5 Normal Plantarflexion (S1) 5 Normal PT-OP-Q Treatments Start: 06/11/20 18:12 Freq: Status: Active Protocol: Document 07/10/20 10:35 SP (Rec: 07/10/20 11:30 SP [id number]) Therapeutic Exercises Supine Exercises Lying on towel roll Supine Exercise Name Pec stretch f/b active scapular pinches Reps/Minutes 6' Comments Extra time for proper positioning each time Trunk ext Supine Exercise Name Hooklie: Elbow/Hands press into table Side bilateral Reps/Minutes 2 sets: 10 hold x 10, Extra time for training proper positioning Comments V. & phys cuing throughout exercise for gentle ext 30-50% . Prone Exercises quadruped cat stretch Prone Exercise Name LS ext (PT only) Reps/Minutes x5 Comments max cuing for chin tuck and CS ext- challenging Sidelying Exercises lumbar ext Sidelying Exercise Name tail bone lift QL facilitation, position btn 2 sheets of glass Side bilateral Reps/Minutes 10sec x 10 Comments Extra time to correct ex posture Manual Therapy Treatment Soft Tissue Mobilization Glut med, pirformis, ES, QL Body Location R Glut Med, Pirfomis, QL, L/S extensors. Mobilization Type Myofascial Release,Strumming, Sustained Pressure,Other Intensity/Depth Moderate Body Position Prone Comments Pillow under pelvis and chest PT-OP-T Assessment and Plan Start: 06/11/20 18:12 Freq: Status: Active Protocol: Document 07/10/20 10:35 SP (Rec: 07/10/20 11:30 SP [id number]) Physical Therapy Assessment Goals Four Impairment Poor posture in sitting and standing Short Term Goal (STG) Pt will demonstrate improved sitting posture knowledge by self correcting on request, and improved standing posture with less flexion at hips and knees (Initial: hip flexion 10 deg's, knee flexion 15 deg's) . STG Duration 07/20/20 Head Greenskeeper Goal (LTG) Pt will demonstrate improve posture as noted by decrease vertical distance between C7 and L5- 49 cm initial. (07/10/20 51> 50cm). LTG Duration 09/12/20 Three Impairment Decreased walking ability Short Term Goal (STG) Pt will be able to walk 10x in hallway without back brace without pain (Initial: pt must use back brace for no pain with walking 10x). 07/10/20: is walking in hallway approx 1 mile in her house but does have pain by end- ask laps for assessment nex tx. STG Duration 07/20/20 Head Greenskeeper Goal (LTG) Pt will be able to return to her prior function of walking 1.5 miles in the house in a day without back brace and without pain. (06/21/20: Pt walking 1/4 mile total in hallway with rests without pain, wearing back brace). LTG Duration 09/12/20 Two Impairment Low back pain rated 3/10 with activity/walking Short Term Goal (STG) Decrease low back pain to 1-2/ 10 with activity or walking. 07/10/20: pain upon arrival, decreased with manual, back to same post ex and walking. STG Duration 07/20/20 (06/21/20: Head Greenskeeper Goal (LTG) Pt will have 0-1/10 back pain with walking and no pain with functional activities at home (able to stand for functional activities such as cooking). LTG Duration 09/12/20 One Impairment Lack of appropriate self care HEP. Short Term Goal (STG) Pt will be educated on a self care spinal extension program. (07/05/20: Added to HEP: SUPINE: anter chest stretch and elbow dig for spinal ext; SITTING: Scap retract w/TB) STG Duration 07/06/20 (07/05/20: Progressing) Head Greenskeeper Goal (LTG) Pt will be independent on a self care progressive core stablization program. LTG Duration 09/12/20 (06/28/20: Progressing) Assessment Summary Assessment Pt reported decreased pain and muscles more relaxed post manual. Reviewed HEP with LS ext focus and elongated TS posture supine over towel roll and standing with awareness not hip extending and knee flexion. Pt improved posture C7-L5 51 cm to 50 cm during tx . initiated quad cat stretch, challenged with maintaining head/ CS ext so only perform in PT. Physical Therapy Plan Frequency and Duration Frequency of Treatment 2x/Week Plan of Care Start Date 06/14/20 Plan of Care End Date 09/12/20 Therapeutic Interventions Therapeutic Interventions Gait Training,Home Exercise Program,Joint Mobilizations, Manual Therapy,Neuromuscular Re-education,Patient/Caregiver Education,Self-Care/Home Management,Soft Tissue Mobilization,Therapeutic Exercises Modalities Cold Pack/Ice Massage,Electric Stimulation,Hot Packs, Ultrasound Next Visit Focus/Plan Next Note Type Treatment Note Next Visit Plan Assess last tx: HEP review, quadruped cat stretch, supine OH dowel. Continue review HEP for proper form/not over activate lumbar ext. Check progress to goal #3 & #4 - update progress. Initiate QL strengthening in sitting. Try walking warm up clinic until loss of posture begins if tolerates. Continue per PT POC: Progress strengthening when able ( gentle trunk ext strengthening for compression fractures & postural stabilization exercises for spinal ext), STM: Lumbar paraspinals, manual pelvic rocking of sacrum if needed. Add Manual STM to Iliopsoas to improve hip ext mobility and glut strength. Progress towards improved endurance for walking without brace and pain.
--- NOTE | 2020-07-12 17:22 | PT.OTN ---
Current Diagnoses Low back pain (07/12/20) Muscle weakness (generalized) (07/12/20) Other abnormalities of gait and mobility (07/12/20) Abnormal posture (07/12/20) Physical Therapy Treatment Note PT-OP-A Visit Information Start: 06/11/20 18:12 Freq: Status: Active Protocol: Document 07/12/20 09:52 LRN (Rec: 07/12/20 10:37 LRN [id number]) Out-Patient Physical Therapy Visit Information Visit Information Visit Type Treatment Note Visit Start Time 09:52 Visit Stop Time 10:35 Total Visit Minutes 43 Visit Number 9 Evaluation Information Evaluation Date 06/14/20 Precautions Precautions X-rays show Compression fx's L1, L2, L3 age indeterminate. Uncontrolled HBP Diabetes II PT-OP-B Current Condition Start: 06/11/20 18:12 Freq: Status: Active Protocol: Document 06/14/20 09:51 LRN (Rec: 06/14/20 11:35 LRN [id number]) Current Condition History of Current Condition Onset Date 05/24/20 Current Complaints Back pain once up and walking. Back brace helps when moving History of Current Condition States has happened once before in March 2020 and with walking, just got over it, and overdosed self on aspirin, without seeing physician. States this time doesn't know what she did to cause the pain. Currently has been wearing a back brace given by primary care physician when up and moving most of the time unless getting up to get water. Walking again, yesterday walked 4/10 of a mile over the course of the day. Prior Treatments and Tests Pt reports she was told X-rays show L1-L3 has compression fractions. Report 05/30/20 indicates: [id number] L1-L2 and L3 compression fractures, technically age indeterminate. Treatment Goals Patient/Caregiver Goals Pt goal with therapy is to get back walking up/down her hallway 30x (mile and half in the house), elminate back pain , return to prior level of functioin without back brace. Prior Functional Status Baseline Function- ADL's Independent Baseline Function- Mobility Independent Baseline Function- Gait Walked 3-4 miles a day. Current Functional Impairments (Reported) Functional Limitations- ADL's Back pain after 10 steps Functional Limitations- Mobility/Gait Hunched over in standing Not walking outside because too unstable. Walks inside 10x in hallway max. With brace on, no back pain; without brace has back pain. Functional Limitations- Other Refuses to take Opioids. Personal Factors Other Personal Factors That May Effect Lives alone, Diabetes II, Therapy/Recovery neuropathy, high blood pressure uncontrolled, fall history with last in 2013. PT-OP-C Subjective Start: 06/11/20 18:12 Freq: Status: Active Protocol: Document 07/12/20 09:52 LRN (Rec: 07/12/20 10:37 LRN [id number]) OP-PT Subjective Patient Comments Patient Comments Pain only across the LB. Can shower all at once now, although it is very taxing. Then feeds her dog and cats, then needs to lie back down. PT-OP-G Mobility & Gait Start: 06/11/20 18:12 Freq: Status: Active Protocol: Document 06/14/20 09:51 LRN (Rec: 06/14/20 11:35 LRN [id number]) OP Gait Assessment Gait Gait Assistance Required: Independent Able to Maintain Weight Bearing Status Yes During Gait Assistive Devices Assistive Device None Gait Deviations General Gait Pattern Wide Based Gait Factors Limiting Gait Function Factors Limiting Gait Function Decreased Activity Tolerance, Pain Comments Gait Comments Pt ambulates into therapy with notable forward bent posturing. PT-OP-H Neuro Start: 06/11/20 18:12 Freq: Status: Active Protocol: Document 06/14/20 09:51 LRN (Rec: 06/14/20 11:35 LRN [id number]) Sensation Evaluation Gross Sensation Gross Sensation WNL Comments Summary Comments Bottoms of feet not checked. PT-OP-J Posture/Palpation/Skin Start: 06/11/20 18:12 Freq: Status: Active Protocol: Document 07/12/20 09:52 LRN (Rec: 07/12/20 17:04 LRN [id number]) Posture Evaluation Comments Posture Comments Standing: Hip flexion is 5 deg's PT-OP-K Range of Motion Start: 06/11/20 18:12 Freq: Status: Active Protocol: Document 06/14/20 09:51 LRN (Rec: 06/14/20 11:35 LRN [id number]) Lumbar Spine Range of Motion Lumbar Spine Active Degrees Testing Position Standing Flexion 100 Extension 10 Lateral Flexion Left 15 Lateral Flexion Right 10 ROM Limitations Pain Comments Trunk flex is with 90 deg's hip flexion (knees flexed) Trunk ext is with 10 deg's hip ext (knees flexed) PT-OP-M Strength Start: 06/11/20 18:12 Freq: Status: Active Protocol: Document 06/14/20 09:51 LRN (Rec: 06/14/20 11:35 LRN [id number]) Hip Strength Hip Manual Muscle Testing Right Flexion (L2) 3 Fair Abduction 5 Normal Adduction 5 Normal Left Flexion (L2) 3 Fair Abduction 5 Normal Adduction 5 Normal Knee Strength Knee Manual Muscle Testing Right Comments Generally 5/5 Left Comments Generally 5/5 Ankle/Foot Strength Ankle and Foot Manual Muscle Testing Left Dorsiflexion (L4) 3 Fair Plantarflexion (S1) 5 Normal Right Dorsiflexion (L4) 5 Normal Plantarflexion (S1) 5 Normal PT-OP-Q Treatments Start: 06/11/20 18:12 Freq: Status: Active Protocol: Document 07/12/20 09:52 LRN (Rec: 07/12/20 10:37 LRN [id number]) Therapeutic Exercises Supine Exercises Trunk ext-Hands press Supine Exercise Name Trunk ext w/Hand press & cycling btn elbow press Reps/Minutes 12' Comments Excessive training needed for proper awareness of trunk extensors. Shoulder max flex press Supine Exercise Name Shoulder Max Flex Estiven Press Side bilateral Reps/Minutes 4' Comments DC'd after 4', Pt not able to perform correctly Lying on towel roll Supine Exercise Name Pec/Hip ER stretch f/b active stretch (scapular pinch, hip ER, trunk ext) Reps/Minutes 2 sets Comments Extra time for proper positioning each time Trunk ext Supine Exercise Name Hooklie: Elbow/Hands press into table Side bilateral Reps/Minutes 2 sets: 5 hold x 15, Extra time for training proper positioning Comments V. & phys cuing for gentle ext 30-50% . Manual Therapy Treatment Soft Tissue Mobilization QL Body Location Bilateral QL Mobilization Type Strumming Intensity/Depth Moderate Body Position Sitting Comments + response with lessening of LBP. Self-Care/Home Management Treatment Education Patient Education Body Mechanics,Home Exercise Program Other Education Educated and practiced at length: proper body mechanics for transfers: Supine <> Sit, Sit <> Stand. Activities Self-Care/Home Management Activities Modified current HEP: Supine stretch in hoolie: Hips in ER and arms out to sides in AB. Elbow press: Changed to Hands press with arms straight. PT-OP-T Assessment and Plan Start: 06/11/20 18:12 Freq: Status: Active Protocol: Document 07/12/20 09:52 LRN (Rec: 07/12/20 10:37 LRN [id number]) Physical Therapy Assessment Goals Four Impairment Poor posture in sitting and standing Short Term Goal (STG) Pt will demonstrate improved sitting posture knowledge by self correcting on request, and improved standing posture with less flexion at hips and knees (Initial: hip flexion 10 deg's, knee flexion 15 deg's) . (07/12/20: Hip flex is 5 deg's ) STG Duration 07/20/20 Half-Way Goal (LTG) Pt will demonstrate improve posture as noted by decrease vertical distance between C7 and L5- 49 cm initial. (07/10/20 51> 50cm). LTG Duration 09/12/20 Three Impairment Decreased walking ability Short Term Goal (STG) Pt will be able to walk 10x in hallway without back brace without pain (Initial: pt must use back brace for no pain with walking 10x). 07/10/20: is walking in hallway approx 1 mile in her house but does have pain by end- ask laps for assessment nex tx. STG Duration 07/20/20 Special Equipment Technician Goal (LTG) Pt will be able to return to her prior function of walking 1.5 miles in the house in a day without back brace and without pain. (06/21/20: Pt walking 1/4 mile total in hallway with rests without pain, wearing back brace). LTG Duration 09/12/20 Two Impairment Low back pain rated 3/10 with activity/walking Short Term Goal (STG) Decrease low back pain to 1-2/ 10 with activity or walking. 07/10/20: pain upon arrival, decreased with manual, back to same post ex and walking. STG Duration 07/20/20 (06/21/20: Special Equipment Technician Goal (LTG) Pt will have 0-1/10 back pain with walking and no pain with functional activities at home (able to stand for functional activities such as cooking). LTG Duration 09/12/20 One Impairment Lack of appropriate self care HEP. Short Term Goal (STG) Pt will be educated on a self care spinal extension program. (07/05/20: Added to HEP: SUPINE: anter chest stretch and elbow dig for spinal ext; SITTING: Scap retract w/TB) STG Duration 07/06/20 (07/05/20: Progressing) Special Equipment Technician Goal (LTG) Pt will be independent on a self care progressive core stablization program. LTG Duration 09/12/20 (06/28/20: Progressing) Progress Towards Goals Progress Comments Improved posture: Standing hip flex is 5 deg's (initially was 10 deg's) Assessment Summary Assessment Pt able to perform transfers without back pain after much training and cuing (phys and verbal to keep anterior pelvic tilt). Pt needed further training for T/S & L/S ext in quadruped. Supine OH dowel caused L shoulder pain; therefore had to provide support to arms in overhead position. Pt not able to perform proper spinal ext yet; therefore held exercise. Physical Therapy Plan Frequency and Duration Frequency of Treatment 2x/Week Plan of Care Start Date 06/14/20 Plan of Care End Date 09/12/20 Next Visit Focus/Plan Next Note Type Treatment Note Next Visit Plan Remeasure standing (goal #3): hip/knee flex & C7 to L5 for improvement with posture. Try walking warm up clinic until loss of posture begins and note pain (start to end). Review prone partial press ups . Continue review HEP for proper form/not over activate lumbar ext. & encourage T/S ext. Increase focus on Pec stretch. Check progress to goal #4: update progress. Initiate QL strengthening in sitting. Continue per PT POC: Progress strengthening when able ( gentle trunk ext strengthening for compression fractures & postural stabilization exercises for spinal ext), STM: Lumbar paraspinals, manual pelvic rocking of sacrum if needed. Add Manual STM to Iliopsoas to improve hip ext mobility and glut strength. Progress towards improved endurance for walking without brace and pain.
--- NOTE | 2020-07-19 13:31 | PT.OTN ---
Current Diagnoses Low back pain (07/19/20) Muscle weakness (generalized) (07/19/20) Other abnormalities of gait and mobility (07/19/20) Abnormal posture (07/19/20) Physical Therapy Treatment Note PT-OP-A Visit Information Start: 06/11/20 18:12 Freq: Status: Active Protocol: Document 07/19/20 10:35 LRN (Rec: 07/19/20 11:19 LRN [id number]) Out-Patient Physical Therapy Visit Information Visit Information Visit Type Progress Note Visit Start Time 10:35 Visit Stop Time 11:15 Total Visit Minutes 40 Visit Number 10 Evaluation Information Evaluation Date 06/14/20 Precautions Precautions X-rays show Compression fx's L1, L2, L3 age indeterminate. Uncontrolled HBP Diabetes II PT-OP-B Current Condition Start: 06/11/20 18:12 Freq: Status: Active Protocol: Document 06/14/20 09:51 LRN (Rec: 06/14/20 11:35 LRN [id number]) Current Condition History of Current Condition Onset Date 05/24/20 Current Complaints Back pain once up and walking. Back brace helps when moving History of Current Condition States has happened once before in March 2020 and with walking, just got over it, and overdosed self on aspirin, without seeing physician. States this time doesn't know what she did to cause the pain. Currently has been wearing a back brace given by primary care physician when up and moving most of the time unless getting up to get water. Walking again, yesterday walked 4/10 of a mile over the course of the day. Prior Treatments and Tests Pt reports she was told X-rays show L1-L3 has compression fractions. Report 05/30/20 indicates: [id number] L1-L2 and L3 compression fractures, technically age indeterminate. Treatment Goals Patient/Caregiver Goals Pt goal with therapy is to get back walking up/down her hallway 30x (mile and half in the house), elminate back pain , return to prior level of functioin without back brace. Prior Functional Status Baseline Function- ADL's Independent Baseline Function- Mobility Independent Baseline Function- Gait Walked 3-4 miles a day. Current Functional Impairments (Reported) Functional Limitations- ADL's Back pain after 10 steps Functional Limitations- Mobility/Gait Hunched over in standing Not walking outside because too unstable. Walks inside 10x in hallway max. With brace on, no back pain; without brace has back pain. Functional Limitations- Other Refuses to take Opioids. Personal Factors Other Personal Factors That May Effect Lives alone, Diabetes II, Therapy/Recovery neuropathy, high blood pressure uncontrolled, fall history with last in 2013. PT-OP-C Subjective Start: 06/11/20 18:12 Freq: Status: Active Protocol: Document 07/19/20 10:35 LRN (Rec: 07/19/20 11:19 LRN [id number]) OP-PT Subjective Patient Comments Patient Comments Walking a mile and 1/4 in 10' segments, wearing the back brace, hasn't tried walking without back brace. PT-OP-G Mobility & Gait Start: 06/11/20 18:12 Freq: Status: Active Protocol: Document 06/14/20 09:51 LRN (Rec: 06/14/20 11:35 LRN [id number]) OP Gait Assessment Gait Gait Assistance Required: Independent Able to Maintain Weight Bearing Status Yes During Gait Assistive Devices Assistive Device None Gait Deviations General Gait Pattern Wide Based Gait Factors Limiting Gait Function Factors Limiting Gait Function Decreased Activity Tolerance, Pain Comments Gait Comments Pt ambulates into therapy with notable forward bent posturing. PT-OP-H Neuro Start: 06/11/20 18:12 Freq: Status: Active Protocol: Document 06/14/20 09:51 LRN (Rec: 06/14/20 11:35 LRN [id number]) Sensation Evaluation Gross Sensation Gross Sensation WNL Comments Summary Comments Bottoms of feet not checked. PT-OP-J Posture/Palpation/Skin Start: 06/11/20 18:12 Freq: Status: Active Protocol: Document 07/12/20 09:52 LRN (Rec: 07/12/20 17:04 LRN [id number]) Posture Evaluation Comments Posture Comments Standing: Hip flexion is 5 deg's PT-OP-K Range of Motion Start: 06/11/20 18:12 Freq: Status: Active Protocol: Document 06/14/20 09:51 LRN (Rec: 06/14/20 11:35 LRN [id number]) Lumbar Spine Range of Motion Lumbar Spine Active Degrees Testing Position Standing Flexion 100 Extension 10 Lateral Flexion Left 15 Lateral Flexion Right 10 ROM Limitations Pain Comments Trunk flex is with 90 deg's hip flexion (knees flexed) Trunk ext is with 10 deg's hip ext (knees flexed) PT-OP-M Strength Start: 06/11/20 18:12 Freq: Status: Active Protocol: Document 06/14/20 09:51 LRN (Rec: 06/14/20 11:35 LRN [id number]) Hip Strength Hip Manual Muscle Testing Right Flexion (L2) 3 Fair Abduction 5 Normal Adduction 5 Normal Left Flexion (L2) 3 Fair Abduction 5 Normal Adduction 5 Normal Knee Strength Knee Manual Muscle Testing Right Comments Generally 5/5 Left Comments Generally 5/5 Ankle/Foot Strength Ankle and Foot Manual Muscle Testing Left Dorsiflexion (L4) 3 Fair Plantarflexion (S1) 5 Normal Right Dorsiflexion (L4) 5 Normal Plantarflexion (S1) 5 Normal PT-OP-Q Treatments Start: 06/11/20 18:12 Freq: Status: Active Protocol: Document 07/19/20 10:35 LRN (Rec: 07/19/20 11:19 LRN [id number]) Therapeutic Exercises Supine Exercises Trunk ext-Hands press Supine Exercise Name Trunk ext w/Hand press & cycling btn elbow press Reps/Minutes 12' Comments Excessive training needed for proper awareness of trunk extensors. Shoulder max flex press Supine Exercise Name Shoulder Max Flex Estiven Press Side bilateral Equipment Used Leg bolster above head for arms to press into Reps/Minutes 4' Lying on towel roll Supine Exercise Name Pec/Hip ER stretch f/b active stretch (scapular pinch, hip ER, trunk ext) Reps/Minutes 2 sets Comments Extra time for proper positioning each time Trunk ext Supine Exercise Name Hooklie: Elbow/Hands press into table Side bilateral Reps/Minutes 1 sets: 10 hold x 10, Extra time for training proper positioning Comments V. & phys cuing for gentle ext 30-50% . Prone Exercises quadruped cat stretch Prone Exercise Name LS ext (PT only) Reps/Minutes x5 Comments max cuing for chin tuck and CS ext- challenging Sidelying Exercises lumbar ext Sidelying Exercise Name tail bone lift QL facilitation, position btn 2 sheets of glass Side bilateral Reps/Minutes 10sec x 8 Comments Extra time to correct ex posture Sitting Exercises Seated Trunk ext Sitting Exercise Name Sitting trunk ext Reps/Minutes 4' PT-OP-T Assessment and Plan Start: 06/11/20 18:12 Freq: Status: Active Protocol: Document 07/19/20 10:35 LRN (Rec: 07/19/20 11:19 LRN [id number]) Physical Therapy Assessment Rehab Potential Rehabilitation Potential Good Evaluation Complexity Number of Personal Factors/Comorbidities 3 or More Number of Body Systems Impaired 4 or More Clinical Presentation at Evaluation Evolving Impairments Impairments Activity Tolerance,Gait,Pain, Posture,Soft Tissue Mobility, Strength Other Impairments L1, L2, L3 compression fractures, technically age indeterminate. Goals Four Impairment Poor posture in sitting and standing Short Term Goal (STG) Pt will demonstrate improved sitting posture knowledge by self correcting on request, and improved standing posture with less flexion at hips and knees (Initial: hip flexion 10 deg's, knee flexion 15 deg's) . (07/12/20: Hip flex is 5 deg's ) STG Duration 07/20/20 (07/19/20 MET GOAL) Second Hand Paper Machine Goal (LTG) Pt will demonstrate improve posture as noted by decrease vertical distance between C7 and L5- 49 cm initial. (07/19/20 43.5cm). Standing is with 3 deg's of hip flexion. LTG Duration 09/12/20 (07/19/20: Improved) Three Impairment Decreased walking ability Short Term Goal (STG) Pt will be able to walk 10x in hallway without back brace without pain (Initial: pt must use back brace for no pain with walking 10x). 07/10/20: is walking in hallway approx 1-1/4 mile, 10' stints, in her house w/o pain, wearing brace by end. STG Duration 07/20/20 Residential Goal (LTG) Pt will be able to return to her prior function of walking 1.5 miles in the house in a day without back brace and without pain. (07/19/20: Pt walking 1-1/4 mile total in hallway with rests every 10', without pain, wearing back brace). LTG Duration 09/12/20 Two Impairment Low back pain rated 3/10 with activity/walking Short Term Goal (STG) Decrease low back pain to 1-2/ 10 with activity or walking. 07/19/20: Same. STG Duration 07/20/20 (07/19/20: Same): Second Hand Paper Machine Goal (LTG) Pt will have 0-1/10 back pain with walking and no pain with functional activities at home (able to stand for functional activities such as cooking). LTG Duration 09/12/20 One Impairment Lack of appropriate self care HEP. Short Term Goal (STG) Pt will be educated on a self care spinal extension program. (07/05/20: Added to HEP: SUPINE: anter chest stretch and elbow dig for spinal ext & max tolerated shoulder flex; SITTING: Scap retract w/TB) STG Duration 07/06/20 (07/19/20: MET GOAL) Residential Goal (LTG) Pt will be independent on a self care progressive core stablization program. LTG Duration 09/12/20 (06/28/20: Progressing) Progress Towards Goals Progress Comments Goal #4: STG: MET GOAL. LTG: Improved. Standing posture improved: C7-L5 is 43.5cm (was initially 49 cm) and in standing hip flex is 5 deg's ( was initially 10 deg's). Goal #3: Pt able to slowly improve in her walking distance, but is wearing back brace for fear of increased pain with gait. Goal #2: No change in pain. Goal #1: STG: MET GOAL. LTG: HEP progressing as appropriate. Assessment Summary Assessment Pt posture is improving. Her back pain has increased now that she is able to drill grinder an upright posture (pain most likely from compression fractures L1-L3) and is walking more. She has not tried walking without her back brace yet; therefore she is not sure what her pain level is without the brace, which she will check this next week. Overall her pain has not changed, but her posture has improved immensely. The pt will benefit from further back strengthening, correction of her bent over posturing and endurance ex for return to her prior level of walking for her health. Today the pt was able to tolerate max shoulder flex stretch (reaching overhead motion) and shows QL contraction with sacral flexion to allow visible anterior pelvic tilt of her pelvis. Physical Therapy Plan Frequency and Duration Frequency of Treatment 2x/Week Plan of Care Start Date 06/14/20 Plan of Care End Date 09/12/20 Therapeutic Interventions Therapeutic Interventions Gait Training,Home Exercise Program,Joint Mobilizations, Manual Therapy,Neuromuscular Re-education,Patient/Caregiver Education,Self-Care/Home Management,Soft Tissue Mobilization,Therapeutic Exercises Modalities Cold Pack/Ice Massage,Electric Stimulation,Hot Packs, Ultrasound Next Visit Focus/Plan Next Note Type Treatment Note Next Visit Plan Try walking warm up clinic until loss of posture begins and note pain (start to end). Add STM to back (?LB vs MB) Review prone partial press ups . Continue review HEP for proper form/not over activate lumbar ext. & encourage T/S ext. Increase focus on Pec stretch. Initiate QL strengthening in sitting. Continue per PT POC: Progress strengthening when able ( gentle trunk ext strengthening for compression fractures & postural stabilization exercises for spinal ext), STM: Lumbar paraspinals, manual pelvic rocking of sacrum if needed. Add Manual STM to Iliopsoas to improve hip ext mobility and glut strength. Progress towards improved endurance for walking without brace and pain.
--- NOTE | 2020-07-24 13:45 | PT.OTN ---
Current Diagnoses Low back pain (07/24/20) Muscle weakness (generalized) (07/24/20) Other abnormalities of gait and mobility (07/24/20) Abnormal posture (07/24/20) Physical Therapy Treatment Note PT-OP-A Visit Information Start: 06/11/20 18:12 Freq: Status: Active Protocol: Document 07/24/20 09:54 LRN (Rec: 07/24/20 10:40 LRN [id number]) Out-Patient Physical Therapy Visit Information Visit Information Visit Type Treatment Note Visit Note 1 after PN Visit Start Time 09:54 Visit Stop Time 10:39 Total Visit Minutes 45 Visit Number 11 Evaluation Information Evaluation Date 06/14/20 Precautions Precautions X-rays show Compression fx's L1, L2, L3 age indeterminate. Uncontrolled HBP Diabetes II PT-OP-B Current Condition Start: 06/11/20 18:12 Freq: Status: Active Protocol: Document 06/14/20 09:51 LRN (Rec: 06/14/20 11:35 LRN [id number]) Current Condition History of Current Condition Onset Date 05/24/20 Current Complaints Back pain once up and walking. Back brace helps when moving History of Current Condition States has happened once before in March 2020 and with walking, just got over it, and overdosed self on aspirin, without seeing physician. States this time doesn't know what she did to cause the pain. Currently has been wearing a back brace given by primary care physician when up and moving most of the time unless getting up to get water. Walking again, yesterday walked 4/10 of a mile over the course of the day. Prior Treatments and Tests Pt reports she was told X-rays show L1-L3 has compression fractions. Report 05/30/20 indicates: [id number] L1-L2 and L3 compression fractures, technically age indeterminate. Treatment Goals Patient/Caregiver Goals Pt goal with therapy is to get back walking up/down her hallway 30x (mile and half in the house), elminate back pain , return to prior level of functioin without back brace. Prior Functional Status Baseline Function- ADL's Independent Baseline Function- Mobility Independent Baseline Function- Gait Walked 3-4 miles a day. Current Functional Impairments (Reported) Functional Limitations- ADL's Back pain after 10 steps Functional Limitations- Mobility/Gait Hunched over in standing Not walking outside because too unstable. Walks inside 10x in hallway max. With brace on, no back pain; without brace has back pain. Functional Limitations- Other Refuses to take Opioids. Personal Factors Other Personal Factors That May Effect Lives alone, Diabetes II, Therapy/Recovery neuropathy, high blood pressure uncontrolled, fall history with last in 2013. PT-OP-C Subjective Start: 06/11/20 18:12 Freq: Status: Active Protocol: Document 07/24/20 09:54 LRN (Rec: 07/24/20 10:40 LRN [id number]) OP-PT Subjective Patient Comments Patient Comments Back to walking 1-1.5 miles in home without back brace and pole (10' at a time). Can lie on back to sleep part of the night. PT-OP-G Mobility & Gait Start: 06/11/20 18:12 Freq: Status: Active Protocol: Document 06/14/20 09:51 LRN (Rec: 06/14/20 11:35 LRN [id number]) OP Gait Assessment Gait Gait Assistance Required: Independent Able to Maintain Weight Bearing Status Yes During Gait Assistive Devices Assistive Device None Gait Deviations General Gait Pattern Wide Based Gait Factors Limiting Gait Function Factors Limiting Gait Function Decreased Activity Tolerance, Pain Comments Gait Comments Pt ambulates into therapy with notable forward bent posturing. PT-OP-H Neuro Start: 06/11/20 18:12 Freq: Status: Active Protocol: Document 06/14/20 09:51 LRN (Rec: 06/14/20 11:35 LRN [id number]) Sensation Evaluation Gross Sensation Gross Sensation WNL Comments Summary Comments Bottoms of feet not checked. PT-OP-J Posture/Palpation/Skin Start: 06/11/20 18:12 Freq: Status: Active Protocol: Document 07/12/20 09:52 LRN (Rec: 07/12/20 17:04 LRN [id number]) Posture Evaluation Comments Posture Comments Standing: Hip flexion is 5 deg's PT-OP-K Range of Motion Start: 06/11/20 18:12 Freq: Status: Active Protocol: Document 06/14/20 09:51 LRN (Rec: 06/14/20 11:35 LRN [id number]) Lumbar Spine Range of Motion Lumbar Spine Active Degrees Testing Position Standing Flexion 100 Extension 10 Lateral Flexion Left 15 Lateral Flexion Right 10 ROM Limitations Pain Comments Trunk flex is with 90 deg's hip flexion (knees flexed) Trunk ext is with 10 deg's hip ext (knees flexed) PT-OP-M Strength Start: 06/11/20 18:12 Freq: Status: Active Protocol: Document 06/14/20 09:51 LRN (Rec: 06/14/20 11:35 LRN [id number]) Hip Strength Hip Manual Muscle Testing Right Flexion (L2) 3 Fair Abduction 5 Normal Adduction 5 Normal Left Flexion (L2) 3 Fair Abduction 5 Normal Adduction 5 Normal Knee Strength Knee Manual Muscle Testing Right Comments Generally 5/5 Left Comments Generally 5/5 Ankle/Foot Strength Ankle and Foot Manual Muscle Testing Left Dorsiflexion (L4) 3 Fair Plantarflexion (S1) 5 Normal Right Dorsiflexion (L4) 5 Normal Plantarflexion (S1) 5 Normal PT-OP-Q Treatments Start: 06/11/20 18:12 Freq: Status: Active Protocol: Document 07/24/20 09:54 LRN (Rec: 07/24/20 10:40 LRN [id number]) Therapeutic Exercises Supine Exercises Trunk ext-Hands press Supine Exercise Name Trunk Ext Hand Press Reps/Minutes 5' Lying on towel roll Supine Exercise Name Pec/Hip ER stretch f/b active stretch (scapular pinch, hip ER, trunk ext) Reps/Minutes 2 sets Comments Extra time for proper positioning each time Trunk ext Supine Exercise Name Hooklie: Elbow/Hands press into table Side bilateral Reps/Minutes 5' Comments V. & phys cuing for gentle ext 30-50% . Sitting Exercises Seated Trunk ext Sitting Exercise Name Rocking back/forth from ext> flex Reps/Minutes 4' seated posture Sitting Exercise Name Training in unsupported position Reps/Minutes 5' Comments Pt able to sit with L/S flat, no ext noted Standing Exercises Shoulder ext Standing Exercise Name Shoulder extension Reps/Minutes 3' Comments cued scap retract/ depression stabilization Therapeutic Activity Therapeutic Activity Sit <> Supine Name Sit <> Supine Reps/Minutes 2x Comments Pt showed improved method of transfer after training. Gait Training Gait Activity 10' walk Description 11' walk for decreasing pain at LB & R hip Device Used None Level of Assistance SBA Surface Level Distance/Duration 10.5' Treatment Focus Adjustment training to walking to eliminate or reduce LBP/R hip pain Comments Adjusted turning behaviour ( walking vs pivoting and turning more often L than R). Arms in Ext/ER to help eliminate LBP. Self-Care/Home Management Treatment Education Patient Education Home Exercise Program Activities Self-Care/Home Management Activities I/S pt in HEP: QL isometric strengthening (hand press up into table.) PT-OP-T Assessment and Plan Start: 06/11/20 18:12 Freq: Status: Active Protocol: Document 07/24/20 09:54 LRN (Rec: 07/24/20 10:40 LRN [id number]) Physical Therapy Assessment Goals Four Impairment Poor posture in sitting and standing Short Term Goal (STG) Pt will demonstrate improved sitting posture knowledge by self correcting on request, and improved standing posture with less flexion at hips and knees (Initial: hip flexion 10 deg's, knee flexion 15 deg's) . (07/12/20: Hip flex is 5 deg's ) STG Duration 07/20/20 (07/19/20 MET GOAL) Fpc Goal (LTG) Pt will demonstrate improve posture as noted by decrease vertical distance between C7 and L5- 49 cm initial. (07/19/20 43.5cm). Standing is with 3 deg's of hip flexion. LTG Duration 09/12/20 (07/19/20: Improved) Three Impairment Decreased walking ability Short Term Goal (STG) Pt will be able to walk 10x in hallway without back brace without pain (Initial: pt must use back brace for no pain with walking 10x). 07/10/20: is walking in hallway approx 1-1/4 mile, 10' stints, in her house w/o pain, wearing brace by end. STG Duration 07/20/20 Nuclear Radiologist Goal (LTG) Pt will be able to return to her prior function of walking 1.5 miles in the house in a day without back brace and without pain. (07/19/20: Pt walking 1-1/4 mile total in hallway with rests every 10', with pain at end of walking, w/o brace). LTG Duration 09/12/20 Two Impairment Low back pain rated 3/10 with activity/walking Short Term Goal (STG) Decrease low back pain to 1-2/ 10 with activity or walking. 07/19/20: Pain rated in R LB/ hip 3-4/10, with Tylenol no pain, but after walking pain 3 -4/10). STG Duration 07/20/20 (07/24/20: Improving) : Nuclear Radiologist Goal (LTG) Pt will have 0-1/10 back pain with walking and no pain with functional activities at home (able to stand for functional activities such as cooking). (07/24/20: Functional activities: Ache shoulder/back , not pain; pain with walking) LTG Duration 09/12/20 (07/24/20: Progressing) One Impairment Lack of appropriate self care HEP. Short Term Goal (STG) Pt will be educated on a self care spinal extension program. (HEP TO DATE: SUPINE: anter chest stretch and elbow dig for spinal ext & max tolerated shoulder flex; SITTING: *Scap retract w/TB, INSTRUCTIONS: Supine: WL strengthening Sitting: *QL isometric strengthening of hand press up into table) STG Duration 07/06/20 (07/19/20: MET GOAL) Fpc Goal (LTG) Pt will be independent on a self care progressive core stablization program. HEP TO DATE: SUPINE: *anter chest stretch, *elbow dig or hand push/press for spinal ext , *max tolerated shoulder flex, * hooklie general spinal ext SITTING: *Scap retract w/TB, STANDING: *Iliopsoas stretch, *shoulder ext INSTRUCTIONS: Supine: *QL strengthening Sitting: *QL isometric strengthening of hand press up into table) LTG Duration 09/12/20 (06/28/20: Progressing) Progress Towards Goals Progress Comments HEP progressing. Pt able to walk 10' without LBP and R hip pain if modifying the way she turns and modifitying posture during walk. Pt having no pain during functional standing activities of cooking (only aches), but she still has pain with walking. Assessment Summary Assessment Pt able to tolerate 10' walking with modifications to directions of walking turns and posture with shldr ext/ER upright posturing during walking. Pt able to walk 10' avoiding LBP and R hip pain with modifications. 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 Further anterior pelvic tilt training needed for improved upright posturing during gait to minimize stress at low back. Physical Therapy Plan Frequency and Duration Frequency of Treatment 2x/Week Plan of Care Start Date 06/14/20 Plan of Care End Date 09/12/20 Next Visit Focus/Plan Next Note Type Treatment Note Next Visit Plan Review QL strengthening in sitting (hands/table lift). Add STM to back (?LB vs MB). Review prone partial press ups . Continue review HEP for proper form/not over activate lumbar ext. & encourage T/S ext. Increase focus on Pec stretch. Continue per PT POC: Progress strengthening when able ( gentle trunk ext strengthening for compression fractures & postural stabilization exercises for spinal ext), STM: Lumbar paraspinals, manual pelvic rocking of sacrum if needed. Add Manual STM to Iliopsoas to improve hip ext mobility and glut strength. Progress towards improved endurance for walking without brace and pain.
--- NOTE | 2020-07-24 14:03 | PT.OTN ---
Current Diagnoses Low back pain (07/24/20) Muscle weakness (generalized) (07/24/20) Other abnormalities of gait and mobility (07/24/20) Abnormal posture (07/24/20) Physical Therapy Treatment Note PT-OP-A Visit Information Start: 06/11/20 18:12 Freq: Status: Active Protocol: Document 07/24/20 09:54 LRN (Rec: 07/24/20 10:40 LRN [id number]) Out-Patient Physical Therapy Visit Information Visit Information Visit Type Treatment Note Visit Note 1 after PN Visit Start Time 09:54 Visit Stop Time 10:39 Total Visit Minutes 45 Visit Number 11 Evaluation Information Evaluation Date 06/14/20 Precautions Precautions X-rays show Compression fx's L1, L2, L3 age indeterminate. Uncontrolled HBP Diabetes II PT-OP-B Current Condition Start: 06/11/20 18:12 Freq: Status: Active Protocol: Document 06/14/20 09:51 LRN (Rec: 06/14/20 11:35 LRN [id number]) Current Condition History of Current Condition Onset Date 05/24/20 Current Complaints Back pain once up and walking. Back brace helps when moving History of Current Condition States has happened once before in March 2020 and with walking, just got over it, and overdosed self on aspirin, without seeing physician. States this time doesn't know what she did to cause the pain. Currently has been wearing a back brace given by primary care physician when up and moving most of the time unless getting up to get water. Walking again, yesterday walked 4/10 of a mile over the course of the day. Prior Treatments and Tests Pt reports she was told X-rays show L1-L3 has compression fractions. Report 05/30/20 indicates: Kiss-wa-ceybklxk L1-L2 and L3 compression fractures, technically age indeterminate. Treatment Goals Patient/Caregiver Goals Pt goal with therapy is to get back walking up/down her hallway 30x (mile and half in the house), elminate back pain , return to prior level of functioin without back brace. Prior Functional Status Baseline Function- ADL's Independent Baseline Function- Mobility Independent Baseline Function- Gait Walked 3-4 miles a day. Current Functional Impairments (Reported) Functional Limitations- ADL's Back pain after 10 steps Functional Limitations- Mobility/Gait Hunched over in standing Not walking outside because too unstable. Walks inside 10x in hallway max. With brace on, no back pain; without brace has back pain. Functional Limitations- Other Refuses to take Opioids. Personal Factors Other Personal Factors That May Effect Lives alone, Diabetes II, Therapy/Recovery neuropathy, high blood pressure uncontrolled, fall history with last in 2013. PT-OP-C Subjective Start: 06/11/20 18:12 Freq: Status: Active Protocol: Document 07/24/20 09:54 LRN (Rec: 07/24/20 10:40 LRN [id number]) OP-PT Subjective Patient Comments Patient Comments Back to walking 1-1.5 miles in home without back brace and pole (10' at a time). Can lie on back to sleep part of the night. Patient Questionnaires Oswestry Low Back Index Oswestry Score 30 Oswestry Impairment 20 to 39% Impaired (Score 20- 39) PT-OP-G Mobility & Gait Start: 06/11/20 18:12 Freq: Status: Active Protocol: Document 06/14/20 09:51 LRN (Rec: 06/14/20 11:35 LRN [id number]) OP Gait Assessment Gait Gait Assistance Required: Independent Able to Maintain Weight Bearing Status Yes During Gait Assistive Devices Assistive Device None Gait Deviations General Gait Pattern Wide Based Gait Factors Limiting Gait Function Factors Limiting Gait Function Decreased Activity Tolerance, Pain Comments Gait Comments Pt ambulates into therapy with notable forward bent posturing. PT-OP-H Neuro Start: 06/11/20 18:12 Freq: Status: Active Protocol: Document 06/14/20 09:51 LRN (Rec: 06/14/20 11:35 LRN [id number]) Sensation Evaluation Gross Sensation Gross Sensation WNL Comments Summary Comments Bottoms of feet not checked. PT-OP-J Posture/Palpation/Skin Start: 06/11/20 18:12 Freq: Status: Active Protocol: Document 07/12/20 09:52 LRN (Rec: 07/12/20 17:04 LRN [id number]) Posture Evaluation Comments Posture Comments Standing: Hip flexion is 5 deg's PT-OP-K Range of Motion Start: 06/11/20 18:12 Freq: Status: Active Protocol: Document 06/14/20 09:51 LRN (Rec: 06/14/20 11:35 LRN [id number]) Lumbar Spine Range of Motion Lumbar Spine Active Degrees Testing Position Standing Flexion 100 Extension 10 Lateral Flexion Left 15 Lateral Flexion Right 10 ROM Limitations Pain Comments Trunk flex is with 90 deg's hip flexion (knees flexed) Trunk ext is with 10 deg's hip ext (knees flexed) PT-OP-M Strength Start: 06/11/20 18:12 Freq: Status: Active Protocol: Document 06/14/20 09:51 LRN (Rec: 06/14/20 11:35 LRN [id number]) Hip Strength Hip Manual Muscle Testing Right Flexion (L2) 3 Fair Abduction 5 Normal Adduction 5 Normal Left Flexion (L2) 3 Fair Abduction 5 Normal Adduction 5 Normal Knee Strength Knee Manual Muscle Testing Right Comments Generally 5/5 Left Comments Generally 5/5 Ankle/Foot Strength Ankle and Foot Manual Muscle Testing Left Dorsiflexion (L4) 3 Fair Plantarflexion (S1) 5 Normal Right Dorsiflexion (L4) 5 Normal Plantarflexion (S1) 5 Normal PT-OP-Q Treatments Start: 06/11/20 18:12 Freq: Status: Active Protocol: Document 07/24/20 09:54 LRN (Rec: 07/24/20 10:40 LRN [id number]) Therapeutic Exercises Supine Exercises Trunk ext-Hands press Supine Exercise Name Trunk Ext Hand Press Reps/Minutes 5' Lying on towel roll Supine Exercise Name Pec/Hip ER stretch f/b active stretch (scapular pinch, hip ER, trunk ext) Reps/Minutes 2 sets Comments Extra time for proper positioning each time Trunk ext Supine Exercise Name Hooklie: Elbow/Hands press into table Side bilateral Reps/Minutes 5' Comments V. & phys cuing for gentle ext 30-50% . Sitting Exercises Seated Trunk ext Sitting Exercise Name Rocking back/forth from ext> flex Reps/Minutes 4' seated posture Sitting Exercise Name Training in unsupported position Reps/Minutes 5' Comments Pt able to sit with L/S flat, no ext noted Standing Exercises Shoulder ext Standing Exercise Name Shoulder extension Reps/Minutes 3' Comments cued scap retract/ depression stabilization Therapeutic Activity Therapeutic Activity Sit <> Supine Name Sit <> Supine Reps/Minutes 2x Comments Pt showed improved method of transfer after training. Gait Training Gait Activity 10' walk Description 11' walk for decreasing pain at LB & R hip Device Used None Level of Assistance SBA Surface Level Distance/Duration 10.5' Treatment Focus Adjustment training to walking to eliminate or reduce LBP/R hip pain Comments Adjusted turning behaviour ( walking vs pivoting and turning more often L than R). Arms in Ext/ER to help eliminate LBP. Self-Care/Home Management Treatment Education Patient Education Home Exercise Program Activities Self-Care/Home Management Activities I/S pt in HEP: QL isometric strengthening (hand press up into table.) PT-OP-T Assessment and Plan Start: 06/11/20 18:12 Freq: Status: Active Protocol: Document 07/24/20 09:54 LRN (Rec: 07/24/20 10:40 LRN [id number]) Physical Therapy Assessment Goals Four Impairment Poor posture in sitting and standing Short Term Goal (STG) Pt will demonstrate improved sitting posture knowledge by self correcting on request, and improved standing posture with less flexion at hips and knees (Initial: hip flexion 10 deg's, knee flexion 15 deg's) . (07/12/20: Hip flex is 5 deg's ) STG Duration 07/20/20 (07/19/20 MET GOAL) Keno Writer / Runner Goal (LTG) Pt will demonstrate improve posture as noted by decrease vertical distance between C7 and L5- 49 cm initial. (07/19/20 43.5cm). Standing is with 3 deg's of hip flexion. LTG Duration 09/12/20 (07/19/20: Improved) Three Impairment Decreased walking ability Short Term Goal (STG) Pt will be able to walk 10x in hallway without back brace without pain (Initial: pt must use back brace for no pain with walking 10x). 07/10/20: is walking in hallway approx 1-1/4 mile, 10' stints, in her house w/o pain, wearing brace by end. STG Duration 07/20/20 Keno Writer / Runner Goal (LTG) Pt will be able to return to her prior function of walking 1.5 miles in the house in a day without back brace and without pain. (07/19/20: Pt walking 1-1/4 mile total in hallway with rests every 10', with pain at end of walking, w/o brace). LTG Duration 09/12/20 Two Impairment Low back pain rated 3/10 with activity/walking Short Term Goal (STG) Decrease low back pain to 1-2/ 10 with activity or walking. 07/19/20: Pain rated in R LB/ hip 3-4/10, with Tylenol no pain, but after walking pain 3 -4/10). STG Duration 07/20/20 (07/24/20: Improving) : Penitentiary Goal (LTG) Pt will have 0-1/10 back pain with walking and no pain with functional activities at home (able to stand for functional activities such as cooking). (07/24/20: Functional activities: Ache shoulder/back , not pain; pain with walking) LTG Duration 09/12/20 (07/24/20: Progressing) One Impairment Lack of appropriate self care HEP. Short Term Goal (STG) Pt will be educated on a self care spinal extension program. (HEP TO DATE: SUPINE: anter chest stretch and elbow dig for spinal ext & max tolerated shoulder flex; SITTING: *Scap retract w/TB, INSTRUCTIONS: Supine: WL strengthening Sitting: *QL isometric strengthening of hand press up into table) STG Duration 07/06/20 (07/19/20: MET GOAL) Penitentiary Goal (LTG) Pt will be independent on a self care progressive core stablization program. HEP TO DATE: SUPINE: *anter chest stretch, *elbow dig or hand push/press for spinal ext , *max tolerated shoulder flex, * hooklie general spinal ext SITTING: *Scap retract w/TB, STANDING: *Iliopsoas stretch, *shoulder ext INSTRUCTIONS: Supine: *QL strengthening Sitting: *QL isometric strengthening of hand press up into table) LTG Duration 09/12/20 (06/28/20: Progressing) Progress Towards Goals Progress Comments HEP progressing. Pt able to walk 10' without LBP and R hip pain if modifying the way she turns and modifitying posture during walk. Pt having no pain during functional standing activities of cooking (only aches), but she still has pain with walking. Assessment Summary Assessment Pt able to tolerate 10' walking with modifications to directions of walking turns and posture with shldr ext/ER upright posturing during walking. Pt able to walk 10' avoiding LBP and R hip pain with modifications. Pt now able to tolerate lying supine with one pillow under head and can sleep supervisor twisting department on back during the night. Further anterior pelvic tilt training needed for improved upright posturing during gait to minimize stress at low back. Physical Therapy Plan Frequency and Duration Frequency of Treatment 2x/Week Plan of Care Start Date 06/14/20 Plan of Care End Date 09/12/20 Next Visit Focus/Plan Next Note Type Treatment Note Next Visit Plan Review QL strengthening in sitting (hands/table lift). Add STM to back (?LB vs MB). Review prone partial press ups . Continue review HEP for proper form/not over activate lumbar ext. & encourage T/S ext. Increase focus on Pec stretch. Continue per PT POC: Progress strengthening when able ( gentle trunk ext strengthening for compression fractures & postural stabilization exercises for spinal ext), STM: Lumbar paraspinals, manual pelvic rocking of sacrum if needed. Add Manual STM to Iliopsoas to improve hip ext mobility and glut strength. Progress towards improved endurance for walking without brace and pain.
--- NOTE | 2020-07-26 12:15 | PT.OTN ---
Current Diagnoses Low back pain (07/26/20) Muscle weakness (generalized) (07/26/20) Other abnormalities of gait and mobility (07/26/20) Abnormal posture (07/26/20) Physical Therapy Treatment Note PT-OP-A Visit Information Start: 06/11/20 18:12 Freq: Status: Active Protocol: Document 07/26/20 09:52 LRN (Rec: 07/26/20 10:35 LRN [id number]) Out-Patient Physical Therapy Visit Information Visit Information Visit Type Treatment Note Visit Note 2 after PN Visit Start Time 09:52 Visit Stop Time 10:34 Total Visit Minutes 42 Visit Number 12 Evaluation Information Evaluation Date 06/14/20 Precautions Precautions X-rays show Compression fx's L1, L2, L3 age indeterminate. Uncontrolled HBP Diabetes II PT-OP-B Current Condition Start: 06/11/20 18:12 Freq: Status: Active Protocol: Document 06/14/20 09:51 LRN (Rec: 06/14/20 11:35 LRN [id number]) Current Condition History of Current Condition Onset Date 05/24/20 Current Complaints Back pain once up and walking. Back brace helps when moving History of Current Condition States has happened once before in March 2020 and with walking, just got over it, and overdosed self on aspirin, without seeing physician. States this time doesn't know what she did to cause the pain. Currently has been wearing a back brace given by primary care physician when up and moving most of the time unless getting up to get water. Walking again, yesterday walked 4/10 of a mile over the course of the day. Prior Treatments and Tests Pt reports she was told X-rays show L1-L3 has compression fractions. Report 05/30/20 indicates: [id number] L1-L2 and L3 compression fractures, technically age indeterminate. Treatment Goals Patient/Caregiver Goals Pt goal with therapy is to get back walking up/down her hallway 30x (mile and half in the house), elminate back pain , return to prior level of functioin without back brace. Prior Functional Status Baseline Function- ADL's Independent Baseline Function- Mobility Independent Baseline Function- Gait Walked 3-4 miles a day. Current Functional Impairments (Reported) Functional Limitations- ADL's Back pain after 10 steps Functional Limitations- Mobility/Gait Hunched over in standing Not walking outside because too unstable. Walks inside 10x in hallway max. With brace on, no back pain; without brace has back pain. Functional Limitations- Other Refuses to take Opioids. Personal Factors Other Personal Factors That May Effect Lives alone, Diabetes II, Therapy/Recovery neuropathy, high blood pressure uncontrolled, fall history with last in 2013. PT-OP-C Subjective Start: 06/11/20 18:12 Freq: Status: Active Protocol: Document 07/26/20 09:52 LRN (Rec: 07/26/20 10:35 LRN [id number]) OP-PT Subjective Patient Comments Patient Comments Can fix food with brace without pain. Can shower with pain, but if she lies down for 20' pain goes away. Only took 2 Tylenol the entire day (was having to take 10/day) as standard dose for arthritis . PT-OP-G Mobility & Gait Start: 06/11/20 18:12 Freq: Status: Active Protocol: Document 06/14/20 09:51 LRN (Rec: 06/14/20 11:35 LRN [id number]) OP Gait Assessment Gait Gait Assistance Required: Independent Able to Maintain Weight Bearing Status Yes During Gait Assistive Devices Assistive Device None Gait Deviations General Gait Pattern Wide Based Gait Factors Limiting Gait Function Factors Limiting Gait Function Decreased Activity Tolerance, Pain Comments Gait Comments Pt ambulates into therapy with notable forward bent posturing. PT-OP-H Neuro Start: 06/11/20 18:12 Freq: Status: Active Protocol: Document 06/14/20 09:51 LRN (Rec: 06/14/20 11:35 LRN [id number]) Sensation Evaluation Gross Sensation Gross Sensation WNL Comments Summary Comments Bottoms of feet not checked. PT-OP-J Posture/Palpation/Skin Start: 06/11/20 18:12 Freq: Status: Active Protocol: Document 07/12/20 09:52 LRN (Rec: 07/12/20 17:04 LRN [id number]) Posture Evaluation Comments Posture Comments Standing: Hip flexion is 5 deg's PT-OP-K Range of Motion Start: 06/11/20 18:12 Freq: Status: Active Protocol: Document 06/14/20 09:51 LRN (Rec: 06/14/20 11:35 LRN [id number]) Lumbar Spine Range of Motion Lumbar Spine Active Degrees Testing Position Standing Flexion 100 Extension 10 Lateral Flexion Left 15 Lateral Flexion Right 10 ROM Limitations Pain Comments Trunk flex is with 90 deg's hip flexion (knees flexed) Trunk ext is with 10 deg's hip ext (knees flexed) PT-OP-M Strength Start: 06/11/20 18:12 Freq: Status: Active Protocol: Document 06/14/20 09:51 LRN (Rec: 06/14/20 11:35 LRN [id number]) Hip Strength Hip Manual Muscle Testing Right Flexion (L2) 3 Fair Abduction 5 Normal Adduction 5 Normal Left Flexion (L2) 3 Fair Abduction 5 Normal Adduction 5 Normal Knee Strength Knee Manual Muscle Testing Right Comments Generally 5/5 Left Comments Generally 5/5 Ankle/Foot Strength Ankle and Foot Manual Muscle Testing Left Dorsiflexion (L4) 3 Fair Plantarflexion (S1) 5 Normal Right Dorsiflexion (L4) 5 Normal Plantarflexion (S1) 5 Normal PT-OP-Q Treatments Start: 06/11/20 18:12 Freq: Status: Active Protocol: Document 07/26/20 09:52 LRN (Rec: 07/26/20 10:35 LRN [id number]) Therapeutic Exercises Supine Exercises Trunk ext-Hands press Supine Exercise Name Trunk Ext Hand Press Reps/Minutes 5' Shoulder max flex press Supine Exercise Name Shoulder Max Flex Estiven Press Side bilateral Equipment Used Back of Chair for hands to press against Reps/Minutes 4' Lying on towel roll Supine Exercise Name Pec/Hip ER stretch f/b active stretch (scapular pinch, hip ER, trunk ext) Reps/Minutes 2 sets Comments Extra time for proper positioning each time Prone Exercises T/S ext/QL tightening Prone Exercise Name Sinking in ~T5-6 & Lift of Coccyx Reps/Minutes 7' quadruped cat stretch Prone Exercise Name TS ext Reps/Minutes 6' Sitting Exercises Seated Trunk ext Sitting Exercise Name Sitting finger press up into table Side bilateral Reps/Minutes 4' Therapeutic Activity Therapeutic Activity Sit <> Supine Name Sit <> Supine Reps/Minutes 2x Comments Pt showed improved method of transfer after training. Self-Care/Home Management Treatment Education Patient Education Posture Other Education Educated pt in proper sitting posture with multiple cues both at T/S and L/S region. Educated pt in modification of her showering posture ( preventing forward bending to wash lower regions). Discussed/educated pt in modifications of reaching/ bending (using LE's as much as possible). PT-OP-T Assessment and Plan Start: 06/11/20 18:12 Freq: Status: Active Protocol: Document 07/26/20 09:52 LRN (Rec: 07/26/20 10:35 LRN [id number]) Physical Therapy Assessment Goals Four Impairment Poor posture in sitting and standing Short Term Goal (STG) Pt will demonstrate improved sitting posture knowledge by self correcting on request, and improved standing posture with less flexion at hips and knees (Initial: hip flexion 10 deg's, knee flexion 15 deg's) . (07/12/20: Hip flex is 5 deg's ) STG Duration 07/20/20 (07/19/20 MET GOAL) Group Home Goal (LTG) Pt will demonstrate improve posture as noted by decrease vertical distance between C7 and L5- 49 cm initial. (07/19/20 43.5cm). Standing is with 3 deg's of hip flexion. LTG Duration 09/12/20 (07/19/20: Improved) Three Impairment Decreased walking ability Short Term Goal (STG) Pt will be able to walk 10x in hallway without back brace without pain (Initial: pt must use back brace for no pain with walking 10x). 07/10/20: is walking in hallway approx 1-1/4 mile, 10' stints, in her house w/o pain, wearing brace by end. STG Duration 07/20/20 (07/26/20: GOAL MET) Group Home Goal (LTG) Pt will be able to return to her prior function of walking 1.5 miles in the house in a day without back brace and without pain. (07/19/20: Pt walking 1-1/4 mile total in hallway with rests every 10', with pain at end of walking, w/o brace). LTG Duration 09/12/20 Two Impairment Low back pain rated 3/10 with activity/walking Short Term Goal (STG) Decrease low back pain to 1-2/ 10 with activity or walking. 07/19/20: Pain rated in R LB/ hip 3-4/10, with Tylenol no pain, but after walking pain 3 -4/10). STG Duration 07/20/20 (07/24/20: Improving) : Group Home Goal (LTG) Pt will have 0-1/10 back pain with walking and no pain with functional activities at home (able to stand for functional activities such as cooking). (07/24/20: Functional activities: Ache shoulder/back , not pain; pain with walking) LTG Duration 09/12/20 (07/24/20: Progressing) One Impairment Lack of appropriate self care HEP. Short Term Goal (STG) Pt will be educated on a self care spinal extension program. (HEP TO DATE: SUPINE: anter chest stretch and elbow dig for spinal ext & max tolerated shoulder flex; SITTING: *Scap retract w/TB, INSTRUCTIONS: Supine: WL strengthening Sitting: *QL isometric strengthening of hand press up into table) STG Duration 07/06/20 (07/19/20: MET GOAL) Group Home Goal (LTG) Pt will be independent on a self care progressive core stablization program. HEP TO DATE: SUPINE: *anter chest stretch, *elbow dig or hand push/press for spinal ext , *max tolerated shoulder flex, * hooklie general spinal ext SITTING: *Scap retract w/TB, STANDING: *Iliopsoas stretch, *shoulder ext INSTRUCTIONS: Supine: *QL strengthening Sitting: *QL isometric strengthening of hand press up into table) LTG Duration 09/12/20 (06/28/20: Progressing) Progress Towards Goals Progress Comments Pt standing posture visibly improving. Assessment Summary Assessment Pt needed postural adjustment to do trunk ext ex with estiven press properly to prevent thoracic flex, pt was able to perform properly after training. Pt able to lie prone without pain and is able to perform a tailbone lift without using hip flexors. Max flex Estiven press against chair back was without shoulder pain. Physical Therapy Plan Frequency and Duration Frequency of Treatment 2x/Week Plan of Care Start Date 06/14/20 Plan of Care End Date 09/12/20 Next Visit Focus/Plan Next Note Type Treatment Note Next Visit Plan Remeasure standing posture for improvement. Add STM to back (?LB vs MB). Continue review HEP for proper form/not over activate lumbar ext. & encourage T/S ext. Increase focus on Pec stretch. Continue per PT POC: Progress strengthening when able ( gentle trunk ext strengthening for compression fractures & postural stabilization exercises for spinal ext), STM: Lumbar paraspinals, manual pelvic rocking of sacrum if needed. Add Manual STM to Iliopsoas to improve hip ext mobility and glut strength. Progress towards improved endurance for walking without brace and pain.
--- NOTE | 2020-07-31 10:35 | PT.OTN ---
Current Diagnoses Low back pain (07/31/20) Muscle weakness (generalized) (07/31/20) Other abnormalities of gait and mobility (07/31/20) Abnormal posture (07/31/20) Physical Therapy Treatment Note PT-OP-A Visit Information Start: 06/11/20 18:12 Freq: Status: Active Protocol: Document 07/31/20 09:51 LD (Rec: 07/31/20 11:16 LD [id number]) Out-Patient Physical Therapy Visit Information Visit Information Visit Type Treatment Note Visit Note CORTES Walter co-led tx w/ COLLECTION OFFICER Darlin. Visit Start Time 09:51 Visit Stop Time 10:35 Total Visit Minutes 44 Visit Number 13 Number of COLLECTION OFFICER Visits 1 PT-OP-B Current Condition Start: 06/11/20 18:12 Freq: Status: Active Protocol: Document 06/14/20 09:51 LRN (Rec: 06/14/20 11:35 LRN [id number]) Current Condition History of Current Condition Onset Date 05/24/20 Current Complaints Back pain once up and walking. Back brace helps when moving History of Current Condition States has happened once before in March 2020 and with walking, just got over it, and overdosed self on aspirin, without seeing physician. States this time doesn't know what she did to cause the pain. Currently has been wearing a back brace given by primary care physician when up and moving most of the time unless getting up to get water. Walking again, yesterday walked 4/10 of a mile over the course of the day. Prior Treatments and Tests Pt reports she was told X-rays show L1-L3 has compression fractions. Report 05/30/20 indicates: [id number] L1-L2 and L3 compression fractures, technically age indeterminate. Treatment Goals Patient/Caregiver Goals Pt goal with therapy is to get back walking up/down her hallway 30x (mile and half in the house), elminate back pain , return to prior level of functioin without back brace. Prior Functional Status Baseline Function- ADL's Independent Baseline Function- Mobility Independent Baseline Function- Gait Walked 3-4 miles a day. Current Functional Impairments (Reported) Functional Limitations- ADL's Back pain after 10 steps Functional Limitations- Mobility/Gait Hunched over in standing Not walking outside because too unstable. Walks inside 10x in hallway max. With brace on, no back pain; without brace has back pain. Functional Limitations- Other Refuses to take Opioids. Personal Factors Other Personal Factors That May Effect Lives alone, Diabetes II, Therapy/Recovery neuropathy, high blood pressure uncontrolled, fall history with last in 2013. 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 PT-OP-G Mobility & Gait Start: 06/11/20 18:12 Freq: Status: Active Protocol: Document 06/14/20 09:51 LRN (Rec: 06/14/20 11:35 LRN [id number]) OP Gait Assessment Gait Gait Assistance Required: Independent Able to Maintain Weight Bearing Status Yes During Gait Assistive Devices Assistive Device None Gait Deviations General Gait Pattern Wide Based Gait Factors Limiting Gait Function Factors Limiting Gait Function Decreased Activity Tolerance, Pain Comments Gait Comments Pt ambulates into therapy with notable forward bent posturing. PT-OP-H Neuro Start: 06/11/20 18:12 Freq: Status: Active Protocol: Document 06/14/20 09:51 LRN (Rec: 06/14/20 11:35 LRN [id number]) Sensation Evaluation Gross Sensation Gross Sensation WNL Comments Summary Comments Bottoms of feet not checked. PT-OP-J Posture/Palpation/Skin Start: 06/11/20 18:12 Freq: Status: Active Protocol: Document 07/12/20 09:52 LRN (Rec: 07/12/20 17:04 LRN [id number]) Posture Evaluation Comments Posture Comments Standing: Hip flexion is 5 deg's PT-OP-K Range of Motion Start: 06/11/20 18:12 Freq: Status: Active Protocol: Document 06/14/20 09:51 LRN (Rec: 06/14/20 11:35 LRN [id number]) Lumbar Spine Range of Motion Lumbar Spine Active Degrees Testing Position Standing Flexion 100 Extension 10 Lateral Flexion Left 15 Lateral Flexion Right 10 ROM Limitations Pain Comments Trunk flex is with 90 deg's hip flexion (knees flexed) Trunk ext is with 10 deg's hip ext (knees flexed) PT-OP-M Strength Start: 06/11/20 18:12 Freq: Status: Active Protocol: Document 06/14/20 09:51 LRN (Rec: 06/14/20 11:35 LRN [id number]) Hip Strength Hip Manual Muscle Testing Right Flexion (L2) 3 Fair Abduction 5 Normal Adduction 5 Normal Left Flexion (L2) 3 Fair Abduction 5 Normal Adduction 5 Normal Knee Strength Knee Manual Muscle Testing Right Comments Generally 5/5 Left Comments Generally 5/5 Ankle/Foot Strength Ankle and Foot Manual Muscle Testing Left Dorsiflexion (L4) 3 Fair Plantarflexion (S1) 5 Normal Right Dorsiflexion (L4) 5 Normal Plantarflexion (S1) 5 Normal PT-OP-Q Treatments Start: 06/11/20 18:12 Freq: Status: Active Protocol: Document 07/31/20 09:51 LD (Rec: 07/31/20 11:16 LD [id number]) Therapeutic Exercises Supine Exercises Trunk ext-Hands press Supine Exercise Name Trunk Ext Hand Press Reps/Minutes 5' Comments dicussed not performed, performed in morning getting out of bed Shoulder max flex press Supine Exercise Name Shoulder Max Flex Estiven Press Side bilateral Equipment Used Back of Chair for hands to press against Reps/Minutes 4' Comments discussed not performed, performed in morning when getting out of bed. Prone Exercises quadruped lateral trunk flexion Prone Exercise Name added to HEP Reps/Minutes 10x5 sec Comments cued for thoracic initially, then lateral pelvic tilts (tail wag) quadruped cat stretch Prone Exercise Name TS ext Reps/Minutes Sitting Exercises scapular pinches Sitting Exercise Name reviewed HEP Resistance L1 Equipment Used towel roll at TS/ LS junction Reps/Minutes 10x Comments cued for scap squeeze shoulder blade seated posture Sitting Exercise Name w/ towel roll on lumbar, review Reps/Minutes 5x10 sec hold Comments back against chair w/ towel roll to facilitate Thoracic/lumbar junction extension Manual Therapy Treatment Soft Tissue Mobilization QL Body Location Bilateral QL, paraspinals Mobilization Type Strumming,Sustained Pressure, Trigger Point Release Intensity/Depth Moderate Body Position Prone Comments posistive response. L more sensitive than right. PT-OP-T Assessment and Plan Start: 06/11/20 18:12 Freq: Status: Active Protocol: Document 07/31/20 09:51 LD (Rec: 07/31/20 11:16 LD [id number]) Physical Therapy Assessment Goals Four Impairment Poor posture in sitting and standing Short Term Goal (STG) Pt will demonstrate improved sitting posture knowledge by self correcting on request, and improved standing posture with less flexion at hips and knees (Initial: hip flexion 10 deg's, knee flexion 15 deg's) . (07/12/20: Hip flex is 5 deg's ) STG Duration 07/20/20 (07/19/20 MET GOAL) Longterm Goal (LTG) Pt will demonstrate improve posture as noted by decrease vertical distance between C7 and L5- 49 cm initial. (07/19/20 43.5cm). Standing is with 3 deg's of hip flexion. (07/31/20- 43 cm) Standing hip flexion not measured today. LTG Duration 09/12/20 (07/19/20: Improved) Three Impairment Decreased walking ability Short Term Goal (STG) Pt will be able to walk 10x in hallway without back brace without pain (Initial: pt must use back brace for no pain with walking 10x). 07/10/20: is walking in hallway approx 1-1/4 mile, 10' stints, in her house w/o pain, wearing brace by end. STG Duration 07/20/20 (07/26/20: GOAL MET) Animal Cruelty Investigation Supervisor Goal (LTG) Pt will be able to return to her prior function of walking 1.5 miles in the house in a day without back brace and without pain. (07/19/20: Pt walking 1-1/4 mile total in hallway with rests every 10', with pain at end of walking, w/o brace). LTG Duration 09/12/20 Two Impairment Low back pain rated 3/10 with activity/walking Short Term Goal (STG) Decrease low back pain to 1-2/ 10 with activity or walking. 07/19/20: Pain rated in R LB/ hip 3-4/10, with Tylenol no pain, but after walking pain 3 -4/10). STG Duration 07/20/20 (07/24/20: Improving) : Animal Cruelty Investigation Supervisor Goal (LTG) Pt will have 0-1/10 back pain with walking and no pain with functional activities at home (able to stand for functional activities such as cooking). (07/24/20: Functional activities: Ache shoulder/back , not pain; pain with walking) LTG Duration 09/12/20 (07/24/20: Progressing) One Impairment Lack of appropriate self care HEP. Short Term Goal (STG) Pt will be educated on a self care spinal extension program. (HEP TO DATE: SUPINE: anter chest stretch and elbow dig for spinal ext & max tolerated shoulder flex; SITTING: *Scap retract w/TB, INSTRUCTIONS: Supine: WL strengthening Sitting: *QL isometric strengthening of hand press up into table) STG Duration 07/06/20 (07/19/20: MET GOAL) Longterm Goal (LTG) Pt will be independent on a self care progressive core stablization program. HEP TO DATE: QUADRIPED: TS ext cow stretch, laterl tilts (tail wag) SUPINE: *anter chest stretch, *elbow dig or hand push/press for spinal ext , *max tolerated shoulder flex, * hooklie general spinal ext SITTING: *Scap retract w/TB, STANDING: *Iliopsoas stretch, *shoulder ext INSTRUCTIONS: Supine: *QL strengthening Sitting: *QL isometric strengthening of hand press up into table) LTG Duration 09/12/20 (06/28/20: Progressing) Assessment Summary Assessment Tx focus on postural alignment and manual therapy. Improving postural measurement with standing posture, did not assessed hip flexion when standing may need to be reassessed next tx. Pt able to lie prone for manual therapy, w/ no increasing pain and positive feedback. Pt demonstrated good sitting posture w/ self correction and no increase in lumbar extension so reviewed scap retraction against resistance. Added lateral trunk flexion, requiring cues for TS ext initially followed by lateral tilts, pt reports this to be beneficial. Pt reports no increasing pain at end of tx. Copied all HEP hand outs and having scanned in she has in her folder for awareness. Physical Therapy Plan Frequency and Duration Frequency of Treatment 2x/Week Plan of Care Start Date 06/14/20 Plan of Care End Date 09/12/20 Therapeutic Interventions Therapeutic Interventions Gait Training,Home Exercise Program,Joint Mobilizations, Manual Therapy,Neuromuscular Re-education,Patient/Caregiver Education,Self-Care/Home Management,Soft Tissue Mobilization,Therapeutic Exercises Modalities Cold Pack/Ice Massage,Electric Stimulation,Hot Packs, Ultrasound Next Visit Focus/Plan Next Note Type Treatment Note Next Visit Plan Assess response to last tx: manual, remeasure standing posture for improvement gains. Continue review HEP for proper form/not over activate lumbar ext. & encourage T/S ext. Increase focus on Pec stretch next tx. Continue per PT POC: Progress strengthening when able ( gentle trunk ext strengthening for compression fractures & postural stabilization exercises for spinal ext), STM: Lumbar paraspinals, manual pelvic rocking of sacrum if needed. Add Manual STM to Iliopsoas to improve hip ext mobility and glut strength. Progress towards improved endurance for walking without brace and pain.
--- NOTE | 2020-08-02 11:54 | PT.OTN ---
Current Diagnoses Low back pain (08/02/20) Muscle weakness (generalized) (08/02/20) Other abnormalities of gait and mobility (08/02/20) Abnormal posture (08/02/20) Physical Therapy Treatment Note PT-OP-A Visit Information Start: 06/11/20 18:12 Freq: Status: Active Protocol: Document 08/02/20 10:38 LRN (Rec: 08/02/20 11:39 LRN [id number]) Out-Patient Physical Therapy Visit Information Visit Information Visit Type Treatment Note Visit Start Time 10:38 Visit Stop Time 11:20 Total Visit Minutes 42 Visit Number 14 Evaluation Information Evaluation Date 06/14/20 Precautions Precautions X-rays show Compression fx's L1, L2, L3 age indeterminate. Uncontrolled HBP Diabetes II PT-OP-B Current Condition Start: 06/11/20 18:12 Freq: Status: Active Protocol: Document 06/14/20 09:51 LRN (Rec: 06/14/20 11:35 LRN [id number]) Current Condition History of Current Condition Onset Date 05/24/20 Current Complaints Back pain once up and walking. Back brace helps when moving History of Current Condition States has happened once before in March 2020 and with walking, just got over it, and overdosed self on aspirin, without seeing physician. States this time doesn't know what she did to cause the pain. Currently has been wearing a back brace given by primary care physician when up and moving most of the time unless getting up to get water. Walking again, yesterday walked 4/10 of a mile over the course of the day. Prior Treatments and Tests Pt reports she was told X-rays show L1-L3 has compression fractions. Report 05/30/20 indicates: [id number] L1-L2 and L3 compression fractures, technically age indeterminate. Treatment Goals Patient/Caregiver Goals Pt goal with therapy is to get back walking up/down her hallway 30x (mile and half in the house), elminate back pain , return to prior level of functioin without back brace. Prior Functional Status Baseline Function- ADL's Independent Baseline Function- Mobility Independent Baseline Function- Gait Walked 3-4 miles a day. Current Functional Impairments (Reported) Functional Limitations- ADL's Back pain after 10 steps Functional Limitations- Mobility/Gait Hunched over in standing Not walking outside because too unstable. Walks inside 10x in hallway max. With brace on, no back pain; without brace has back pain. Functional Limitations- Other Refuses to take Opioids. Personal Factors Other Personal Factors That May Effect Lives alone, Diabetes II, Therapy/Recovery neuropathy, high blood pressure uncontrolled, fall history with last in 2013. PT-OP-C Subjective Start: 06/11/20 18:12 Freq: Status: Active Protocol: Document 08/02/20 10:38 LRN (Rec: 08/02/20 11:39 LRN [id number]) OP-PT Subjective Patient Comments Patient Comments Back rub last session felt good. States can walk 5' before hurting but later in the day can't walk without pain. Can do morning chores without having to rest. PT-OP-G Mobility & Gait Start: 06/11/20 18:12 Freq: Status: Active Protocol: Document 06/14/20 09:51 LRN (Rec: 06/14/20 11:35 LRN [id number]) OP Gait Assessment Gait Gait Assistance Required: Independent Able to Maintain Weight Bearing Status Yes During Gait Assistive Devices Assistive Device None Gait Deviations General Gait Pattern Wide Based Gait Factors Limiting Gait Function Factors Limiting Gait Function Decreased Activity Tolerance, Pain Comments Gait Comments Pt ambulates into therapy with notable forward bent posturing. PT-OP-H Neuro Start: 06/11/20 18:12 Freq: Status: Active Protocol: Document 06/14/20 09:51 LRN (Rec: 06/14/20 11:35 LRN [id number]) Sensation Evaluation Gross Sensation Gross Sensation WNL Comments Summary Comments Bottoms of feet not checked. PT-OP-J Posture/Palpation/Skin Start: 06/11/20 18:12 Freq: Status: Active Protocol: Document 07/12/20 09:52 LRN (Rec: 07/12/20 17:04 LRN [id number]) Posture Evaluation Comments Posture Comments Standing: Hip flexion is 5 deg's PT-OP-K Range of Motion Start: 06/11/20 18:12 Freq: Status: Active Protocol: Document 06/14/20 09:51 LRN (Rec: 06/14/20 11:35 LRN [id number]) Lumbar Spine Range of Motion Lumbar Spine Active Degrees Testing Position Standing Flexion 100 Extension 10 Lateral Flexion Left 15 Lateral Flexion Right 10 ROM Limitations Pain Comments Trunk flex is with 90 deg's hip flexion (knees flexed) Trunk ext is with 10 deg's hip ext (knees flexed) PT-OP-M Strength Start: 06/11/20 18:12 Freq: Status: Active Protocol: Document 06/14/20 09:51 LRN (Rec: 06/14/20 11:35 LRN [id number]) Hip Strength Hip Manual Muscle Testing Right Flexion (L2) 3 Fair Abduction 5 Normal Adduction 5 Normal Left Flexion (L2) 3 Fair Abduction 5 Normal Adduction 5 Normal Knee Strength Knee Manual Muscle Testing Right Comments Generally 5/5 Left Comments Generally 5/5 Ankle/Foot Strength Ankle and Foot Manual Muscle Testing Left Dorsiflexion (L4) 3 Fair Plantarflexion (S1) 5 Normal Right Dorsiflexion (L4) 5 Normal Plantarflexion (S1) 5 Normal PT-OP-Q Treatments Start: 06/11/20 18:12 Freq: Status: Active Protocol: Document 08/02/20 10:38 LRN (Rec: 08/02/20 11:39 LRN [id number]) Cardio Equipment Upper Body Ergometer (UBE) Duration (Minutes) 5 RPM 70 Seat Position 13 Height 2 Other Back rest, 3' bwd, 2' fwd Therapeutic Exercises Prone Exercises Scapular pinches Prone Exercise Name Scap pinch w/arms by sides & 90/90 position Reps/Minutes Hold 3-5 x 8 quadruped lateral trunk flexion Prone Exercise Name Quadruped lateral trunk flex Reps/Minutes 6' Comments Cued for lumbar ext & lateral pelvic tilits T/S ext/QL tightening Prone Exercise Name Sinking in ~T5-6 & L/S & Lift of Coccyx Reps/Minutes 4' quadruped cat stretch Prone Exercise Name TS ex Reps/Minutes 6' Standing Exercises Wall Standing Standing Exercise Name Wall standing Reps/Minutes 4' Comments Extra time for discussion and positioning assist/training Iliopsoas stretch Standing Exercise Name Iliopsoas stretch f/b active hip ext Side bilateral Reps/Minutes 60 hold f/b 10 active stretches via pelvic tilts and hip ext Comments Extra time for proper positioning & teaching active stretch. Manual Therapy Treatment Soft Tissue Mobilization QL Body Location Bilateral QL, paraspinals Mobilization Type Strumming,Sustained Pressure, Trigger Point Release Intensity/Depth Moderate Body Position Prone Comments posistive response. L more sensitive than right. PT-OP-T Assessment and Plan Start: 06/11/20 18:12 Freq: Status: Active Protocol: Document 08/02/20 10:38 LRN (Rec: 08/02/20 11:39 LRN [id number]) Physical Therapy Assessment Goals Four Impairment Poor posture in sitting and standing Short Term Goal (STG) Pt will demonstrate improved sitting posture knowledge by self correcting on request, and improved standing posture with less flexion at hips and knees (Initial: hip flexion 10 deg's, knee flexion 15 deg's) . (07/12/20: Hip flex is 5 deg's ) STG Duration 07/20/20 (07/19/20 MET GOAL) Can Dragger Goal (LTG) Pt will demonstrate improve posture as noted by decrease vertical distance between C7 and L5- 49 cm initial. (07/19/20 43.5cm). Standing is with 3 deg's of hip flexion. (07/31/20- 43 cm) (08/02/20: 0 deg's hip flex standing, R knee 1-2 deg's flexed). LTG Duration 09/12/20 (07/19/20: Progressing) Three Impairment Decreased walking ability Short Term Goal (STG) Pt will be able to walk 10x in hallway without back brace without pain (Initial: pt must use back brace for no pain with walking 10x). 07/10/20: is walking in hallway approx 1-1/4 mile, 10' stints, in her house w/o pain, wearing brace by end. STG Duration 07/20/20 (07/26/20: GOAL MET) Alf Goal (LTG) Pt will be able to return to her prior function of walking 1.5 miles in the house in a day without back brace and without pain. (07/19/20: Pt walking 1-1/4 mile total in hallway with rests every 10', with pain at end of walking, w/o brace. 08/02/20: Pt walks 5' w/o back brace prior to back fatigue). LTG Duration 09/12/20 (08/02/20: Progressing) Two Impairment Low back pain rated 3/10 with activity/walking Short Term Goal (STG) Decrease low back pain to 1-2/ 10 with activity or walking. 07/19/20: Pain rated in R LB/ hip 3-4/10, with Tylenol no pain, but after walking pain 3 -4/10). STG Duration 07/20/20 (07/24/20: Improving) : Alf Goal (LTG) Pt will have 0-1/10 back pain with walking and no pain with functional activities at home (able to stand for functional activities such as cooking). (07/24/20: Functional activities: Ache shoulder/back , not pain; pain with walking) LTG Duration 09/12/20 (07/24/20: Progressing) One Impairment Lack of appropriate self care HEP. Short Term Goal (STG) Pt will be educated on a self care spinal extension program. (HEP TO DATE: SUPINE: anter chest stretch and elbow dig for spinal ext & max tolerated shoulder flex; SITTING: *Scap retract w/TB, INSTRUCTIONS: Supine: WL strengthening Sitting: *QL isometric strengthening of hand press up into table) STG Duration 07/06/20 (07/19/20: MET GOAL) Alf Goal (LTG) Pt will be independent on a self care progressive core stablization program. HEP TO DATE: SUPINE: *anter chest stretch, *elbow dig or hand push/press for spinal ext , *max tolerated shoulder flex, * hooklie general spinal ext SITTING: *Scap retract w/TB, STANDING: *Iliopsoas stretch, *shoulder ext INSTRUCTIONS: Supine: *QL strengthening Sitting: *QL isometric strengthening of hand press up into table) LTG Duration 09/12/20 (06/28/20: Progressing) Progress Towards Goals Progress Comments Pt reported improved functional tolerance (does morning chores w/o resting). Standing posture is with hips in neutral. Assessment Summary Assessment + response to STM. Pt has difficulty with new lateral trunk flex in quadraped. R hip is in pelvic R rotation and not able to position in neutral in quadraped on elbows . Pt stands with hips in neutral with R knee in slight flexion. She lacks hip ext for normal gait; she has fair tolerance to standing Iliopsoas stretching but tires quickly in arms, only holding a 30 sec stretch. Physical Therapy Plan Frequency and Duration Frequency of Treatment 2x/Week Plan of Care Start Date 06/14/20 Plan of Care End Date 09/12/20 Next Visit Focus/Plan Next Note Type Treatment Note Next Visit Plan Cont UBE for endurance strengthening of T/S. Remeasure for posture C7 to L5 (LTG #4) Encourage lumbar lordosis& improve lumbar ext endurance. Encourage hip ext for normal gait & T/S ext for neutral standing posture. Increase focus abdominal stretch and cont ex to promote pec stretch (prone paraspinal ext ex's). Precaution: compression fractures. STM: Lumbar paraspinals, manual pelvic rocking of sacrum if needed. Add Manual STM to Iliopsoas to improve hip ext mobility and glut strength. Progress towards improved endurance for walking without brace and pain.
--- NOTE | 2020-08-07 10:33 | PT.OTN ---
Current Diagnoses Low back pain (08/07/20) Muscle weakness (generalized) (08/07/20) Other abnormalities of gait and mobility (08/07/20) Abnormal posture (08/07/20) Physical Therapy Treatment Note PT-OP-A Visit Information Start: 06/11/20 18:12 Freq: Status: Active Protocol: Document 08/07/20 09:49 SP (Rec: 08/07/20 11:52 SP [id number]) Out-Patient Physical Therapy Visit Information Visit Information Visit Type Treatment Note Visit Start Time 09:49 Visit Stop Time 10:33 Total Visit Minutes 44 Visit Number 15 Number of [employer]PER[employer] Visits 1 PT-OP-B Current Condition Start: 06/11/20 18:12 Freq: Status: Active Protocol: Document 06/14/20 09:51 LRN (Rec: 06/14/20 11:35 LRN [id number]) Current Condition History of Current Condition Onset Date 05/24/20 Current Complaints Back pain once up and walking. Back brace helps when moving History of Current Condition States has happened once before in March 2020 and with walking, just got over it, and overdosed self on aspirin, without seeing physician. States this time doesn't know what she did to cause the pain. Currently has been wearing a back brace given by primary care physician when up and moving most of the time unless getting up to get water. Walking again, yesterday walked 4/10 of a mile over the course of the day. Prior Treatments and Tests Pt reports she was told X-rays show L1-L3 has compression fractions. Report 05/30/20 indicates: [id number] L1-L2 and L3 compression fractures, technically age indeterminate. Treatment Goals Patient/Caregiver Goals Pt goal with therapy is to get back walking up/down her hallway 30x (mile and half in the house), elminate back pain , return to prior level of functioin without back brace. Prior Functional Status Baseline Function- ADL's Independent Baseline Function- Mobility Independent Baseline Function- Gait Walked 3-4 miles a day. Current Functional Impairments (Reported) Functional Limitations- ADL's Back pain after 10 steps Functional Limitations- Mobility/Gait Hunched over in standing Not walking outside because too unstable. Walks inside 10x in hallway max. With brace on, no back pain; without brace has back pain. Functional Limitations- Other Refuses to take Opioids. Personal Factors Other Personal Factors That May Effect Lives alone, Diabetes II, Therapy/Recovery neuropathy, high blood pressure uncontrolled, fall history with last in 2013. PT-OP-C Subjective Start: 06/11/20 18:12 Freq: Status: Active Protocol: Document 08/07/20 09:49 SP (Rec: 08/07/20 11:52 SP [id number]) OP-PT Subjective Patient Comments Patient Comments Pt stated I feel I can reach higher over head now. I am able to take a shower, make breakfast before need to lay down to relax my back which is alot better. 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 Struggling being able to walk comfortably. PT-OP-G Mobility & Gait Start: 06/11/20 18:12 Freq: Status: Active Protocol: Document 06/14/20 09:51 LRN (Rec: 06/14/20 11:35 LRN [id number]) OP Gait Assessment Gait Gait Assistance Required: Independent Able to Maintain Weight Bearing Status Yes During Gait Assistive Devices Assistive Device None Gait Deviations General Gait Pattern Wide Based Gait Factors Limiting Gait Function Factors Limiting Gait Function Decreased Activity Tolerance, Pain Comments Gait Comments Pt ambulates into therapy with notable forward bent posturing. PT-OP-H Neuro Start: 06/11/20 18:12 Freq: Status: Active Protocol: Document 06/14/20 09:51 LRN (Rec: 06/14/20 11:35 LRN [id number]) Sensation Evaluation Gross Sensation Gross Sensation WNL Comments Summary Comments Bottoms of feet not checked. PT-OP-J Posture/Palpation/Skin Start: 06/11/20 18:12 Freq: Status: Active Protocol: Document 07/12/20 09:52 LRN (Rec: 07/12/20 17:04 LRN [id number]) Posture Evaluation Comments Posture Comments Standing: Hip flexion is 5 deg's PT-OP-K Range of Motion Start: 06/11/20 18:12 Freq: Status: Active Protocol: Document 06/14/20 09:51 LRN (Rec: 06/14/20 11:35 LRN [id number]) Lumbar Spine Range of Motion Lumbar Spine Active Degrees Testing Position Standing Flexion 100 Extension 10 Lateral Flexion Left 15 Lateral Flexion Right 10 ROM Limitations Pain Comments Trunk flex is with 90 deg's hip flexion (knees flexed) Trunk ext is with 10 deg's hip ext (knees flexed) PT-OP-M Strength Start: 06/11/20 18:12 Freq: Status: Active Protocol: Document 06/14/20 09:51 LRN (Rec: 06/14/20 11:35 LRN [id number]) Hip Strength Hip Manual Muscle Testing Right Flexion (L2) 3 Fair Abduction 5 Normal Adduction 5 Normal Left Flexion (L2) 3 Fair Abduction 5 Normal Adduction 5 Normal Knee Strength Knee Manual Muscle Testing Right Comments Generally 5/5 Left Comments Generally 5/5 Ankle/Foot Strength Ankle and Foot Manual Muscle Testing Left Dorsiflexion (L4) 3 Fair Plantarflexion (S1) 5 Normal Right Dorsiflexion (L4) 5 Normal Plantarflexion (S1) 5 Normal PT-OP-Q Treatments Start: 06/11/20 18:12 Freq: Status: Active Protocol: Document 08/07/20 09:49 SP (Rec: 08/07/20 11:52 SP [id number]) Cardio Equipment Upper Body Ergometer (UBE) Duration (Minutes) 6 RPM 70 Seat Position 13 Height 2 Other Back rest, 3' bwd, 3' fwd, occasional cuing for tall posture Therapeutic Exercises Sitting Exercises serratus press down Sitting Exercise Name added to HEP Resistance Chair seat Reps/Minutes 5 sec hold x5 Comments good tall posture, spinal resisted row w/ seated posture Sitting Exercise Name added to HEP Side bilateral Resistance TB #1 Reps/Minutes 2x5, 2 x day Comments cued sit front seat, tall posture, chin tuck, row back w / TS elongation/ext Standing Exercises posture facing wall TS elongation Standing Exercise Name elbow plank on wall, feet approx 12 away- Reps/Minutes 10 sec hold x5 Comments reviewed self activity doing: trunk extension at home: cued TS ext/neut LS Wall Standing Standing Exercise Name Wall standing (buttocks, mid back, towel behind head feet back to wall) Reps/Minutes 3 min (20 sec holds for self HEP) Comments Extra time for discussion and positioning assist/training Iliopsoas stretch Standing Exercise Name Iliopsoas stretch f/b active hip ext Side bilateral Reps/Minutes 60 hold f/b 10 active stretches via pelvic tilts and hip ext Comments Extra time for proper positioning & teaching active stretch. Self-Care/Home Management Treatment Education Patient Education Home Exercise Program,Posture Other Education Educated pt in proper sitting posture with multiple cues both at T/S and L/S region. Added seated serratus press downs seat chair, resisted row , wall posture back to wall and elbow plank facing with chin tuck and TS elongation emphasis. PT-OP-T Assessment and Plan Start: 06/11/20 18:12 Freq: Status: Active Protocol: Document 08/07/20 09:49 SP (Rec: 08/07/20 11:52 SP [id number]) Physical Therapy Assessment Goals Four Impairment Poor posture in sitting and standing Short Term Goal (STG) Pt will demonstrate improved sitting posture knowledge by self correcting on request, and improved standing posture with less flexion at hips and knees (Initial: hip flexion 10 deg's, knee flexion 15 deg's) . (07/12/20: Hip flex is 5 deg's ) STG Duration 07/20/20 (07/19/20 MET GOAL) Sprayer Insecticide Goal (LTG) Pt will demonstrate improve posture as noted by decrease vertical distance between C7 and L5- 49 cm initial. (07/19/20 43.5cm). Standing is with 3 deg's of hip flexion. (07/31/20- 43 cm) (08/02/20: 0 deg's hip flex standing, R knee 1-2 deg's flexed). LTG Duration 09/12/20 (07/19/20: Progressing) Three Impairment Decreased walking ability Short Term Goal (STG) Pt will be able to walk 10x in hallway without back brace without pain (Initial: pt must use back brace for no pain with walking 10x). 07/10/20: is walking in hallway approx 1-1/4 mile, 10' stints, in her house w/o pain, wearing brace by end. STG Duration 07/20/20 (07/26/20: GOAL MET) Usp Goal (LTG) Pt will be able to return to her prior function of walking 1.5 miles in the house in a day without back brace and without pain. (07/19/20: Pt walking 1-1/4 mile total in hallway with rests every 10', with pain at end of walking, w/o brace. 08/02/20: Pt walks 5' w/o back brace prior to back fatigue). LTG Duration 09/12/20 (08/02/20: Progressing) Two Impairment Low back pain rated 3/10 with activity/walking Short Term Goal (STG) Decrease low back pain to 1-2/ 10 with activity or walking. 07/19/20: Pain rated in R LB/ hip 3-4/10, with Tylenol no pain, but after walking pain 3 -4/10). STG Duration 07/20/20 (07/24/20: Improving) : Usp Goal (LTG) Pt will have 0-1/10 back pain with walking and no pain with functional activities at home (able to stand for functional activities such as cooking). (07/24/20: Functional activities: Ache shoulder/back , not pain; pain with walking) LTG Duration 09/12/20 (07/24/20: Progressing) One Impairment Lack of appropriate self care HEP. Short Term Goal (STG) Pt will be educated on a self care spinal extension program. (HEP TO DATE: SUPINE: anter chest stretch and elbow dig for spinal ext & max tolerated shoulder flex; SITTING: *Scap retract w/TB, INSTRUCTIONS: Supine: WL strengthening Sitting: *QL isometric strengthening of hand press up into table) STG Duration 07/06/20 (07/19/20: MET GOAL) Sprayer Insecticide Goal (LTG) Pt will be independent on a self care progressive core stablization program. HEP TO DATE: SUPINE: *anter chest stretch, *elbow dig or hand push/press for spinal ext , *max tolerated shoulder flex, * hooklie general spinal ext SITTING: *Scap retract w/TB, STANDING: *Iliopsoas stretch, *shoulder ext INSTRUCTIONS: Supine: *QL strengthening Sitting: *QL isometric strengthening of hand press up into table) LTG Duration 09/12/20 (06/28/20: Progressing) Assessment Summary Assessment Pt reports is making gains in UE ROM over head to her doorway and squat to give an anterior trunk stretch but also straighten her spine as well as and longer endurance in standing am activities before back starts to hurts that needs to sit. Tx today modified self activities she came up with to help stretch back and use back muscles similar to HEP given in PT. Issued serratus press sitting, resisted row with good posture to compliiment. 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 Next tx look at body mechanics walking and stocking shelf positioning to help support her interests. Physical Therapy Plan Frequency and Duration Frequency of Treatment 2x/Week Plan of Care Start Date 06/14/20 Plan of Care End Date 09/12/20 Therapeutic Interventions Therapeutic Interventions Gait Training,Home Exercise Program,Joint Mobilizations, Manual Therapy,Neuromuscular Re-education,Patient/Caregiver Education,Self-Care/Home Management,Soft Tissue Mobilization,Therapeutic Exercises Modalities Cold Pack/Ice Massage,Electric Stimulation,Hot Packs, Ultrasound Next Visit Focus/Plan Next Note Type Treatment Note Next Visit Plan Cont UBE for endurance strengthening of T/S. Remeasure for posture C7 to L5 (LTG #4) Encourage lumbar lordosis& improve lumbar ext endurance. Encourage hip ext for normal gait & T/S ext for neutral standing posture. Increase focus abdominal stretch and cont ex to promote pec stretch (prone paraspinal ext ex's). Precaution: compression fractures. STM: Lumbar paraspinals, manual pelvic rocking of sacrum if needed. Add Manual STM to Iliopsoas to improve hip ext mobility and glut strength. Progress towards improved endurance for walking without brace and pain.
--- NOTE | 2020-08-09 10:43 | PT.OTN ---
Current Diagnoses Low back pain (08/09/20) Muscle weakness (generalized) (08/09/20) Other abnormalities of gait and mobility (08/09/20) Abnormal posture (08/09/20) Physical Therapy Treatment Note PT-OP-A Visit Information Start: 06/11/20 18:12 Freq: Status: Active Protocol: Document 08/09/20 09:54 LRN (Rec: 08/09/20 10:42 LRN [id number]) Out-Patient Physical Therapy Visit Information Visit Information Visit Type Treatment Note Visit Note 7 after PN Visit Start Time 09:54 Visit Stop Time 10:32 Total Visit Minutes 38 Visit Number 16 Evaluation Information Evaluation Date 06/14/20 Precautions Precautions X-rays show Compression fx's L1, L2, L3 age indeterminate. Uncontrolled HBP Diabetes II PT-OP-B Current Condition Start: 06/11/20 18:12 Freq: Status: Active Protocol: Document 06/14/20 09:51 LRN (Rec: 06/14/20 11:35 LRN [id number]) Current Condition History of Current Condition Onset Date 05/24/20 Current Complaints Back pain once up and walking. Back brace helps when moving History of Current Condition States has happened once before in March 2020 and with walking, just got over it, and overdosed self on aspirin, without seeing physician. States this time doesn't know what she did to cause the pain. Currently has been wearing a back brace given by primary care physician when up and moving most of the time unless getting up to get water. Walking again, yesterday walked 4/10 of a mile over the course of the day. Prior Treatments and Tests Pt reports she was told X-rays show L1-L3 has compression fractions. Report 05/30/20 indicates: [id number] L1-L2 and L3 compression fractures, technically age indeterminate. Treatment Goals Patient/Caregiver Goals Pt goal with therapy is to get back walking up/down her hallway 30x (mile and half in the house), elminate back pain , return to prior level of functioin without back brace. Prior Functional Status Baseline Function- ADL's Independent Baseline Function- Mobility Independent Baseline Function- Gait Walked 3-4 miles a day. Current Functional Impairments (Reported) Functional Limitations- ADL's Back pain after 10 steps Functional Limitations- Mobility/Gait Hunched over in standing Not walking outside because too unstable. Walks inside 10x in hallway max. With brace on, no back pain; without brace has back pain. Functional Limitations- Other Refuses to take Opioids. Personal Factors Other Personal Factors That May Effect Lives alone, Diabetes II, Therapy/Recovery neuropathy, high blood pressure uncontrolled, fall history with last in 2013. PT-OP-C Subjective Start: 06/11/20 18:12 Freq: Status: Active Protocol: Document 08/09/20 09:54 LRN (Rec: 08/09/20 10:42 LRN [id number]) OP-PT Subjective Patient Comments Patient Comments Requests leaving early. States something loosened and she is able to stretch from her doorway. 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 Getting stronger at holding her back up straight. Can do her morning stuff including showering before having to lie down. States her R knee has not gone straight for many years due to old injury. PT-OP-G Mobility & Gait Start: 06/11/20 18:12 Freq: Status: Active Protocol: Document 06/14/20 09:51 LRN (Rec: 06/14/20 11:35 LRN [id number]) OP Gait Assessment Gait Gait Assistance Required: Independent Able to Maintain Weight Bearing Status Yes During Gait Assistive Devices Assistive Device None Gait Deviations General Gait Pattern Wide Based Gait Factors Limiting Gait Function Factors Limiting Gait Function Decreased Activity Tolerance, Pain Comments Gait Comments Pt ambulates into therapy with notable forward bent posturing. PT-OP-H Neuro Start: 06/11/20 18:12 Freq: Status: Active Protocol: Document 06/14/20 09:51 LRN (Rec: 06/14/20 11:35 LRN [id number]) Sensation Evaluation Gross Sensation Gross Sensation WNL Comments Summary Comments Bottoms of feet not checked. PT-OP-J Posture/Palpation/Skin Start: 06/11/20 18:12 Freq: Status: Active Protocol: Document 07/12/20 09:52 LRN (Rec: 07/12/20 17:04 LRN [id number]) Posture Evaluation Comments Posture Comments Standing: Hip flexion is 5 deg's PT-OP-K Range of Motion Start: 06/11/20 18:12 Freq: Status: Active Protocol: Document 06/14/20 09:51 LRN (Rec: 06/14/20 11:35 LRN [id number]) Lumbar Spine Range of Motion Lumbar Spine Active Degrees Testing Position Standing Flexion 100 Extension 10 Lateral Flexion Left 15 Lateral Flexion Right 10 ROM Limitations Pain Comments Trunk flex is with 90 deg's hip flexion (knees flexed) Trunk ext is with 10 deg's hip ext (knees flexed) PT-OP-M Strength Start: 06/11/20 18:12 Freq: Status: Active Protocol: Document 06/14/20 09:51 LRN (Rec: 06/14/20 11:35 LRN [id number]) Hip Strength Hip Manual Muscle Testing Right Flexion (L2) 3 Fair Abduction 5 Normal Adduction 5 Normal Left Flexion (L2) 3 Fair Abduction 5 Normal Adduction 5 Normal Knee Strength Knee Manual Muscle Testing Right Comments Generally 5/5 Left Comments Generally 5/5 Ankle/Foot Strength Ankle and Foot Manual Muscle Testing Left Dorsiflexion (L4) 3 Fair Plantarflexion (S1) 5 Normal Right Dorsiflexion (L4) 5 Normal Plantarflexion (S1) 5 Normal PT-OP-Q Treatments Start: 06/11/20 18:12 Freq: Status: Active Protocol: Document 08/09/20 09:54 LRN (Rec: 08/09/20 10:42 LRN [id number]) Cardio Equipment Upper Body Ergometer (UBE) Duration (Minutes) 7 RPM 70 Seat Position 13 Height 2 Other Back rest, 3' bwd, 3' fwd, occasional cuing for tall posture Therapeutic Exercises Supine Exercises Trunk ext-Hands press Supine Exercise Name Trunk Ext-Hands Press Reps/Minutes 8' Comments Pt needed much training to perform trunk ext with QL for anter pelvic tilt Shoulder max flex press Supine Exercise Name Max shoulder flex margaret press into round green roll Side bilateral Reps/Minutes 10 hold x 15 Comments Trunk ext strengthening, awareness training for pt to use ext Lying on towel roll Supine Exercise Name Lying on towel roll stretch Reps/Minutes 3' Prone Exercises Prone leg lifts Prone Exercise Name Leg lifts Side bilateral Reps/Minutes 5x 1 each Scapular pinches Prone Exercise Name Scap pinch (head on hands) Reps/Minutes 5x 2 Standing Exercises Doorway forward step Standing Exercise Name Doorway fwd stepping w/ anterior Pelvic Tilt Side bilateral Reps/Minutes 9' Comments phys & v cuing required during ex posture facing wall TS elongation Standing Exercise Name elbow plank on wall, feet approx 12 away- Reps/Minutes 10 sec hold x5 Comments reviewed self activity doing: trunk extension at home: cued TS ext/neut LS PT-OP-T Assessment and Plan Start: 06/11/20 18:12 Freq: Status: Active Protocol: Document 08/09/20 09:54 LRN (Rec: 08/09/20 10:42 LRN [id number]) Physical Therapy Assessment Goals Four Impairment Poor posture in sitting and standing Short Term Goal (STG) Pt will demonstrate improved sitting posture knowledge by self correcting on request, and improved standing posture with less flexion at hips and knees (Initial: hip flexion 10 deg's, knee flexion 15 deg's) . (07/12/20: Hip flex is 5 deg's ) STG Duration 07/20/20 (07/19/20 MET GOAL) Inpatient Services Director Goal (LTG) Pt will demonstrate improve posture as noted by decrease vertical distance between C7 and L5- 49 cm initial. (08/09/20 43 cm). Standing is with 3 deg's of hip flexion. (08/09/20- 43 cm, Hip flex in standin deg's hip, R knee 1-2 deg's flexed due to old injury). LTG Duration 09/12/20 (08/09/20: Progressing) Three Impairment Decreased walking ability Short Term Goal (STG) Pt will be able to walk 10x in hallway without back brace without pain (Initial: pt must use back brace for no pain with walking 10x). 07/10/20: is walking in hallway approx 1-1/4 mile, 10' stints, in her house w/o pain, wearing brace by end. STG Duration 07/20/20 (07/26/20: GOAL MET) Retirement Goal (LTG) Pt will be able to return to her prior function of walking 1.5 miles in the house in a day without back brace and without pain. (07/19/20: Pt walking 1-1/4 mile total in hallway with rests every 10', with pain at end of walking, w/o brace. 08/02/20: Pt walks 5' w/o back brace prior to back fatigue). LTG Duration 09/12/20 (08/02/20: Progressing) Two Impairment Low back pain rated 3/10 with activity/walking Short Term Goal (STG) Decrease low back pain to 1-2/ 10 with activity or walking. 07/19/20: Pain rated in R LB/ hip 3-4/10, with Tylenol no pain, but after walking pain 3 -4/10). STG Duration 07/20/20 (07/24/20: Improving) : Inpatient Services Director Goal (LTG) Pt will have 0-1/10 back pain with walking and no pain with functional activities at home (able to stand for functional activities such as cooking). (07/24/20: Functional activities: Ache shoulder/back , not pain; pain with walking) LTG Duration 09/12/20 (07/24/20: Progressing) One Impairment Lack of appropriate self care HEP. Short Term Goal (STG) Pt will be educated on a self care spinal extension program. (HEP TO DATE: SUPINE: anter chest stretch and elbow dig for spinal ext & max tolerated shoulder flex; SITTING: *Scap retract w/TB, INSTRUCTIONS: Supine: WL strengthening Sitting: *QL isometric strengthening of hand press up into table) STG Duration 07/06/20 (07/19/20: MET GOAL) Inpatient Services Director Goal (LTG) Pt will be independent on a self care progressive core stablization program. HEP TO DATE: SUPINE: *anter chest stretch, *elbow dig or hand push/press for spinal ext , *max tolerated shoulder flex, * hooklie general spinal ext SITTING: *Scap retract w/TB, STANDING: *Iliopsoas stretch, *shoulder ext INSTRUCTIONS: Supine: *QL strengthening Sitting: *QL isometric strengthening of hand press up into table) LTG Duration 09/12/20 (06/28/20: Progressing) Progress Towards Goals Progress Comments Pt feeling like her positive spirit is back. Kyphosis decreased by decrease in measurement of C7 to L5 by 0.5 cm. Assessment Summary Assessment Pt has 0.5cm improvement in posture. She is able to stand with improved posture longer (walking between locations). No complaints of pain with prone leg lift ex or increased UBE time. Physical Therapy Plan Frequency and Duration Frequency of Treatment 1x/Week Plan of Care Start Date 06/14/20 Plan of Care End Date 09/12/20 Next Visit Focus/Plan Next Note Type Treatment Note Next Visit Plan Assess response to doorway stretch & prone hip ext HEP. Assess pt's progress towards walking without brace and pain . Cont UBE for endurance strengthening of T/S, progress gradually. Encourage lumbar lordosis& improve lumbar ext endurance. Encourage hip ext for normal gait & T/S ext for neutral standing posture. Increase focus abdominal stretch and cont ex to promote pec stretch (EDUARDA for abdominal stretch). Precaution: compression fractures. STM: manual pelvic rocking of sacrum if needed. Add Manual STM to Iliopsoas to improve hip ext mobility and glut strength. Progress towards improved endurance for walking without brace and pain.
--- NOTE | 2020-08-17 16:19 | PT.OTN ---
Current Diagnoses Low back pain (08/17/20) Muscle weakness (generalized) (08/17/20) Other abnormalities of gait and mobility (08/17/20) Abnormal posture (08/17/20) Physical Therapy Treatment Note PT-OP-A Visit Information Start: 06/11/20 18:12 Freq: Status: Active Protocol: Document 08/17/20 11:21 LRN (Rec: 08/17/20 12:09 LRN [id number]) Out-Patient Physical Therapy Visit Information Visit Information Visit Type Treatment Note Visit Note 7 after PN Visit Start Time 11:21 Visit Stop Time 12:13 Total Visit Minutes 52 Visit Number 17 Evaluation Information Evaluation Date 06/14/20 Precautions Precautions X-rays show Compression fx's L1, L2, L3 age indeterminate. Uncontrolled HBP Diabetes II PT-OP-B Current Condition Start: 06/11/20 18:12 Freq: Status: Active Protocol: Document 06/14/20 09:51 LRN (Rec: 06/14/20 11:35 LRN [id number]) Current Condition History of Current Condition Onset Date 05/24/20 Current Complaints Back pain once up and walking. Back brace helps when moving History of Current Condition States has happened once before in March 2020 and with walking, just got over it, and overdosed self on aspirin, without seeing physician. States this time doesn't know what she did to cause the pain. Currently has been wearing a back brace given by primary care physician when up and moving most of the time unless getting up to get water. Walking again, yesterday walked 4/10 of a mile over the course of the day. Prior Treatments and Tests Pt reports she was told X-rays show L1-L3 has compression fractions. Report 05/30/20 indicates: [id number] L1-L2 and L3 compression fractures, technically age indeterminate. Treatment Goals Patient/Caregiver Goals Pt goal with therapy is to get back walking up/down her hallway 30x (mile and half in the house), elminate back pain , return to prior level of functioin without back brace. Prior Functional Status Baseline Function- ADL's Independent Baseline Function- Mobility Independent Baseline Function- Gait Walked 3-4 miles a day. Current Functional Impairments (Reported) Functional Limitations- ADL's Back pain after 10 steps Functional Limitations- Mobility/Gait Hunched over in standing Not walking outside because too unstable. Walks inside 10x in hallway max. With brace on, no back pain; without brace has back pain. Functional Limitations- Other Refuses to take Opioids. Personal Factors Other Personal Factors That May Effect Lives alone, Diabetes II, Therapy/Recovery neuropathy, high blood pressure uncontrolled, fall history with last in 2013. 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 She had back pain because she would lean against chair and slouch. Walking 1.5 miles a day with some of it outside. PT-OP-G Mobility & Gait Start: 06/11/20 18:12 Freq: Status: Active Protocol: Document 06/14/20 09:51 LRN (Rec: 06/14/20 11:35 LRN [id number]) OP Gait Assessment Gait Gait Assistance Required: Independent Able to Maintain Weight Bearing Status Yes During Gait Assistive Devices Assistive Device None Gait Deviations General Gait Pattern Wide Based Gait Factors Limiting Gait Function Factors Limiting Gait Function Decreased Activity Tolerance, Pain Comments Gait Comments Pt ambulates into therapy with notable forward bent posturing. PT-OP-H Neuro Start: 06/11/20 18:12 Freq: Status: Active Protocol: Document 06/14/20 09:51 LRN (Rec: 06/14/20 11:35 LRN [id number]) Sensation Evaluation Gross Sensation Gross Sensation WNL Comments Summary Comments Bottoms of feet not checked. PT-OP-J Posture/Palpation/Skin Start: 06/11/20 18:12 Freq: Status: Active Protocol: Document 07/12/20 09:52 LRN (Rec: 07/12/20 17:04 LRN [id number]) Posture Evaluation Comments Posture Comments Standing: Hip flexion is 5 deg's PT-OP-K Range of Motion Start: 06/11/20 18:12 Freq: Status: Active Protocol: Document 06/14/20 09:51 LRN (Rec: 06/14/20 11:35 LRN [id number]) Lumbar Spine Range of Motion Lumbar Spine Active Degrees Testing Position Standing Flexion 100 Extension 10 Lateral Flexion Left 15 Lateral Flexion Right 10 ROM Limitations Pain Comments Trunk flex is with 90 deg's hip flexion (knees flexed) Trunk ext is with 10 deg's hip ext (knees flexed) PT-OP-M Strength Start: 06/11/20 18:12 Freq: Status: Active Protocol: Document 06/14/20 09:51 LRN (Rec: 06/14/20 11:35 LRN [id number]) Hip Strength Hip Manual Muscle Testing Right Flexion (L2) 3 Fair Abduction 5 Normal Adduction 5 Normal Left Flexion (L2) 3 Fair Abduction 5 Normal Adduction 5 Normal Knee Strength Knee Manual Muscle Testing Right Comments Generally 5/5 Left Comments Generally 5/5 Ankle/Foot Strength Ankle and Foot Manual Muscle Testing Left Dorsiflexion (L4) 3 Fair Plantarflexion (S1) 5 Normal Right Dorsiflexion (L4) 5 Normal Plantarflexion (S1) 5 Normal PT-OP-Q Treatments Start: 06/11/20 18:12 Freq: Status: Active Protocol: Document 08/17/20 11:21 LRN (Rec: 08/17/20 12:09 LRN [id number]) Cardio Equipment Upper Body Ergometer (UBE) Duration (Minutes) 8 RPM 70 Seat Position 12 Height 2 Other Back rest, 3' bwd, 3' fwd, occasional cuing for tall posture Therapeutic Exercises Supine Exercises Trunk ext-Hands press Supine Exercise Name Trunk Ext-Hands Press Reps/Minutes 10' Comments Extra training and cuing for pt to pivot at shoulder and hips. Prone Exercises EDUARDA Prone Exercise Name Press ups for upper T/S range only for abdominal stretch Reps/Minutes 3' Prone leg lifts Prone Exercise Name Leg lifts Side bilateral Reps/Minutes 15x 2 Standing Exercises Doorway forward step Standing Exercise Name Doorway fwd stepping w/ anterior Pelvic Tilt Side bilateral Reps/Minutes 10' Comments phys & v cuing required to perform properly Pec corner stretch Standing Exercise Name Pec stretch - arms in various positioins. Equipment Used corner Reps/Minutes 8' Comments Phys & v cuing with extra time for training PT-OP-T Assessment and Plan Start: 06/11/20 18:12 Freq: Status: Active Protocol: Document 08/17/20 11:21 LRN (Rec: 08/17/20 12:09 LRN [id number]) Physical Therapy Assessment Goals Four Impairment Poor posture in sitting and standing Short Term Goal (STG) Pt will demonstrate improved sitting posture knowledge by self correcting on request, and improved standing posture with less flexion at hips and knees (Initial: hip flexion 10 deg's, knee flexion 15 deg's) . (07/12/20: Hip flex is 5 deg's ) STG Duration 07/20/20 (07/19/20 MET GOAL) Metal Drilling Machine Operator Goal (LTG) Pt will demonstrate improve posture as noted by decrease vertical distance between C7 and L5- 49 cm initial. (08/09/20 43 cm). Standing is with 3 deg's of hip flexion. (08/09/20- 43 cm, Hip flex in standin deg's hip, R knee 1-2 deg's flexed due to old injury). LTG Duration 09/12/20 (08/09/20: Progressing) Three Impairment Decreased walking ability Short Term Goal (STG) Pt will be able to walk 10x in hallway without back brace without pain (Initial: pt must use back brace for no pain with walking 10x). 07/10/20: is walking in hallway approx 1-1/4 mile, 10' stints, in her house w/o pain, wearing brace by end. STG Duration 07/20/20 (07/26/20: GOAL MET) Metal Drilling Machine Operator Goal (LTG) Pt will be able to return to her prior function of walking 1.5 miles in the house in a day without back brace and without pain. (08/17/20: Pt walking 1-1/4 mile total in hallway with rests in 5-10', without back brace without pain). LTG Duration 09/12/20 (08/17/20: MET GOAL) Two Impairment Low back pain rated 3/10 with activity/walking Short Term Goal (STG) Decrease low back pain to 1-2/ 10 with activity or walking. 07/19/20: Pain rated in R LB/ hip 3-4/10, with Tylenol no pain, but after walking pain 3 -4/10). STG Duration 07/20/20 (07/24/20: Improving) : Metal Drilling Machine Operator Goal (LTG) Pt will have 0-1/10 back pain with walking and no pain with functional activities at home (able to stand for functional activities such as cooking). (07/24/20: Functional activities: Ache shoulder/back , not pain; pain with walking) LTG Duration 09/12/20 (07/24/20: Progressing) One Impairment Lack of appropriate self care HEP. Short Term Goal (STG) Pt will be educated on a self care spinal extension program. (HEP TO DATE: SUPINE: anter chest stretch and elbow dig for spinal ext & max tolerated shoulder flex; SITTING: *Scap retract w/TB, INSTRUCTIONS: Supine: WL strengthening Sitting: *QL isometric strengthening of hand press up into table) STG Duration 07/06/20 (07/19/20: MET GOAL) Longterm Goal (LTG) Pt will be independent on a self care progressive core stablization program. HEP TO DATE: SUPINE: *anter chest stretch, *elbow dig or hand push/press for spinal ext , *max tolerated shoulder flex, * hooklie general spinal ext SITTING: *Scap retract w/TB, STANDING: *Iliopsoas stretch, *shoulder ext INSTRUCTIONS: Supine: *QL strengthening Sitting: *QL isometric strengthening of hand press up into table) LTG Duration 09/12/20 (06/28/20: Progressing) Progress Towards Goals Progress Comments LTG # 3 MET. Pt has returned to prior function of walking 1 .5 miles without back brace at home (time broken in 10' increments). Assessment Summary Assessment Pt did not do doorway stretch from last session; therefore review needed. Pt was able to do prone hip ext but demonstrates gluteal atrophy on the left and R gluteal pain with R leg lift. Pt did too many supine trunk ext ex in trying to make pivot points at shoulders and hips while hooklying, resulting in back pain by end of therapy. Pt reported mild discomfort after ending therapy with cryotherapy to the back. Physical Therapy Plan Frequency and Duration Frequency of Treatment 1x/Week Plan of Care Start Date 06/14/20 Plan of Care End Date 09/12/20 Next Visit Focus/Plan Next Note Type Treatment Note Next Visit Plan New POC in 3 visits/3 weeks. Assess response to last treatment. Cont UBE for endurance strengthening of T/S , progress gradually. Encourage lumbar lordosis & improve lumbar ext endurance. Gait training to encourage hip ext for normal gait & T/S ext for neutral standing posture. Increase focus abdominal stretch and cont ex to promote pec stretch Assess tolerance to upper T/S EDUARDA for abdominal stretch. Precaution: compression fractures. STM: manual pelvic rocking of sacrum if needed. Add Manual STM to Iliopsoas to improve hip ext mobility and glut strength. Progress towards improved endurance for walking without brace and pain.
--- NOTE | 2020-08-24 11:15 | PT.OTN ---
Current Diagnoses Low back pain (08/24/20) Muscle weakness (generalized) (08/24/20) Other abnormalities of gait and mobility (08/24/20) Abnormal posture (08/24/20) Physical Therapy Treatment Note PT-OP-A Visit Information Start: 06/11/20 18:12 Freq: Status: Active Protocol: Document 08/24/20 10:33 SP (Rec: 08/24/20 11:47 SP [id number]) Out-Patient Physical Therapy Visit Information Visit Information Visit Type Treatment Note Visit Note 8 after PN Visit Start Time 10:33 Visit Stop Time 11:15 Total Visit Minutes 42 Visit Number 18 Number of MEAT PICKLER Visits 1 Evaluation Information Evaluation Date 06/14/20 Precautions Precautions X-rays show Compression fx's L1, L2, L3 age indeterminate. Uncontrolled HBP Diabetes II PT-OP-B Current Condition Start: 06/11/20 18:12 Freq: Status: Active Protocol: Document 06/14/20 09:51 LRN (Rec: 06/14/20 11:35 LRN [id number]) Current Condition History of Current Condition Onset Date 05/24/20 Current Complaints Back pain once up and walking. Back brace helps when moving History of Current Condition States has happened once before in March 2020 and with walking, just got over it, and overdosed self on aspirin, without seeing physician. States this time doesn't know what she did to cause the pain. Currently has been wearing a back brace given by primary care physician when up and moving most of the time unless getting up to get water. Walking again, yesterday walked 4/10 of a mile over the course of the day. Prior Treatments and Tests Pt reports she was told X-rays show L1-L3 has compression fractions. Report 05/30/20 indicates: [id number] L1-L2 and L3 compression fractures, technically age indeterminate. Treatment Goals Patient/Caregiver Goals Pt goal with therapy is to get back walking up/down her hallway 30x (mile and half in the house), elminate back pain , return to prior level of functioin without back brace. Prior Functional Status Baseline Function- ADL's Independent Baseline Function- Mobility Independent Baseline Function- Gait Walked 3-4 miles a day. Current Functional Impairments (Reported) Functional Limitations- ADL's Back pain after 10 steps Functional Limitations- Mobility/Gait Hunched over in standing Not walking outside because too unstable. Walks inside 10x in hallway max. With brace on, no back pain; without brace has back pain. Functional Limitations- Other Refuses to take Opioids. Personal Factors Other Personal Factors That May Effect Lives alone, Diabetes II, Therapy/Recovery neuropathy, high blood pressure uncontrolled, fall history with last in 2013. PT-OP-C Subjective Start: 06/11/20 18:12 Freq: Status: Active Protocol: Document 08/24/20 10:33 SP (Rec: 08/24/20 11:47 SP [id number]) OP-PT Subjective Patient Comments Patient Comments Pt arrived with back brace donned, little loose due from sitting in car. Pt stated was sore after last tx but recovered within a day. I woke up this am and R hip was hurting like pulled muscle but after did the ball rolling on glut at wall went away and able to walk better after. Pt stated is able to walk further distances outside now , does use back brace for extra support. PT-OP-G Mobility & Gait Start: 06/11/20 18:12 Freq: Status: Active Protocol: Document 06/14/20 09:51 LRN (Rec: 06/14/20 11:35 LRN [id number]) OP Gait Assessment Gait Gait Assistance Required: Independent Able to Maintain Weight Bearing Status Yes During Gait Assistive Devices Assistive Device None Gait Deviations General Gait Pattern Wide Based Gait Factors Limiting Gait Function Factors Limiting Gait Function Decreased Activity Tolerance, Pain Comments Gait Comments Pt ambulates into therapy with notable forward bent posturing. PT-OP-H Neuro Start: 06/11/20 18:12 Freq: Status: Active Protocol: Document 06/14/20 09:51 LRN (Rec: 06/14/20 11:35 LRN [id number]) Sensation Evaluation Gross Sensation Gross Sensation WNL Comments Summary Comments Bottoms of feet not checked. PT-OP-J Posture/Palpation/Skin Start: 06/11/20 18:12 Freq: Status: Active Protocol: Document 07/12/20 09:52 LRN (Rec: 07/12/20 17:04 LRN [id number]) Posture Evaluation Comments Posture Comments Standing: Hip flexion is 5 deg's PT-OP-K Range of Motion Start: 06/11/20 18:12 Freq: Status: Active Protocol: Document 06/14/20 09:51 LRN (Rec: 06/14/20 11:35 LRN [id number]) Lumbar Spine Range of Motion Lumbar Spine Active Degrees Testing Position Standing Flexion 100 Extension 10 Lateral Flexion Left 15 Lateral Flexion Right 10 ROM Limitations Pain Comments Trunk flex is with 90 deg's hip flexion (knees flexed) Trunk ext is with 10 deg's hip ext (knees flexed) PT-OP-M Strength Start: 06/11/20 18:12 Freq: Status: Active Protocol: Document 06/14/20 09:51 LRN (Rec: 06/14/20 11:35 LRN [id number]) Hip Strength Hip Manual Muscle Testing Right Flexion (L2) 3 Fair Abduction 5 Normal Adduction 5 Normal Left Flexion (L2) 3 Fair Abduction 5 Normal Adduction 5 Normal Knee Strength Knee Manual Muscle Testing Right Comments Generally 5/5 Left Comments Generally 5/5 Ankle/Foot Strength Ankle and Foot Manual Muscle Testing Left Dorsiflexion (L4) 3 Fair Plantarflexion (S1) 5 Normal Right Dorsiflexion (L4) 5 Normal Plantarflexion (S1) 5 Normal PT-OP-Q Treatments Start: 06/11/20 18:12 Freq: Status: Active Protocol: Document 08/24/20 10:33 SP (Rec: 08/24/20 11:47 SP [id number]) Cardio Equipment Upper Body Ergometer (UBE) Duration (Minutes) 8 RPM 70 Seat Position 12 Height 2 Other Back rest, 5' bwd, 3' fwd, occasional cuing for tall posture & head fwd Therapeutic Exercises Supine Exercises Trunk ext-Hands press Supine Exercise Name Trunk Ext-Hands Press on table at side Reps/Minutes 10' Comments Extra training and cuing for pt to pivot at shoulder and hips. Prone Exercises child pose stretch Prone Exercise Name states doing at home on bed Reps/Minutes 20 sec Comments chest toward bed, cued chin nod w/ CS ext neutral- EDUARDA Prone Exercise Name Elbow Press ups for upper T/S range only for abdominal stretch Equipment Used pillow under pelvis Reps/Minutes 5' Sidelying Exercises pelvic tilts Sidelying Exercise Name LS flex/ ext (post prone prop on elbows) Side right Resistance AROM Reps/Minutes x10 Standing Exercises Pec corner stretch Standing Exercise Name Pec stretch - arms in various positioins. Equipment Used doorway Reps/Minutes 3 Comments cuing for chin nod, scap depression Iliopsoas stretch Standing Exercise Name Iliopsoas stretch f/b active hip ext Side bilateral Reps/Minutes 60 hold f/b 10 active stretches via pelvic tilts and hip ext Comments cued lunge elbows on wall, tall posture hip toward wall - good pain free Gait Training Gait Activity hallway gait Description post stretching in standing Device Used 0 Level of Assistance SBA Surface stable Distance/Duration hallway distance x4 laps Treatment Focus increase stride w /hip ext and heel toe Comments cued tall posture, heel toe, space between feet, hip ext and allow arm swing if able. Improved stride. Self-Care/Home Management Treatment Activities Self-Care/Home Management Activities Time spend educating on gait phases, posture post standing stretches with improve stride heel toe, knee extension quality. Reviewed prone on elbow postioning with improved back tightness/pain gradual decrease but move up LS>lower TS which felt bad back feel better length time in position . Needed to lay on side pelvic tilts due to back pain grab feeling coming out of prone which pain went away. Once sitting worked on posture and pt stated felt taller and less tight. Pt stated might get a more firm mattress for comfort and support. PT-OP-T Assessment and Plan Start: 06/11/20 18:12 Freq: Status: Active Protocol: Document 08/24/20 10:33 SP (Rec: 08/24/20 11:47 SP [id number]) Physical Therapy Assessment Goals Four Impairment Poor posture in sitting and standing Short Term Goal (STG) Pt will demonstrate improved sitting posture knowledge by self correcting on request, and improved standing posture with less flexion at hips and knees (Initial: hip flexion 10 deg's, knee flexion 15 deg's) . (07/12/20: Hip flex is 5 deg's ) STG Duration 07/20/20 (07/19/20 MET GOAL) Retirement Goal (LTG) Pt will demonstrate improve posture as noted by decrease vertical distance between C7 and L5- 49 cm initial. (08/09/20 43 cm). Standing is with 3 deg's of hip flexion. (08/09/20- 43 cm, Hip flex in standin deg's hip, R knee 1-2 deg's flexed due to old injury). LTG Duration 09/12/20 (08/09/20: Progressing) Two Impairment Low back pain rated 3/10 with activity/walking Short Term Goal (STG) Decrease low back pain to 1-2/ 10 with activity or walking. 07/19/20: Pain rated in R LB/ hip 3-4/10, with Tylenol no pain, but after walking pain 3 -4/10). STG Duration 07/20/20 (07/24/20: Improving) : Retirement Goal (LTG) Pt will have 0-1/10 back pain with walking and no pain with functional activities at home (able to stand for functional activities such as cooking). (07/24/20: Functional activities: Ache shoulder/back , not pain; pain with walking) LTG Duration 09/12/20 (07/24/20: Progressing) One Impairment Lack of appropriate self care HEP. Short Term Goal (STG) Pt will be educated on a self care spinal extension program. (HEP TO DATE: SUPINE: anter chest stretch and elbow dig for spinal ext & max tolerated shoulder flex; SITTING: *Scap retract w/TB, INSTRUCTIONS: Supine: WL strengthening Sitting: *QL isometric strengthening of hand press up into table) STG Duration 07/06/20 (07/19/20: MET GOAL) Retirement Goal (LTG) Pt will be independent on a self care progressive core stablization program. HEP TO DATE: SUPINE: *anter chest stretch, *elbow dig or hand push/press for spinal ext , *max tolerated shoulder flex, * hooklie general spinal ext SITTING: *Scap retract w/TB, STANDING: *Iliopsoas stretch, *shoulder ext INSTRUCTIONS: Supine: *QL strengthening Sitting: *QL isometric strengthening of hand press up into table) LTG Duration 09/12/20 (06/28/20: Progressing) Assessment Summary Assessment Pt improved tall posture post stand pec, LS ext and hip flexor stretchies then initiated gait phases with improved knee and hip ext awareness with cuing for awareness of space between feet w/ tall posture. Challenged with arm swing, will address later. Continue to progress trunk posture, incorporated gait trunk posturing and gait phases to improve walks outside. Responded well to prone activity but coming out of position discomforting that improves post side pelvic tilts. Physical Therapy Plan Frequency and Duration Frequency of Treatment 1x/Week Plan of Care Start Date 06/14/20 Plan of Care End Date 09/12/20 Therapeutic Interventions Therapeutic Interventions Gait Training,Home Exercise Program,Joint Mobilizations, Manual Therapy,Neuromuscular Re-education,Patient/Caregiver Education,Self-Care/Home Management,Soft Tissue Mobilization,Therapeutic Exercises Modalities Cold Pack/Ice Massage,Electric Stimulation,Hot Packs, Ultrasound Next Visit Focus/Plan Next Note Type Treatment Note Next Visit Plan New POC in 2 visits/3 weeks. Assess response to last treatment, stretching, gait, prone on elbows. Cont UBE for endurance strengthening of T/S, progress gradually. Encourage lumbar lordosis & improve lumbar ext endurance. Continue gait training to encourage hip ext for normal gait & T/S ext for neutral standing posture. Increase focus abdominal stretch and cont ex to promote pec stretch Precaution: compression fractures. STM: manual pelvic rocking of sacrum if needed. Add Manual STM to Iliopsoas to improve hip ext mobility and glut strength. Progress towards improved endurance for walking without brace and pain.
--- NOTE | 2020-08-31 11:19 | PT.OTN ---
Current Diagnoses Low back pain (08/31/20) Muscle weakness (generalized) (08/31/20) Other abnormalities of gait and mobility (08/31/20) Abnormal posture (08/31/20) Physical Therapy Treatment Note PT-OP-A Visit Information Start: 06/11/20 18:12 Freq: Status: Active Protocol: Document 08/31/20 10:31 SP (Rec: 08/31/20 11:54 SP [id number]) Out-Patient Physical Therapy Visit Information Visit Information Visit Type Treatment Note Visit Note 9 after PN Visit Start Time 10:31 Visit Stop Time 11:19 Total Visit Minutes 48 Visit Number 19 Number of SCRAP BALLER Visits 2 Evaluation Information Evaluation Date 06/14/20 Precautions Precautions X-rays show Compression fx's L1, L2, L3 age indeterminate. Uncontrolled HBP Diabetes II PT-OP-B Current Condition Start: 06/11/20 18:12 Freq: Status: Active Protocol: Document 06/14/20 09:51 LRN (Rec: 06/14/20 11:35 LRN [id number]) Current Condition History of Current Condition Onset Date 05/24/20 Current Complaints Back pain once up and walking. Back brace helps when moving History of Current Condition States has happened once before in March 2020 and with walking, just got over it, and overdosed self on aspirin, without seeing physician. States this time doesn't know what she did to cause the pain. Currently has been wearing a back brace given by primary care physician when up and moving most of the time unless getting up to get water. Walking again, yesterday walked 4/10 of a mile over the course of the day. Prior Treatments and Tests Pt reports she was told X-rays show L1-L3 has compression fractions. Report 05/30/20 indicates: [id number] L1-L2 and L3 compression fractures, technically age indeterminate. Treatment Goals Patient/Caregiver Goals Pt goal with therapy is to get back walking up/down her hallway 30x (mile and half in the house), elminate back pain , return to prior level of functioin without back brace. Prior Functional Status Baseline Function- ADL's Independent Baseline Function- Mobility Independent Baseline Function- Gait Walked 3-4 miles a day. Current Functional Impairments (Reported) Functional Limitations- ADL's Back pain after 10 steps Functional Limitations- Mobility/Gait Hunched over in standing Not walking outside because too unstable. Walks inside 10x in hallway max. With brace on, no back pain; without brace has back pain. Functional Limitations- Other Refuses to take Opioids. Personal Factors Other Personal Factors That May Effect Lives alone, Diabetes II, Therapy/Recovery neuropathy, high blood pressure uncontrolled, fall history with last in 2013. PT-OP-C Subjective Start: 06/11/20 18:12 Freq: Status: Active Protocol: Document 08/31/20 10:31 SP (Rec: 08/31/20 11:56 SP [id number]) OP-PT Subjective Patient Comments Patient Comments Pt reported just started noticing this week that has a taller posture and losing her mid-drift, almost painfree this week. PT-OP-G Mobility & Gait Start: 06/11/20 18:12 Freq: Status: Active Protocol: Document 06/14/20 09:51 LRN (Rec: 06/14/20 11:35 LRN [id number]) OP Gait Assessment Gait Gait Assistance Required: Independent Able to Maintain Weight Bearing Status Yes During Gait Assistive Devices Assistive Device None Gait Deviations General Gait Pattern Wide Based Gait Factors Limiting Gait Function Factors Limiting Gait Function Decreased Activity Tolerance, Pain Comments Gait Comments Pt ambulates into therapy with notable forward bent posturing. PT-OP-H Neuro Start: 06/11/20 18:12 Freq: Status: Active Protocol: Document 06/14/20 09:51 LRN (Rec: 06/14/20 11:35 LRN [id number]) Sensation Evaluation Gross Sensation Gross Sensation WNL Comments Summary Comments Bottoms of feet not checked. PT-OP-J Posture/Palpation/Skin Start: 06/11/20 18:12 Freq: Status: Active Protocol: Document 07/12/20 09:52 LRN (Rec: 07/12/20 17:04 LRN [id number]) Posture Evaluation Comments Posture Comments Standing: Hip flexion is 5 deg's PT-OP-K Range of Motion Start: 06/11/20 18:12 Freq: Status: Active Protocol: Document 06/14/20 09:51 LRN (Rec: 06/14/20 11:35 LRN [id number]) Lumbar Spine Range of Motion Lumbar Spine Active Degrees Testing Position Standing Flexion 100 Extension 10 Lateral Flexion Left 15 Lateral Flexion Right 10 ROM Limitations Pain Comments Trunk flex is with 90 deg's hip flexion (knees flexed) Trunk ext is with 10 deg's hip ext (knees flexed) PT-OP-M Strength Start: 06/11/20 18:12 Freq: Status: Active Protocol: Document 06/14/20 09:51 LRN (Rec: 06/14/20 11:35 LRN [id number]) Hip Strength Hip Manual Muscle Testing Right Flexion (L2) 3 Fair Abduction 5 Normal Adduction 5 Normal Left Flexion (L2) 3 Fair Abduction 5 Normal Adduction 5 Normal Knee Strength Knee Manual Muscle Testing Right Comments Generally 5/5 Left Comments Generally 5/5 Ankle/Foot Strength Ankle and Foot Manual Muscle Testing Left Dorsiflexion (L4) 3 Fair Plantarflexion (S1) 5 Normal Right Dorsiflexion (L4) 5 Normal Plantarflexion (S1) 5 Normal PT-OP-Q Treatments Start: 06/11/20 18:12 Freq: Status: Active Protocol: Document 08/31/20 10:31 SP (Rec: 08/31/20 11:54 SP [id number]) Cardio Equipment Upper Body Ergometer (UBE) Duration (Minutes) 8 RPM 70 Seat Position 12 Height 2 Other 4'fwd/4'bwd, good posture demo Therapeutic Exercises Prone Exercises EDUARDA Prone Exercise Name Elbow Press ups for upper T/S range only for abdominal stretch Reps/Minutes 30 , 60 , Comments better chin tuck self corrections Prone leg lifts Prone Exercise Name Leg lifts Side bilateral Reps/Minutes 20x2 Comments hip wiggle helps lessens LB spasming quadruped cat stretch Prone Exercise Name TS ext on elbow and knees Reps/Minutes 20 x4 Comments cued nose down for CS neutral posture Sitting Exercises seated posture Sitting Exercise Name plum line/stacked posture at edge of table Equipment Used EO raised table Reps/Minutes 5x10 sec hold Comments contact table Standing Exercises Doorway forward step Standing Exercise Name Doorway fwd stepping w/ anterior Pelvic Tilt Side bilateral Reps/Minutes 10' Comments vcuing CS neutral w/ nose down (chin tuck) Wall Standing Standing Exercise Name Wall standing (buttocks, mid back, towel behind head feet back to wall) Equipment Used double towel roll behind head Reps/Minutes 3 min (20 sec holds for self HEP) Comments Extra time for positioning, tall CS/nose down (chin nod) Pec corner stretch Standing Exercise Name Pec stretch - arms in various positioins. Equipment Used doorway Reps/Minutes 3 Comments cuing for tall CS w/ chin nod, scap depression Iliopsoas stretch Standing Exercise Name lunge stance hands on wall, allow heel lift Side bilateral Reps/Minutes 30 x3 Comments cued lunge elbows on wall, tall posture hip toward wall - good pain free Therapeutic Activity Therapeutic Activity Sit <> Supine Name sit<> supine<> quadruped Comments prep getting on off floor for next tx (on mat table)- wants to do prone ext ex on floor at home. PT-OP-T Assessment and Plan Start: 06/11/20 18:12 Freq: Status: Active Protocol: Document 08/31/20 10:31 SP (Rec: 08/31/20 11:54 SP [id number]) Physical Therapy Assessment Goals Four Impairment Poor posture in sitting and standing Short Term Goal (STG) Pt will demonstrate improved sitting posture knowledge by self correcting on request, and improved standing posture with less flexion at hips and knees (Initial: hip flexion 10 deg's, knee flexion 15 deg's) . (07/12/20: Hip flex is 5 deg's ) STG Duration 07/20/20 (07/19/20 MET GOAL) Skilled Nursing Goal (LTG) Pt will demonstrate improve posture as noted by decrease vertical distance between C7 and L5- 49 cm initial. (08/09/20 43 cm). Standing is with 3 deg's of hip flexion. (08/31/20- 52 cm, Hip flex in standin deg's hip, R knee 2 deg's flexed due to old injury, post 49cm). LTG Duration 09/12/20 (08/09/20: Progressing) Two Impairment Low back pain rated 3/10 with activity/walking Short Term Goal (STG) Decrease low back pain to 1-2/ 10 with activity or walking. 08/31/20 Pt reports back nearly pain free this week, still only able to walk 1.25 miles at 10 min stents). STG Duration 07/20/20 (07/24/20: Improving) : Business Management Associate Goal (LTG) Pt will have 0-1/10 back pain with walking and no pain with functional activities at home (able to stand for functional activities such as cooking). (08/31/20: Functional activities: Ache shoulder/back , not pain; pain with walking) LTG Duration 09/12/20 (07/24/20: Progressing) One Impairment Lack of appropriate self care HEP. Short Term Goal (STG) Pt will be educated on a self care spinal extension program. (HEP TO DATE: SUPINE: anter chest stretch and elbow dig for spinal ext & max tolerated shoulder flex; SITTING: *Scap retract w/TB, INSTRUCTIONS: Supine: WL strengthening Sitting: *QL isometric strengthening of hand press up into table) STG Duration 07/06/20 (07/19/20: MET GOAL) Skilled Nursing Goal (LTG) Pt will be independent on a self care progressive core stablization program. HEP TO DATE: SUPINE: *anter chest stretch, *elbow dig or hand push/press for spinal ext , *max tolerated shoulder flex, * hooklie general spinal ext SITTING: *Scap retract w/TB, STANDING: *Iliopsoas stretch, *shoulder ext, *wall posture, *facing wall on elbows TS ext INSTRUCTIONS: Supine: *QL strengthening Sitting: *QL isometric strengthening of hand press up into table) LTG Duration 09/12/20 (06/28/20: Progressing) Progress Towards Goals Progress Towards Goals Progressing Toward Goals Progress Comments Pt states is nearly painfree this week and just this week is noticing feeling taller. Assessment Summary Assessment Tx focused on postural HEP and ther act to prep get on/ off floor next tx to perform prone ext ext at home, responded well doing today. Incorportated posture and tall forward posture during gait w / improved mechanics and longer stride heel to into front LE with some awareness of arm swing Physical Therapy Plan Frequency and Duration Frequency of Treatment 1x/Week Plan of Care Start Date 06/14/20 Plan of Care End Date 09/12/20 Therapeutic Interventions Therapeutic Interventions Gait Training,Home Exercise Program,Joint Mobilizations, Manual Therapy,Neuromuscular Re-education,Patient/Caregiver Education,Self-Care/Home Management,Soft Tissue Mobilization,Therapeutic Exercises Modalities Cold Pack/Ice Massage,Electric Stimulation,Hot Packs, Ultrasound Next Visit Focus/Plan Next Note Type Treatment Note Next Visit Plan New POC in 1 visits/1-2 weeks. Assess response to last treatment, stretching, gait, prone on elbows. Cont UBE for endurance strengthening of T/S, progress gradually. Encourage lumbar lordosis & improve lumbar ext endurance. Continue gait training to encourage hip ext for normal gait & T/S ext for neutral standing posture. Increase focus abdominal stretch and cont ex to promote pec stretch Precaution: compression fractures. STM: manual pelvic rocking of sacrum if needed. Add Manual STM to Iliopsoas to improve hip ext mobility and glut strength. Progress towards improved endurance for walking without brace and pain.
--- NOTE | 2020-09-07 16:03 | PT.OTN ---
Current Diagnoses Low back pain (09/07/20) Muscle weakness (generalized) (09/07/20) Other abnormalities of gait and mobility (09/07/20) Abnormal posture (09/07/20) Physical Therapy Treatment Note PT-OP-A Visit Information Start: 06/11/20 18:12 Freq: Status: Active Protocol: Document 09/07/20 09:53 LRN (Rec: 09/07/20 10:39 LRN [id number]) Out-Patient Physical Therapy Visit Information Visit Information Visit Type Treatment Note Visit Start Time 09:53 Visit Stop Time 10:34 Total Visit Minutes 41 Visit Number 20 Evaluation Information Evaluation Date 06/14/20 Precautions Precautions X-rays show Compression fx's L1, L2, L3 age indeterminate. Uncontrolled HBP Diabetes II PT-OP-B Current Condition Start: 06/11/20 18:12 Freq: Status: Active Protocol: Document 06/14/20 09:51 LRN (Rec: 06/14/20 11:35 LRN [id number]) Current Condition History of Current Condition Onset Date 05/24/20 Current Complaints Back pain once up and walking. Back brace helps when moving History of Current Condition States has happened once before in March 2020 and with walking, just got over it, and overdosed self on aspirin, without seeing physician. States this time doesn't know what she did to cause the pain. Currently has been wearing a back brace given by primary care physician when up and moving most of the time unless getting up to get water. Walking again, yesterday walked 4/10 of a mile over the course of the day. Prior Treatments and Tests Pt reports she was told X-rays show L1-L3 has compression fractions. Report 05/30/20 indicates: Syni-xr-cooxdhte L1-L2 and L3 compression fractures, technically age indeterminate. Treatment Goals Patient/Caregiver Goals Pt goal with therapy is to get back walking up/down her hallway 30x (mile and half in the house), elminate back pain , return to prior level of functioin without back brace. Prior Functional Status Baseline Function- ADL's Independent Baseline Function- Mobility Independent Baseline Function- Gait Walked 3-4 miles a day. Current Functional Impairments (Reported) Functional Limitations- ADL's Back pain after 10 steps Functional Limitations- Mobility/Gait Hunched over in standing Not walking outside because too unstable. Walks inside 10x in hallway max. With brace on, no back pain; without brace has back pain. Functional Limitations- Other Refuses to take Opioids. Personal Factors Other Personal Factors That May Effect Lives alone, Diabetes II, Therapy/Recovery neuropathy, high blood pressure uncontrolled, fall history with last in 2013. PT-OP-C Subjective Start: 06/11/20 18:12 Freq: Status: Active Protocol: Document 09/07/20 09:53 LRN (Rec: 09/07/20 10:39 LRN [id number]) OP-PT Subjective Patient Comments Patient Comments Getting better & better, staying on feet longer. 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 After [employer] run and walking a mile pain goes up, then she must lay down and ice . PT-OP-G Mobility & Gait Start: 06/11/20 18:12 Freq: Status: Active Protocol: Document 06/14/20 09:51 LRN (Rec: 06/14/20 11:35 LRN [id number]) OP Gait Assessment Gait Gait Assistance Required: Independent Able to Maintain Weight Bearing Status Yes During Gait Assistive Devices Assistive Device None Gait Deviations General Gait Pattern Wide Based Gait Factors Limiting Gait Function Factors Limiting Gait Function Decreased Activity Tolerance, Pain Comments Gait Comments Pt ambulates into therapy with notable forward bent posturing. PT-OP-H Neuro Start: 06/11/20 18:12 Freq: Status: Active Protocol: Document 06/14/20 09:51 LRN (Rec: 06/14/20 11:35 LRN [id number]) Sensation Evaluation Gross Sensation Gross Sensation WNL Comments Summary Comments Bottoms of feet not checked. PT-OP-J Posture/Palpation/Skin Start: 06/11/20 18:12 Freq: Status: Active Protocol: Document 07/12/20 09:52 LRN (Rec: 07/12/20 17:04 LRN [id number]) Posture Evaluation Comments Posture Comments Standing: Hip flexion is 5 deg's PT-OP-K Range of Motion Start: 06/11/20 18:12 Freq: Status: Active Protocol: Document 06/14/20 09:51 LRN (Rec: 06/14/20 11:35 LRN [id number]) Lumbar Spine Range of Motion Lumbar Spine Active Degrees Testing Position Standing Flexion 100 Extension 10 Lateral Flexion Left 15 Lateral Flexion Right 10 ROM Limitations Pain Comments Trunk flex is with 90 deg's hip flexion (knees flexed) Trunk ext is with 10 deg's hip ext (knees flexed) PT-OP-M Strength Start: 06/11/20 18:12 Freq: Status: Active Protocol: Document 06/14/20 09:51 LRN (Rec: 06/14/20 11:35 LRN [id number]) Hip Strength Hip Manual Muscle Testing Right Flexion (L2) 3 Fair Abduction 5 Normal Adduction 5 Normal Left Flexion (L2) 3 Fair Abduction 5 Normal Adduction 5 Normal Knee Strength Knee Manual Muscle Testing Right Comments Generally 5/5 Left Comments Generally 5/5 Ankle/Foot Strength Ankle and Foot Manual Muscle Testing Left Dorsiflexion (L4) 3 Fair Plantarflexion (S1) 5 Normal Right Dorsiflexion (L4) 5 Normal Plantarflexion (S1) 5 Normal PT-OP-Q Treatments Start: 06/11/20 18:12 Freq: Status: Active Protocol: Document 09/07/20 09:53 LRN (Rec: 09/07/20 10:39 LRN [id number]) Cardio Equipment Upper Body Ergometer (UBE) Duration (Minutes) 10 RPM 70 Seat Position 12 Height 2 Other fwd/bkwd, towel roll in lumbar regtion for good posture Therapeutic Exercises Supine Exercises Shoulder max flex press Supine Exercise Name Max shoulder flex margaret press into round green roll Side bilateral Reps/Minutes 10 hold x 15 Comments Trunk ext strengthening, awareness training for pt to use ext Lying on towel roll Supine Exercise Name Lying on towel roll stretch Reps/Minutes 3' Trunk ext Supine Exercise Name Alternate arm lifts: stretch & strengthening Side bilateral Reps/Minutes 10 hold x 6 stretch; 15x active Prone Exercises EDUARDA Prone Exercise Name Elbow Press ups for upper T/S range only for abdominal stretch Reps/Minutes 30 , 60 Comments better chin tuck self corrections Prone leg lifts Prone Exercise Name Leg lifts Side bilateral Reps/Minutes 6' Comments hip wiggle helps lessens LB spasming Scapular pinches Prone Exercise Name Scapular pinches Side bilateral Reps/Minutes 3' T/S ext/QL tightening Prone Exercise Name Sinking in ~T5-6 & L/S in semi EDUARDA position Reps/Minutes 4' Neuro Re-Education Treatment Other Activities Standing posture training Details Toes on incline for postural awareness training Reps/Duration 5' Comments Pt stepping on/off incline for postural awareness. Self-Care/Home Management Treatment Education Patient Education Home Exercise Program Activities Self-Care/Home Management Activities Reviewed re-positioning activities at home (wall and from sitting). Reviewed pt self care plan. PT-OP-T Assessment and Plan Start: 06/11/20 18:12 Freq: Status: Active Protocol: Document 09/07/20 09:53 LRN (Rec: 09/07/20 10:39 LRN [id number]) Physical Therapy Assessment Goals Four Impairment Poor posture in sitting and standing Short Term Goal (STG) Pt will demonstrate improved sitting posture knowledge by self correcting on request, and improved standing posture with less flexion at hips and knees (Initial: hip flexion 10 deg's, knee flexion 15 deg's) . (07/12/20: Hip flex is 5 deg's ) STG Duration 07/20/20 (07/19/20 MET GOAL) Divisional Merchandising Manager Goal (LTG) Pt will demonstrate improve posture as noted by decrease vertical distance between C7 and L5 - 49 cm initial. (09/07/20 Vertical distance between C7 and L5 is 43 cm. In standing, hip position is neutral with 0 deg's of hip flexion). LTG Duration 09/12/20 (09/07/20: MET GOAL) Three Impairment Decreased walking ability Short Term Goal (STG) Pt will be able to walk 10x in hallway without back brace without pain (Initial: pt must use back brace for no pain with walking 10x). 07/10/20: is walking in hallway approx 1-1/4 mile, 10' stints, in her house w/o pain, wearing brace by end. STG Duration 07/20/20 (07/26/20: GOAL MET) [facility] Goal (LTG) Pt will be able to return to her prior function of walking 1.5 miles in the house in a day without back brace and without pain. (08/17/20: Pt walking 1-1/4 mile total in hallway with rests in 5-10', without back brace without pain). LTG Duration 09/12/20 (08/17/20: MET GOAL) Two Impairment Low back pain rated 3/10 with activity/walking Short Term Goal (STG) Decrease low back pain to 1-2/ 10 with activity or walking. (08/31/20 Walking outside 1/2 mile without a stop. At end of day there is pain that is controlled with arching stretch) STG Duration 07/20/20 (09/07/20: Mornings: MET, Afternoon/evening: NOT MET) Divisional Merchandising Manager Goal (LTG) Pt will have 0-1/10 back pain with walking and no pain with functional activities at home (able to stand for functional activities such as cooking). (08/31/20: No pain with functional activities at home except late in evening) LTG Duration 09/12/20 (09/07/20: Functional actvities: MET, walking: NOT MET) One Impairment Lack of appropriate self care HEP. Short Term Goal (STG) Pt will be educated on a self care spinal extension program. (HEP TO DATE: SUPINE: anter chest stretch and elbow dig for spinal ext & max tolerated shoulder flex; SITTING: *Scap retract w/TB, INSTRUCTIONS: Supine: WL strengthening Sitting: *QL isometric strengthening of hand press up into table) STG Duration 07/06/20 (07/19/20: MET GOAL) Divisional Merchandising Manager Goal (LTG) Pt will be independent on a self care progressive core stablization program. HEP TO DATE: SUPINE: *anter chest stretch, *elbow dig or hand push/press for spinal ext , *max tolerated shoulder flex, * hooklie general spinal ext SITTING: *Scap retract w/TB, STANDING: *Iliopsoas stretch, *shoulder ext, *wall posture, *facing wall on elbows TS ext INSTRUCTIONS: Supine: *QL strengthening Sitting: *QL isometric strengthening of hand press up into table) LTG Duration 09/12/20 (06/28/20: MET GOAL) Assessment Summary Assessment The pt has done very well with therapy. Her posture has greatlhy improved and she shows good tolerance to strengthening of her trunk extensors. 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 The pt experiences discomfort only in the afternoon and evenings, but is able to manage her discomfort with rest, postioning and exercise. It is expected that the pt will achieve her goals of no pain, or very little back pain at end of day, but will take time and continued exercise on her home program. Mrs. Hall is agreeable to be discharged at this time to her independent program, but may need therapy in the future if she is not able to progress on her own to achieve her detention goals. Physical Therapy Plan Discharge Physical Therapy Discharge Comments Pt has met most of her goals and is ready to be placed on her independent HEP to work towards completely achieving Goal #2. If the pt is unable to attain her goals on her own further therapy to help progress her towards returning to her prior level of function. Thank you for your referral.
== END 2020-09-12 08:25 | disposition home or self-care (01) ==
LOC: PHYS 09:45
PROVIDERS: PCP Family Medicine; Referring Provider Family Medicine; Visit Provider Family Medicine
DX: M54.5 Low back pain (principal); M62.81 Muscle weakness (generalized); R29.3 Abnormal posture; R26.89 Other abnormalities of gait and mobility
CPT/HCPCS: 97110; 97116; 97140; 97162; 97530; 97535

== ENCOUNTER → 2020-11-02 09:29 | Outpatient (CLI) | payer MEDICARE, SELFPAY ==
[2020-11-02 12:12] LABS: BUN Creatinine Ratio 27.8 (6-22); Blood Urea Nitrogen 22 mg/dL (7-17); Calcium 9.3 mg/dL (8.4-10.2); Carbon Dioxide 27 mmol/L (22-32); Chloride 101 mmol/L (98-107); Estimated Glomerular Filt Rate > 60.0 mL/min (>60); Glucose 79 mg/dL (80-110); HEMOLYSIS < 15 (0-50); Potassium 4.8 mmol/L (3.4-5.1); Sodium 134 mmol/L (137-145)
[2020-11-02 12:42] LABS: Vitamin D 25 Hydroxy (D3) 31.3 ng/mL (30.0-100.0)
[2020-11-02 12:57] LABS: TSH w/ Reflex to FT4 0.51 uIU/mL (0.47-4.68)
== END ==
PROVIDERS: PCP Family Medicine; Referring Provider Family Medicine; Visit Provider Family Medicine
DX: M81.0 Age-related osteoporosis without current pathological fracture (principal); Z78.0 Asymptomatic menopausal state; Z51.81 Encounter for therapeutic drug level monitoring; Z79.1 Long term (current) use of non-steroidal anti-inflammatories (NSAID); Z87.891 Personal history of nicotine dependence
CPT/HCPCS: 36415; 77080; 80048; 82306; 84443

== ENCOUNTER → 2021-06-04 08:42 | Outpatient (CLI) | payer MEDICARE, SELFPAY ==
[2021-06-04 09:54] LABS: Hemoglobin A1C% w Est Avg Glu 5.4 % (4.0-6.0)
[2021-06-04 10:19] LABS: Alanine Aminotransferase 19 IU/L (<35); Albumin 4.8 g/dL (3.5-5.0); Albumin Globulin Ratio 1.7 (1.0-2.8); Alkaline Phosphatase 63 U/L (38-126); Aspartate Aminotransferase 29 IU/L (14-36); BUN Creatinine Ratio 29.4 (6-22); Bilirubin Total 0.6 mg/dL (0.2-1.3); Blood Urea Nitrogen 20 mg/dL (7-17); Calcium 10.3 mg/dL (8.4-10.2); Carbon Dioxide 29 mmol/L (22-32); Chloride 98 mmol/L (98-107); Cholesterol 216 mg/dL (140-199); Estimated Glomerular Filt Rate > 60.0 mL/min (>60); Globulin 2.9 g/dL (1.7-4.1); Glucose 107 mg/dL (80-110); HDL Cholesterol 87 mg/dL (40-60); HEMOLYSIS < 15 (0-50); LDL Cholesterol Calculated 111 mg/dL (<100); Potassium 4.4 mmol/L (3.4-5.1); Sodium 133 mmol/L (137-145); Total Protein 7.7 g/dL (6.3-8.2); Triglycerides 91 mg/dL (35-150)
[2021-06-04 10:27] LABS: TSH w/ Reflex to FT4 0.67 uIU/mL (0.47-4.68)
[2021-06-04 10:48] LABS: Cortisol Random 14.7 ug/dL
[2021-06-04 11:32] LABS: Calcium Urine Random 17.6 mg/dL
[2021-06-05 16:36] LABS: Deamidated Gliadin IgA 4 units (0-19); Deamidated Gliadin IgG 2 units (0-19); IGA 222 mg/dL (64-422); Tissue Transglutaminase IgA <2 U/mL (0-3); Tissue Transglutaminase IgG <2 U/mL (0-5); t-Transglutaminase IgA <2 U/mL (0-3)
[2021-06-06 13:24] LABS: Albumin 4.5 g/dL (2.9-4.4); Alpha-1-Globulin 0.2 g/dL (0.0-0.4); Alpha-2-Globulin 0.7 g/dL (0.4-1.0); Globulin Total 3.1 g/dL (2.2-3.9); Protein, Total 7.6 g/dL (6.0-8.5)
== END ==
PROVIDERS: PCP Family Medicine; Referring Provider Family Medicine; Visit Provider Family Medicine
DX: E11.9 Type 2 diabetes mellitus without complications (principal); M81.0 Age-related osteoporosis without current pathological fracture; H34.8322 Tributary (branch) retinal vein occlusion, left eye, stable; I10 Essential (primary) hypertension; E78.5 Hyperlipidemia, unspecified
CPT/HCPCS: 36415; 80053; 80061; 82306; 82340; 82533; 82784; 83036; 83516; 84155; 84165; 84443; 86255

== ENCOUNTER → 2021-10-30 14:18 | Outpatient (CLI) | payer MEDICARE, SELFPAY ==
[2021-10-30 19:10] LABS: Creatinine Urine Random 95.3 mg/dL
[2021-10-30 19:12] LABS: Microalbumin Urine Random 2.1 mg/dL (0-1.6)
== END ==
PROVIDERS: PCP Family Medicine; Referring Provider Family Medicine; Visit Provider Family Medicine
DX: E11.9 Type 2 diabetes mellitus without complications (principal)
CPT/HCPCS: 82043; 82570

== ENCOUNTER → 2021-11-08 09:25 | Outpatient (CLI) | payer MEDICARE, SELFPAY | PROVIDERS: PCP Family Medicine; Referring Provider Family Medicine; Visit Provider Family Medicine | DX: Z78.0 Asymptomatic menopausal state (principal); M80.00XS Age-related osteoporosis with current pathological fracture, unspecified site, sequela; Z85.828 Personal history of other malignant neoplasm of skin; Z90.710 Acquired absence of both cervix and uterus | CPT/HCPCS: 77080 ==

== ENCOUNTER → 2022-02-25 09:00 | Outpatient (CLI) | payer MEDICARE, SELFPAY | PROVIDERS: PCP Pediatrics; Referring Provider Internal Medicine; Visit Provider Internal Medicine | DX: Z23 Encounter for immunization (principal) | CPT/HCPCS: 90471; 90686 ==

== ENCOUNTER → 2022-06-26 08:14 | Outpatient (CLI) | payer MEDICARE, SELFPAY ==
[2022-06-26 08:50] LABS: Hemoglobin A1C% w Est Avg Glu 5.6 % (4.0-6.0)
[2022-06-26 08:57] LABS: Add Manual Diff / Slide Review NO; Basophils Absolute Auto 0 /uL (0-100); Basophils Percent Auto 0.6 % (0-2); Eosinophils Absolute Auto 300 /uL (0-450); Eosinophils Percent Auto 3.4 % (2-4); Hematocrit 37.6 % (36-46); Hemoglobin 12.5 g/dL (12.0-16.0); Lymphocytes Absolute Auto 2200 /uL (1100-4500); Lymphocytes Percent Auto 28.4 % (25-40); Mean Corpuscular HGB Conc 33.2 % (30-36); Mean Corpuscular Hemoglobin 30.2 PG (26-34); Mean Corpuscular Volume 90.9 fL (80-100); Monocytes Absolute Auto 700 /uL (0-900); Monocytes Percent Auto 9.3 % (3-14); Neutrophils Absolute Auto 4500 /uL (1500-7000); Neutrophils Percent Auto 58.3 % (50-75); Platelet Count 301 X10^3/uL (150-400); Red Blood Cell Count 4.14 X10^6/uL (4.0-5.2); Red Cell Distribution Width 13.4 % (11.6-14.8); White Blood Cell Count 7.8 X10^3/uL (4.5-11.0)
[2022-06-26 08:58] LABS: Alanine Aminotransferase 20 IU/L (<35); Albumin 4.3 g/dL (3.5-5.0); Albumin Globulin Ratio 1.4 (1.0-2.8); Alkaline Phosphatase 55 U/L (38-126); Aspartate Aminotransferase 27 IU/L (14-36); BUN Creatinine Ratio 43.8 (6-22); Bilirubin Total 0.6 mg/dL (0.2-1.3); Blood Urea Nitrogen 28 mg/dL (7-17); Carbon Dioxide 28 mmol/L (22-32); Chloride 100 mmol/L (98-107); Cholesterol 172 mg/dL (140-199); Estimated Glomerular Filt Rate > 60 mL/min (>60); Globulin 3.1 g/dL (1.7-4.1); Glucose 110 mg/dL (80-110); HDL Cholesterol 69 mg/dL (40-60); HEMOLYSIS < 15 (0-50); LDL Cholesterol Calculated 84 mg/dL (<100); Potassium 4.3 mmol/L (3.4-5.1); Sodium 136 mmol/L (137-145); Total Protein 7.4 g/dL (6.3-8.2); Triglycerides 93 mg/dL (35-150)
[2022-06-26 09:38] LABS: Creatinine Urine Random 38.6 mg/dL
[2022-06-26 09:42] LABS: Microalbumi Creatinin Ratio Ur 18.1 ug/mg CR (<30); Microalbumin Urine Random 0.7 mg/dL (0-1.6)
== END ==
PROVIDERS: PCP Family Medicine; Referring Provider Family Medicine; Visit Provider Family Medicine
DX: E11.9 Type 2 diabetes mellitus without complications (principal); E78.00 Pure hypercholesterolemia, unspecified; I10 Essential (primary) hypertension
CPT/HCPCS: 36415; 80053; 80061; 82043; 82570; 83036; 85025

== ENCOUNTER → 2023-01-26 08:31 | Outpatient (CLI) | payer MEDICARE, SELFPAY ==
[2023-01-26 09:08] LABS: Add Manual Diff / Slide Review NO; Basophils Absolute Auto 100 /uL (0-100); Eosinophils Absolute Auto 200 /uL (0-450); Eosinophils Percent Auto 2.4 % (2-4); Hematocrit 37.5 % (36-46); Hemoglobin 12.7 g/dL (12.0-16.0); Lymphocytes Absolute Auto 2100 /uL (1100-4500); Lymphocytes Percent Auto 29.1 % (25-40); Mean Corpuscular HGB Conc 33.8 % (30-36); Mean Corpuscular Hemoglobin 30.6 PG (26-34); Mean Corpuscular Volume 90.6 fL (80-100); Monocytes Absolute Auto 700 /uL (0-900); Monocytes Percent Auto 9.5 % (3-14); Neutrophils Absolute Auto 4100 /uL (1500-7000); Platelet Count 303 X10^3/uL (150-400); Red Blood Cell Count 4.14 X10^6/uL (4.0-5.2); White Blood Cell Count 7.1 X10^3/uL (4.5-11.0)
[2023-01-26 09:21] LABS: Hemoglobin A1C% w Est Avg Glu 5.4 % (4.0-6.0)
[2023-01-26 10:01] LABS: Alanine Aminotransferase 20 IU/L (<35); Albumin 4.2 g/dL (3.5-5.0); Albumin Globulin Ratio 1.6 (1.0-2.8); Alkaline Phosphatase 57 U/L (38-126); Aspartate Aminotransferase 28 IU/L (14-36); BUN Creatinine Ratio 27.7 (6-22); Bilirubin Total 0.6 mg/dL (0.2-1.3); Blood Urea Nitrogen 18 mg/dL (7-17); Calcium 9.3 mg/dL (8.4-10.2); Carbon Dioxide 28 mmol/L (22-32); Chloride 101 mmol/L (98-107); Cholesterol 192 mg/dL (140-199); Estimated Glomerular Filt Rate > 60 mL/min (>60); Globulin 2.6 g/dL (1.7-4.1); Glucose 116 mg/dL (80-110); HDL Cholesterol 61 mg/dL (40-60); HEMOLYSIS < 15 (0-50); LDL Cholesterol Calculated 108 mg/dL (<100); Potassium 4.5 mmol/L (3.4-5.1); Sodium 136 mmol/L (137-145); Total Protein 6.8 g/dL (6.3-8.2); Triglycerides 117 mg/dL (35-150)
[2023-01-26 10:47] LABS: Creatinine Urine Random 41.9 mg/dL
[2023-01-26 10:51] LABS: Microalbumin Urine Random 0.8 mg/dL (0-1.6)
== END ==
PROVIDERS: PCP Family Medicine; Referring Provider Family Medicine; Visit Provider Family Medicine
DX: E11.9 Type 2 diabetes mellitus without complications (principal); E78.00 Pure hypercholesterolemia, unspecified
CPT/HCPCS: 36415; 80053; 80061; 82043; 82570; 83036; 85025

== ENCOUNTER → 2023-03-11 14:05 | Outpatient (CLI) | payer MEDICARE, SELFPAY | PROVIDERS: PCP Family Medicine; Referring Provider Family Medicine; Visit Provider Family Medicine | DX: Z23 Encounter for immunization (principal) | CPT/HCPCS: 90471; 90662 ==

== ENCOUNTER → 2023-09-25 10:48 | Outpatient (CLI) | payer MEDICARE, SELFPAY ==
[2023-09-25 14:19] LABS: Creatinine Urine Random 33.6 mg/dL
[2023-09-25 14:23] LABS: Microalbumi Creatinin Ratio Ur 32.7 ug/mg CR (<30); Microalbumin Urine Random 1.1 mg/dL (0-1.6)
== END ==
PROVIDERS: PCP Family Medicine; Referring Provider Family Medicine; Visit Provider Family Medicine
DX: E11.9 Type 2 diabetes mellitus without complications (principal)
CPT/HCPCS: 82043; 82570

== ENCOUNTER → 2024-03-11 11:43 | Outpatient (CLI) | payer MEDICARE, SELFPAY | PROVIDERS: PCP Family Medicine; Referring Provider Internal Medicine; Visit Provider Internal Medicine | DX: Z23 Encounter for immunization (principal) | CPT/HCPCS: 90471; 90662 ==

== ENCOUNTER → 2024-07-28 13:44 | Outpatient (CLI) | payer MEDICARE, SELFPAY ==
[2024-07-28 14:10] LABS: Estimated Glomerular Filt Rate > 60 mL/min (>60)
== END ==
PROVIDERS: Radiology Diagnostic Radiology; PCP Family Medicine
DX: C80.1 Malignant (primary) neoplasm, unspecified (principal)
CPT/HCPCS: 36415; 82565

== ENCOUNTER → 2024-07-29 08:23 | Outpatient (CLI) | payer MEDICARE, SELFPAY ==
--- NOTE | 2024-07-29 08:31 | DI.CT.S_ITS ---
PROCEDURE: CT HEAD/BRAIN W CON INDICATIONS: squamous cell carcinoma TECHNIQUE: 4.5 mm thick angled axial sections acquired from the foramen magnum to the vertex after the administration of intravenous contrast, with coronal and sagittal reformats. For radiation dose reduction, the following was used: automated exposure control, adjustment of mA and/or kV according to patient size. COMPARISON: None. FINDINGS: Image quality: Excellent. CSF Spaces: Basal cisterns are patent. No extra-axial fluid collections. Ventricles are normal in size and shape. Brain: No midline shift. No intracranial bleeds or masses. No abnormal intracranial enhancement. Guerra-white interface appears normal. Age-related global volume loss and chronic microvascular ischemic changes. Intracranial atherosclerotic vascular calcifications are present. Please note, the very inferior aspect of the cerebellum is not included within the field of view. Skull and face: Calvarium and visualized facial bones appear intact, without suspicious lesions. Lens replacements. Sinuses: Visualized sinuses and mastoids are clear. IMPRESSION: No abnormal intracranial enhancement. No acute intracranial abnormalities. Dictated by: Abraham Montalvo M.D. on 07/29/2024 at 14:12 Approved by: Abraham Montalvo M.D. on 07/29/2024 at 14:14
--- NOTE | 2024-07-29 08:32 | DI.CT.S_ITS ---
PROCEDURE: CT SOFT TISSUE NECK W CON INDICATIONS: squamous cell carcinoma TECHNIQUE: After the administration of intravenous contrast, 3.0 mm axial sections acquired from the sella to the aortic arch. Additional oblique axial 3.0 mm sections acquired through the pharynx. 3 mm thick coronal and sagittal reformats were generated. For radiation dose reduction, the following was used: automated exposure control. COMPARISON: None. FINDINGS: Image quality: Excellent. Lymph nodes: Multiple prominent right-sided cervical lymph nodes. For example an 8 mm 2A lymph node (7/39), a 6 mm 1 B lymph node (7/41). Vessels: Visualized vasculature appears patent. Atherosclerotic vascular calcifications. At least moderate stenosis of the right proximal ICA. Neck spaces: Fungating mass on the right cheek measuring 3.7 x 2.8 x 3.8 cm (AP by TV by cc). There appears to be extension through the platysma and loss of fat planes between the masseter muscle concerning for invasion. The oropharynx, nasopharynx, and pharynx demonstrate no mucosal lesions. The vocal cords, false vocal cords, pyriform sinuses, epiglottis, vallecula, and tongue base all appear normal. Glands: The parotid and submandibular glands appear normal. Thyroid gland demonstrates small nodules, some which are calcified. No nodules which require further evaluation based on consensus criteria.. Miscellaneous: Visualized brain and orbits appear normal. Bilateral lens replacements. Lung apices appear clear, please refer to same day CT of the chest. Bones: No suspicious bony lesions. Multilevel degenerative changes of the spine. Visualized sinuses and mastoids appear unremarkable. IMPRESSION: Large fungating mass on the right cheek measuring up to 3.8 cm with loss of fat plane between the underlying masseter muscle concerning for invasion. Prominent right-sided cervical lymph nodes concerning for metastatic disease. Atherosclerotic vascular calcifications with at least moderate stenosis of the right proximal ICA. Dictated by: Abraham Montalvo M.D. on 07/29/2024 at 14:18 Approved by: Abraham Montalvo M.D. on 07/29/2024 at 14:25
--- NOTE | 2024-07-29 09:01 | DI.CT.S_ITS ---
PROCEDURE: CT CHEST W CON INDICATIONS: SQUAMOUS CELL CARCINOMA TECHNIQUE: After the administration of intravenous contrast, 5 mm thick sections acquired from the pulmonary apices to the posterior costophrenic angles. 1 mm axial lung, 5 mm thick coronal and sagittal reformats and 7 mm axial MIP were acquired. For radiation dose reduction, the following was used: automated exposure control, adjustment of mA and/or kV according to patient size. COMPARISON: None. FINDINGS: Image quality: Diagnostic. Lower Neck: No enlarged lymph nodes. Thyroid: Subcentimeter peripherally calcified right lower pole thyroid nodule. Axillae: No enlarged lymph nodes. Chest Wall: No chest wall mass. Bones: Mild anterior vertebral body height loss of T2 and incidentally noted at C7. Likely osteoporotic in nature. Early Schmorl's node formation along the T8 inferior endplate. No suspicious bone lesions. Lungs and Pleura: Innumerable bilateral 3-4 mm ground-glass nodules in the periphery of the upper lobes bilaterally and to lesser extent posteriorly in both lower lobes. No solid or suspicious cavitary lung nodules or masses. Central and peripheral airways are normal without bronchial wall thickening or bronchiectasis. No ground-glass opacities or dense airspace consolidations. No pleural effusion or pneumothorax. Heart: Mildly enlarged heart, particularly right ventricle compared to left. No pericardial effusion. Mild coronary artery calcification. Thoracic Vessels: The aorta and pulmonary arteries demonstrate normal size. Moderate aortic valvular calcification. Mediastinum and Shannon: No enlarged lymph nodes. Esophagus: Normal esophagus without wall thickening. Tiny hiatal hernia. Upper Abdomen: Visualized upper abdomen solid organs and bowel loops appear normal. IMPRESSION: Innumerable peripheral bilateral upper and lower lobe ground-glass nodules. These are nonspecific and more likely infectious or inflammatory, much less likely metastatic disease. No other mass or adenopathy to suggest metastatic disease in the chest. Mild right heart enlargement. Consistent with remote echocardiography. Dictated by: Ana Quintero M.D. on 07/29/2024 at 13:57 Approved by: Ana Quintero M.D. on 07/29/2024 at 14:07
== END ==
PROVIDERS: PCP Family Medicine; Referring Provider Dermatology; Visit Provider Dermatology
DX: C44.329 Squamous cell carcinoma of skin of other parts of face (principal); R59.0 Localized enlarged lymph nodes; R91.8 Other nonspecific abnormal finding of lung field; I65.21 Occlusion and stenosis of right carotid artery; I51.7 Cardiomegaly; I25.10 Atherosclerotic heart disease of native coronary artery without angina pectoris; E04.2 Nontoxic multinodular goiter
CPT/HCPCS: 70460; 70491; 71260; Q9967

== ENCOUNTER → 2024-08-05 07:49 | Outpatient (CLI) | payer MEDICARE, SELFPAY ==
--- NOTE | 2024-08-05 07:51 | DI.MRI.S_ITS ---
PROCEDURE: MR ORBITS FACE NECK WO/W CON INDICATIONS: SQUAMOUS CELL CARCINOMA SKIN RT CHEEK TECHNIQUE: Sagittal/axial/coronal T1 spin echo and STIR. After the administration of contrast, axial/coronal/sagittal T1 fast spin echo with fat saturation through the neck. COMPARISON: [facility], CT, CT SOFT TISSUE NECK W CON, 07/29/2024, 8:57. FINDINGS: Image quality: Excellent. Lymph nodes: 0.9 cm right level 2A lymph node, previously measuring approximately 0.7 cm. Right level 1 B node measures 0.7 cm compared to 0.6 cm on prior exam. Vessels: Visualized vasculature appears normal, with normal flow voids and enhancement. Neck spaces: The enhancing irregularly marginated mass within the right facial/temporal soft tissues is unchanged in size measuring approximately 3.6 x 2.8 x 3.7 cm. There is increased signal as well as enhancement within the platysma as well as portions of the masseter muscle. As identified previously there are loss of fat planes. The oropharynx, nasopharynx and pharynx are unremarkable, without mucosal lesions seen. Vocal cords, false vocal cords, pyriform sinuses, epiglottis, vallecula, and tongue base all appear normal. Extramucosal spaces of the neck also appear unremarkable. Glands: The parotid and submandibular glands appear normal. Thyroid gland is unremarkable. Miscellaneous: Visualized brain and orbits appear normal. Lung apices appear clear. Superficial soft tissues appear normal. Visualized sinuses and mastoids appear clear. Bones: Marrow has normal overall signal. IMPRESSION: Relatively unchanged appearance of right facial mass and borderline right adenopathy. It demonstrates enhancement as well as loss of fat planes within the adjacent masseter muscle. This does raise suspicion for invasion. No distinctly isolated perineural invasion. However, continued short follow-up is recommended given enhancement pattern in loss of fat planes. Dictated by: Kimberley Denson M.D. on 08/05/2024 at 11:37 Approved by: Kimberley Denson M.D. on 08/05/2024 at 11:42
== END ==
PROVIDERS: PCP Family Medicine; Referring Provider Radiology Radiation Oncology; Visit Provider Radiology Radiation Oncology
DX: C44.329 Squamous cell carcinoma of skin of other parts of face (principal)
CPT/HCPCS: 70543; A9579

== ENCOUNTER → 2024-11-07 08:49 | Outpatient (CLI) | payer MEDICARE, SELFPAY ==
--- NOTE | 2024-11-07 08:51 | DI.MRI.S_ITS ---
PROCEDURE: MR ORBITS FACE NECK WO/W CON INDICATIONS: Carcinoma of skin rt cheek TECHNIQUE: Sagittal/axial/coronal T1 spin echo and STIR. After the administration of contrast, axial/coronal/sagittal T1 fast spin echo with fat saturation through the neck. COMPARISON: [facility], MR, MR ORBITS FACE NECK WO/W CON, 08/05/2024, 8:09. FINDINGS: Image quality: Excellent. Lymph nodes: Few prominent right cervical lymph nodes are decreased in size compared to prior. For example a right 2A lymph node measuring 7 mm in short axis (), previously 9 mm. No enlarged cervical lymph nodes. Vessels: Visualized vasculature appears normal, with normal flow voids and enhancement. Neck spaces: Interval resection of right cheek mass. Scarring is noted. No definite masslike enhancement to suggest residual or recurrent disease. The oropharynx, nasopharynx and pharynx are unremarkable, without mucosal lesions seen Extramucosal spaces of the neck also appear unremarkable. Glands: The parotid and submandibular glands appear normal. Thyroid gland demonstrates no significant abnormality. Miscellaneous: Visualized brain and orbits appear normal. Lens replacements, Superficial soft tissues appear normal. Visualized sinuses and mastoids appear clear. Bones: Marrow has normal overall signal. IMPRESSION: Interval resection of right face mass without findings concerning for residual or recurrent disease. No enlarged cervical lymph nodes. Few prominent lymph nodes are decreased in size compared to prior. Dictated by: Abraham Montalvo M.D. on 11/07/2024 at 14:53 Approved by: Abraham Montalvo M.D. on 11/07/2024 at 14:54
== END ==
LOC: MRI 08:50
PROVIDERS: PCP Family Medicine; Referring Provider Student in an Organized Health Care Education/Training Program; Visit Provider Student in an Organized Health Care Education/Training Program
DX: C44.329 Squamous cell carcinoma of skin of other parts of face (principal); D04.39 Carcinoma in situ of skin of other parts of face; Z79.69 Long term (current) use of other immunomodulators and immunosuppressants
CPT/HCPCS: 70543; A9579